=== PATIENT | male | born 1955 | race Hispanic/Latino ===

== ENCOUNTER 2017-08-13 11:24 | Inpatient (IN) | payer BC ==
--- NOTE | 2017-08-13 12:06 | C.PDOC ---
History Of Present Illness Patient MARIA ELENA after syncopal episode at home. Patient states he was going into another room when he felt light-headed and syncopized. heard a thud (was downstairs), came upstairs and saw patient on floor, awake but confused. Patient admits to syncope on Wednesday also, similar symptoms but did not seek medical attention. He denies chest pain, palpitations, SOB, abdominal pain,. He admits to feeling nauseous, generalized weakness, and had 1 episode of bilious vomiting en route to hospital. Patient denies visual changes, extremity weakness, sensory changes, facial droop, slurred speech. Time Seen by Provider: 08/13/17 11:44 Chief Complaint (Nursing): Syncope History Per: Patient, EMS, Family Onset/Duration Of Symptoms: Mins Current Symptoms Are (Timing): Better Activity At Onset Of Symptoms: Standing, Walking Associated Symptoms Preceding Syncopal Episode: Lightheadedness Past Medical History Reviewed: Historical Data, Nursing Documentation, Vital Signs Vital Signs: Last Vital Signs Temp 97.5 F L 08/15/17 07:20 Pulse 110 H 08/15/17 07:30 Resp 20 08/15/17 07:20 BP 150/70 08/15/17 09:08 Pulse Ox 95 08/15/17 07:20 - Medical History PMH: HTN Family History: States: No Known Family Hx - Social History Hx Alcohol Use: Yes Hx Substance Use: No - Immunization History Hx Tetanus Toxoid Vaccination: No Hx Influenza Vaccination: No Hx Pneumococcal Vaccination: No Review Of Systems Except As Marked, All Systems Reviewed And Found Negative. Constitutional: Negative for: Fever, Chills Cardiovascular: Positive for: Light Headedness. Negative for: Chest Pain, Palpitations Respiratory: Negative for: Shortness of Breath Gastrointestinal: Positive for: Nausea, Vomiting. Negative for: Abdominal Pain , Diarrhea Genitourinary: Negative for: Dysuria, Hematuria Neurological: Positive for: Dizziness, Other (syncope). Negative for: Weakness , Numbness, Confusion, Seizures, Altered Mental Status, Headache Physical Exam - Physical Exam Appears: Well, Non-toxic, No Acute Distress Skin: Normal Color, Warm, Dry Eye(s): bilateral: PERRL, EOMI, left: Other (left periorbital ecchymosis) Oral Mucosa: Moist Neck: Normal, Normal ROM, No Step Off Deformity, Supple Cardiovascular: Rhythm Regular Respiratory: Normal Breath Sounds, No Rales, No Rhonchi, No Wheezing Gastrointestinal/Abdominal: Normal Exam, Bowel Sounds, Soft, No Tenderness Neurological/Psych: Oriented x3, Normal Speech, Normal Cognition, Normal Cranial Nerves, No Cerebellar Signs, Normal Motor, Normal Sensation ED Course And Treatment - Laboratory Results Result Diagrams: 08/15/17 08:25 08/15/17 08:25 ECG: Interpreted By Me, Viewed By Me (NSR 96 bpm, left axis deviation, Q waves II, III, aVF, no acute ST/T wave changes ) ECG Interpretation: Abnormal O2 Sat by Pulse Oximetry: 97 (RA) Pulse Ox Interpretation: Normal - CT Scan/US CT HEAD Other Rad Studies (CT/US): Read By Radiologist, Radiology Report Reviewed CT/US Interpretation: Accession No. : [id number]. Patient Name / ID : FRANCISCA DIAMOND / [id number]. Exam Date : 08/13/2017 12:57:57 ( Approved ). Study Comment : Sex / Age : M / 62Y. Creator : Samira Arevalo. Dictator : Babita Alvarez MD. Shoe Cutter : Computer Hardware Designer : Babita Alvarez MD. Approver2 : Report Date : 08/13/2017 13:06:37. My Comment : . PROCEDURE: CT HEAD WITHOUT CONTRAST. HISTORY: Syncope. COMPARISON: None available. TECHNIQUE: Axial computed tomography images were obtained through the head/ brain without intravenous contrast. Radiation dose: Total exam DLP = 838.01 mGy-cm. This CT exam was performed using one or more of the following dose reduction techniques: Automated exposure control, adjustment of the mA and/or kV according to patient size, and/or use of iterative reconstruction technique. FINDINGS: HEMORRHAGE: No intracranial hemorrhage. BRAIN: There are mild chronic microangiopathic changes. There is no mass, mass effect or abnormal extra-axial fluid collection. There are coarse atherosclerotic calcifications in the cavernous carotid arteries. VENTRICLES: There is moderate age-related global parenchymal volume loss and proportionate enlargement of the ventricles and cortical sulci. CALVARIUM: There is no calvarial fracture. There is a small right posterior parietal scalp hematoma. PARANASAL SINUSES: Predominantly clear. MASTOID AIR CELLS: Predominantly clear. OTHER FINDINGS: None. IMPRESSION: No acute intracranial abnormality. Mild chronic microangiopathic changes and moderate age-related global parenchymal volume loss. CT ORBITS Other Rad Studies (CT/US): Read By Radiologist, Radiology Report Reviewed CT/US Interpretation: Accession No. : [id number]. Patient Name / ID : FRANCISCA DIAMOND / [id number]. Exam Date : 08/13/2017 13:00:34 ( Approved ). Study Comment : Sex / Age : M / 62Y. Creator : Samira Arevalo. Dictator : Babita Alvarez MD. Shoe Cutter : Computer Hardware Designer : Babita Alvarez MD. Approver2 : Report Date : 08/13/2017 13:06:43. My Comment : . PROCEDURE: CT ORBITS WITHOUT CONTRAST. HISTORY: Syncope, left orbital injury. COMPARISON: None available. TECHNIQUE: Axial CT images of the orbits were obtained. Coronal and sagittal reformats were generated. Radiation dose: Total exam DLP = 822.28 mGy-cm. This CT exam was performed using one or more of the following dose reduction techniques: Automated exposure control, adjustment of the mA and/or kV according to patient size, and/or use of iterative reconstruction technique. FINDINGS: RIGHT ORBIT: RIGHT BONY ORBIT: There is no acute orbital wall fracture. The lens is normally located. RIGHT INTRAORBITAL STRUCTURES: Globe: Normal. Extraocular muscles: Normal. Post septal space: Normal. Optic Nerve: Normal. Lacrimal Apparatus: Normal. RIGHT PRESEPTAL SOFT TISSUES: Normal. LEFT ORBIT: LEFT BONY ORBIT: There is no acute orbital wall fracture. The lens is normally located. LEFT INTRAORBITAL STRUCTURES: Globe: Normal. Extraocular muscles: Normal. Post septal space: Normal. Optic Nerve: Normal. . Lacrimal Apparatus: Normal. LEFT PRESEPTAL SOFT TISSUES: Normal. OTHER: There is an old fracture deformity in the left nasal bone. Open. IMPRESSION: No acute orbital fracture. No evidence of acute globe injury. Progress Note: Blood work, EKG, CXR, CT head ordered and reviewed. PO Kdur given for mild hypokalemia. - Physician Consult Information Physician Contacted: Jocy Fuller Outcome Of Conversation: Discussed patient with hospitalist, agrees with admission for syncope. Disposition - Disposition Disposition: HOSPITALIZED Disposition Time: 15:19 Condition: STABLE - Clinical Impression Clinical Impression: Closed head injury, Syncope Decision To Admit - Pt Status Changed To: Hospital Disposition Of: Inpatient - Admit Certification Admit to Inpatient:: After my assessment, the patient will require hospitalization for at least two midnights. This is because of the severity of symptoms shown, intensity of services needed, and/or the medical risk in this patient being treated as an outpatient. - InPatient: Physician Admission Certification: I certify that this patient requires 2 or more midnights of care for the following reason:: see notes - . Bed Request Type: Telemetry Admitting Physician: Jocy Fuller Patient Diagnosis: Syncope, Closed head injury
--- NOTE | 2017-08-13 12:37 | RAD ---
PROCEDURE: CHEST RADIOGRAPH, 1 VIEW HISTORY: SYNCOPE COMPARISON: 07/05/2014 FINDINGS: LUNGS: Clear. PLEURA: No pneumothorax or pleural fluid seen. CARDIOVASCULAR: Normal. OSSEOUS STRUCTURES: No significant abnormalities. VISUALIZED UPPER ABDOMEN: Normal. OTHER FINDINGS: None. IMPRESSION: No active disease.
[2017-08-13 12:44] LABS: BASO # 0.1 K/uL (0.0-0.2); BASO % 0.7 % (0.0-2.0); EOS % 0.1 % (0.0-4.0); HEMOGLOBIN 10.8 g/dL (12.0-18.0); LYMPH # 3.1 K/uL (1.0-4.3); LYMPH % 25.7 % (20.0-40.0); MEAN CELL VOLUME 103.2 fL (80.0-94.0); MEAN CORPUSCULAR HEMOGLOBIN 35.4 pg (27.0-31.0); MEAN CORPUSCULAR HGB CONC 34.3 g/dL (33.0-37.0); MEAN PLATELET VOLUME 10.2 fL (7.2-11.7); MONO # 0.8 K/uL (0.0-0.8); MONO % 6.3 % (0.0-10.0); NEUT # 8.2 K/uL (1.8-7.0); NEUT % 67.2 % (50.0-75.0); NRBC % 0.2 % (0.0-2.0); RBC 3.04 Mil/uL (4.40-5.90); RED CELL DISTRIBUTION WIDTH 16.7 % (11.5-14.5); WHITE BLOOD COUNT 12.2 K/uL (4.8-10.8)
[2017-08-13 12:46] LABS: INR 1.2; PROTHROMBIN TIME 14.1 SECONDS (9.7-12.2)
[2017-08-13 12:49] LABS: ALB/GLOB RATIO 0.8 (1.0-2.1); ALBUMIN 3.8 g/dL (3.5-5.0); ALT/SGPT 35 U/L (21-72); AST/SGOT 123 U/L (17-59); BLOOD UREA NITROGEN 12 mg/dL (9-20); CALCIUM 8.4 mg/dl (8.6-10.4); GFR AFRICAN-AMERICAN > 60; GFR NON-AFRICAN AMERICAN > 60
[2017-08-13 13:02] LABS: B-TYPE NATRIURETIC PEPTIDE 109 pg/mL (0-900); CK-MB 1.03 ng/mL (0.0-3.38)
--- NOTE | 2017-08-13 13:22 | CT ---
PROCEDURE: CT HEAD WITHOUT CONTRAST. HISTORY: Syncope COMPARISON: None available. TECHNIQUE: Axial computed tomography images were obtained through the head/brain without intravenous contrast. Radiation dose: Total exam DLP = 838.01 mGy-cm. This CT exam was performed using one or more of the following dose reduction techniques: Automated exposure control, adjustment of the mA and/or kV according to patient size, and/or use of iterative reconstruction technique. FINDINGS: HEMORRHAGE: No intracranial hemorrhage. BRAIN: There are mild chronic microangiopathic changes. There is no mass, mass effect or abnormal extra-axial fluid collection. There are coarse atherosclerotic calcifications in the cavernous carotid arteries. VENTRICLES: There is moderate age-related global parenchymal volume loss and proportionate enlargement of the ventricles and cortical sulci. CALVARIUM: There is no calvarial fracture. There is a small right posterior parietal scalp hematoma. PARANASAL SINUSES: Predominantly clear. MASTOID AIR CELLS: Predominantly clear. OTHER FINDINGS: None. IMPRESSION: No acute intracranial abnormality. Mild chronic microangiopathic changes and moderate age-related global parenchymal volume loss.
--- NOTE | 2017-08-13 13:30 | CT ---
PROCEDURE: CT ORBITS WITHOUT CONTRAST. HISTORY: Syncope, left orbital injury COMPARISON: None available. TECHNIQUE: Axial CT images of the orbits were obtained. Coronal and sagittal reformats were generated. Radiation dose: Total exam DLP = 822.28 mGy-cm. This CT exam was performed using one or more of the following dose reduction techniques: Automated exposure control, adjustment of the mA and/or kV according to patient size, and/or use of iterative reconstruction technique. FINDINGS: RIGHT ORBIT: RIGHT BONY ORBIT: There is no acute orbital wall fracture. The lens is normally located. RIGHT INTRAORBITAL STRUCTURES: Globe: Normal. Extraocular muscles: Normal. Post septal space: Normal. Optic Nerve: Normal. Lacrimal Apparatus: Normal. RIGHT PRESEPTAL SOFT TISSUES: Normal. LEFT ORBIT: LEFT BONY ORBIT: There is no acute orbital wall fracture. The lens is normally located. LEFT INTRAORBITAL STRUCTURES: Globe: Normal. Extraocular muscles: Normal. Post septal space: Normal Optic Nerve: Normal. . Lacrimal Apparatus: Normal. LEFT PRESEPTAL SOFT TISSUES: Normal. OTHER: There is an old fracture deformity in the left nasal bone. Open IMPRESSION: No acute orbital fracture. No evidence of acute globe injury.
[2017-08-13] MEDS ORDERED: Potassium Chloride 20 mEq ER Tab PO STA ×2 (14:22→23:31)
[2017-08-13] MEDS ORDERED: Potassium Chloride 20 mEq ER Tab PO ONE (14:34)
--- NOTE | 2017-08-13 15:28 | CP.PCM.HP ---
<Sven Eason - Last Filed: 08/13/17 18:54> History of Present Illness - History of Present Illness History of Present Illness: CC: Syncopal episodes; jaundice HPI: Patient is a 62 year old with PMHx of ETOH abuse, HTN (diagnosed three years ago ), gout, hepatitis C, and spinal stenosis, presenting after syncopal episodes in his home. Pt's at bedside helping with history. Patient admits walking to bathroom this AM, and the next thing he remembers "he was on the ground." heard pt fall and found him on the ground awake, eyes open, but non- responsive for 2-3 minutes. She denies seizure-like activity or confusion when pt came to. Patient denies prodrome of palpitations, chest pain but admits frequent lightheadedness that has worsened over the last week "that makes him feel unsteady on his feet." He denies vertigo or acute changes of vision. As per EMS, pt was A&Ox3 when they arrived on scene, with BG 180. Patient A&Ox3 on arrival, c/o nausea, vomiting. Pt reports vomiting total of 3 times today, the same bilious emesis 3 times. Pt reports falling "8-10 times" in the past week, with the most recent being 3 days ago, when he also hit his head. Pt did not seek treatment after prior falls. Patient admits drinking 1 pint of Vodka "not every day, but almost every day since correction in 2004." He denies history of tremors, hallucinations, extremity weakness, numbness/tingling in his extremities, or formication. Patient admits history of hepatitis C, acquired from eating "bad [place] of [place] food" ~ 25-30 years ago. He states that "3 weeks to one month ago" he noticed his urine became "darker than normal." states she first noticed the yellowing discoloration of patient's eyes/chest "today after the fall." Admits to EGD performed approximately in 2009 that showed "irritation of the stomach." Admits to recent anorexia due to "pain after eating." Patient denies abdominal pain, hematochezia, hematemesis, or episodes of vomiting prior to the fall. He further denies dysuria, hematuria, nocturia, or increased frequency. PMHx: HTN, EtOH abuse, Spinal stenosis, Gout, Hepatitis C PSHx: Umbilical hernia repair (2001) SHx: Tobacco - 1.5 ppd (cigarettes) x 30 yrs; 1 pint of VODKA nearly daily x 13 years; Marijuana (one to two blunts during the week); Retired [employer] Officer (2004) Fam Hx: Mother - DM Allergies: denies Present on Admission - Present on Admission Any Indicators Present on Admission: No Review of Systems - Constitutional Constitutional: Anorexia. absent: Chills, Fever, Weight Loss, Weakness - EENT Eyes: absent: Blurred Vision, Diplopia Ears: Dizziness. absent: Tinnitus Nose/Mouth/Throat: absent: Epistaxis, Nasal Congestion, Sore Throat - Cardiovascular Cardiovascular: Lightheadedness, Syncope. absent: Chest Pain, Dyspnea - Respiratory Respiratory: absent: Cough, Hemoptysis - Gastrointestinal Gastrointestinal: Nausea, Vomiting (3 episodes today, bilious). absent: Abdominal Pain, Dysphagia - Genitourinary Genitourinary: Other (urine darker in last month). absent: Difficulty Urinating , Dysuria, Hematuria, Pyuria, Nocturia, Urinary Incontinence, Urinary Hesitance - Musculoskeletal Musculoskeletal: Back Pain. absent: Numbness, Tingling - Integumentary Integumentary: Jaundice ( noticed today). absent: Acne, Dry Skin, Unusual Bruising - Neurological Neurological: absent: Confusion, Focal Weakness, Tingling, Weakness - Psychiatric Psychiatric: absent: Anxiety, Depression, Suicidal Ideation - Endocrine Endocrine: absent: Fatigue, Palpitations, Polyphagia, Polyuria Past Patient History - Past Social History Smoking Status: Former Smoker - CARDIAC Hx Hypertension: Yes - MUSCULOSKELETAL/RHEUMATOLOGICAL Hx Falls: Yes - PSYCHIATRIC Hx Substance Use: No - SURGICAL HISTORY Hx Herniorrhaphy: Yes - ANESTHESIA Hx Anesthesia: Yes Hx Anesthesia Reactions: No Meds Allergies/Adverse Reactions: Allergies Allergy/AdvReac Type Severity Reaction Status Date / Time No Known Allergies Allergy Unverified 08/13/17 11:47 Physical Exam - Constitutional Appears: Well, No Acute Distress - Head Exam Head Exam: absent: ATRAUMATIC, NORMAL INSPECTION Additional comments: Ecchymoses left orbital area; - Eye Exam Eye Exam: Periorbital tenderness, Scleral icterus Pupil Exam: PERRL (sluggish). absent: Unequal Additional comments: pupils sluggish to light - ENT Exam ENT Exam: Mucous Membranes Dry, Normal External Ear Exam. absent: Mucous Membranes Moist, Normal Exam Additional comments: jaundice under tongue - Neck Exam Additional comments: no jvd appreciated; no bruit auscultated - Respiratory Exam Respiratory Exam: Wheezes - Cardiovascular Exam Cardiovascular Exam: Tachycardia, +S1, +S2, +S4, Systolic Murmur (loud) - GI/Abdominal Exam GI & Abdominal Exam: Hernia (ulbilical hernia repair scar), Normal Bowel Sounds , Organomegaly (liver mildly enlarged), Soft. absent: Diminished Bowel Sounds, Guarding, Rebound, Rigid, Tenderness Additional comments: negative downing/rovsing - Extremities Exam Extremities exam: Positive for: normal inspection. Negative for: pedal edema Additional comments: tattoo on left forearm - Back Exam Back exam: absent: CVA tenderness (L), CVA tenderness (R) - Neurological Exam Neurological exam: Abnormal Gait (slow steps), Alert, CN II-XII Intact, Oriented x3 Additional comments: on finger to nose patient would overshoot target then correct "dysmetria" MS 5/5 globally in all extremities Romberg negative, no Pronator drift Admits light touch intact Proprioception, sharp/dull diminished in lower extremities Ataxic gait; prominent heel strike; wide base Results - Vital Signs Recent Vital Signs: Last Vital Signs Temp 97.7 F 08/13/17 11:49 Pulse 100 H 08/13/17 11:49 Resp 16 08/13/17 11:49 BP 173/80 H 08/13/17 11:49 Pulse Ox 97 08/13/17 15:06 - Labs Result Diagrams: 08/13/17 12:33 08/13/17 12:33 Labs: Laboratory Results - last 24 hr 08/13/17 08/13/17 08/13/17 12:33 12:33 12:33 WBC 12.2 H RBC 3.04 L Hgb 10.8 L D Hct 31.4 L MCV 103.2 H D MCH 35.4 H MCHC 34.3 RDW 16.7 H Plt Count 213 MPV 10.2 Neut % (Auto) 67.2 Lymph % (Auto) 25.7 Young % (Auto) 6.3 Eos % (Auto) 0.1 Baso % (Auto) 0.7 Neut # (Auto) 8.2 H Lymph # (Auto) 3.1 Young # (Auto) 0.8 Eos # (Auto) 0.0 Baso # (Auto) 0.1 PT 14.1 H INR 1.2 APTT 31 Sodium 132 Potassium 3.2 L Chloride 84 L Carbon Dioxide 25 Anion Gap 26 H BUN 12 Creatinine 0.7 L Est GFR ( Amer) > 60 Est GFR (Non-Af Amer) > 60 Random Glucose 171 H Calcium 8.4 L Total Bilirubin 8.6 H AST 123 H ALT 35 Alkaline Phosphatase 391 H Total Creatine Kinase 64 CK-MB (Mass) 1.03 Troponin I < 0.0120 NT-Pro-B Natriuret Pep 109 Total Protein 8.4 H Albumin 3.8 Globulin 4.6 H Albumin/Globulin Ratio 0.8 L Assessment & Plan - Assessment and Plan (Free Text) Plan: Syncope Admit to tele Head CT (08/13/2017): No acute intracranial abnormality. Mild chronic microangiopathic changes and moderate age-related global parenchymal volume loss. (see full report) Orbit CT (08/13/2017): No acute orbital fracture. No evidence of acute globe injury. EKG: Rate 96 bpm, NSR, Q waves in inferior leads, No ST/T wave changes Troponin negative x 1; f/u 2 additional BNP 109 CXR (08/13/17): NAD NS @ 100cc/hr Neuro Consult: Dr. Ball, help appreciated - f/u CTA head/neck - f/u EEG (will not be performed until 08/16/17) Cardio Consult: Dr. Washburn, help appreciated - Mycocardial perfusion stress f/u CTA Head/Neck, ECHO, Carotid US f/u RPR, B12, Folate, TSH, Vitamin D f/u UA, UDS Abnormal EKG - pathologic Q waves EKG shows ischemic changes in inferior leads - f/u additional EKGs/troponins Cardio Consult: Dr. Washburn, help appreciated - Mycocardial perfusion stress - monitor on telemetry Elevated Bilirubin Pt noticed darker urine 3 weeks ago, noticed scleral icterus day of admission T bili 8.6 f/u US abdomen GI consult: Dr. Zaragoza - f/u reccs Transaminitis AST/ALT 123/35, Alk phos 379 f/u US abdomen CAD HOLD ASA PO due to hematoma Macrocytic Anemia Pt with long history of alcohol abuse MCV: 103.2; Hgb: 10.8 f/u iron studies, folate, b/12 levels Hx of EtOH abuse EtOH: 12 on admission MV/Thiamine/Folic Acid PO daily f/u UDS Elevated BG B Accuchecks f/u A1C, lipid panel Electrolyte abnormality K 3.2, repleted Cl 84, pt on NS Mg 0.9, repleted f/u BMP, Mg level at 10pm 08/13/17 Leukocytosis WBC 12.2, pt afebrile Etiology: unclear Monitor Prophylaxis Protonix 40mg PO Daily HOLD lovenox 40mg SC due to hematome SCDs Sven Eason PGY-2 <Jocy Fuller V - Last Filed: 08/13/17 22:35> Results - Vital Signs Recent Vital Signs: Last Vital Signs Temp 97.8 F 08/13/17 16:30 Pulse 89 08/13/17 17:00 Resp 20 08/13/17 16:30 BP 158/89 H 08/13/17 16:30 Pulse Ox 95 08/13/17 16:30 - Labs Result Diagrams: 08/13/17 12:33 08/13/17 12:33 Labs: Laboratory Results - last 24 hr 08/13/17 08/13/17 08/13/17 12:33 12:33 12:33 WBC 12.2 H RBC 3.04 L Hgb 10.8 L D Hct 31.4 L MCV 103.2 H D MCH 35.4 H MCHC 34.3 RDW 16.7 H Plt Count 213 MPV 10.2 Neut % (Auto) 67.2 Lymph % (Auto) 25.7 Young % (Auto) 6.3 Eos % (Auto) 0.1 Baso % (Auto) 0.7 Neut # (Auto) 8.2 H Lymph # (Auto) 3.1 Young # (Auto) 0.8 Eos # (Auto) 0.0 Baso # (Auto) 0.1 PT 14.1 H INR 1.2 APTT 31 Sodium 132 Potassium 3.2 L Chloride 84 L Carbon Dioxide 25 Anion Gap 26 H BUN 12 Creatinine 0.7 L Est GFR ( Amer) > 60 Est GFR (Non-Af Amer) > 60 Random Glucose 171 H Hemoglobin A1c Calcium 8.4 L Magnesium 0.9 L* Iron TIBC % Saturation Total Bilirubin 8.6 H Direct Bilirubin AST 123 H ALT 35 Alkaline Phosphatase 391 H Total Creatine Kinase 64 CK-MB (Mass) 1.03 Troponin I < 0.0120 NT-Pro-B Natriuret Pep 109 Total Protein 8.4 H Albumin 3.8 Globulin 4.6 H Albumin/Globulin Ratio 0.8 L Urine Color Urine Clarity Urine pH Ur Specific Astor Urine Protein Urine Glucose (UA) Urine Ketones Urine Blood Urine Nitrate Urine Bilirubin Urine Urobilinogen Ur Leukocyte Esterase Urine WBC (Auto) Urine RBC (Auto) Ur Squamous Epith Cells Hyaline Casts Urine Opiates Screen Urine Methadone Screen Ur Barbiturates Screen Ur Phencyclidine Scrn Ur Amphetamines Screen U Benzodiazepines Scrn U Oth Cocaine Metabols Alcohol, Quantitative 12 H 08/13/17 08/13/17 08/13/17 18:49 18:49 18:49 WBC RBC Hgb Hct MCV MCH MCHC RDW Plt Count MPV Neut % (Auto) Lymph % (Auto) Young % (Auto) Eos % (Auto) Baso % (Auto) Neut # (Auto) Lymph # (Auto) Young # (Auto) Eos # (Auto) Baso # (Auto) PT INR APTT Sodium Potassium Chloride Carbon Dioxide Anion Gap BUN Creatinine Est GFR ( Amer) Est GFR (Non-Af Amer) Random Glucose Hemoglobin A1c 4.9 Calcium Magnesium Iron TIBC % Saturation Total Bilirubin Direct Bilirubin 6.7 H AST ALT Alkaline Phosphatase Total Creatine Kinase CK-MB (Mass) Troponin I < 0.0120 NT-Pro-B Natriuret Pep Total Protein Albumin Globulin Albumin/Globulin Ratio Urine Color Urine Clarity Urine pH Ur Specific Astor Urine Protein Urine Glucose (UA) Urine Ketones Urine Blood Urine Nitrate Urine Bilirubin Urine Urobilinogen Ur Leukocyte Esterase Urine WBC (Auto) Urine RBC (Auto) Ur Squamous Epith Cells Hyaline Casts Urine Opiates Screen Urine Methadone Screen Ur Barbiturates Screen Ur Phencyclidine Scrn Ur Amphetamines Screen U Benzodiazepines Scrn U Oth Cocaine Metabols Alcohol, Quantitative 08/13/17 08/13/17 08/13/17 18:49 21:30 21:30 WBC RBC Hgb Hct MCV MCH MCHC RDW Plt Count MPV Neut % (Auto) Lymph % (Auto) Young % (Auto) Eos % (Auto) Baso % (Auto) Neut # (Auto) Lymph # (Auto) Young # (Auto) Eos # (Auto) Baso # (Auto) PT INR APTT Sodium Potassium Chloride Carbon Dioxide Anion Gap BUN Creatinine Est GFR ( Amer) Est GFR (Non-Af Amer) Random Glucose Hemoglobin A1c Calcium Magnesium Iron 167 TIBC 220 L % Saturation 76 H Total Bilirubin Direct Bilirubin AST ALT Alkaline Phosphatase Total Creatine Kinase CK-MB (Mass) Troponin I NT-Pro-B Natriuret Pep Total Protein Albumin Globulin Albumin/Globulin Ratio Urine Color Yudelka Urine Clarity Hazy Urine pH 5.0 Ur Specific Astor 1.025 Urine Protein 1+ H Urine Glucose (UA) Normal Urine Ketones 1+ H Urine Blood Negative Urine Nitrate Negative Urine Bilirubin 2+ H Urine Urobilinogen 4.0 Ur Leukocyte Esterase Neg Urine WBC (Auto) 4 Urine RBC (Auto) 1 Ur Squamous Epith Cells < 1 Hyaline Casts 3-5 H Urine Opiates Screen Negative Urine Methadone Screen Negative Ur Barbiturates Screen Negative Ur Phencyclidine Scrn Negative Ur Amphetamines Screen Negative U Benzodiazepines Scrn Negative U Oth Cocaine Metabols Negative Alcohol, Quantitative Attending/Attestation - Attestation I have personally seen and examined this patient.: Yes I have fully participated in the care of the patient.: Yes I have reviewed all pertinent clinical information: Yes Notes (Text): Patient seen, examined and case discussed with day-time resident. Patient seen on 6 tower with history of Hepatitis (was treated), hypertension, etoh abuse, spinal stenosis, gout comes in following recurrent syncopal episodes this past week. Patient lives in 2 floor apartment, noting today, patient fell on the floor, heard the thud came to evaluate it, and he was difficult to get up. Per discussion with patient he reports he fell twice this week. With the resident, he has noted to fallen 8-10x this week. Patient has not gone to the hospitalization following these falls. Patient reports prior episodes this week, he has noted he has fallen while going up and downstairs. Patient reports he feels unsteady, but denies vertigo, denies dizziness, but reports he feels off. Per , she noted that appeared jaundice today and this was the first time she noticed the yellowing of patient's eyes. Patient reports he had not noticed his eyes changing color but reports urine had become dark that normal. Patient reports he drink 1/5 pint of vodka every day since he has retired in 2004. Patient had served in the [employer] in [place]. Patient reports he has endoscopy and colonoscopy at age 54 [address] Zaragoza (GI) cannot recall results. Patient denies black stools, denies BRBPR. Patient reports as of lately his stomach has been bothering him, and he is only able to tolerate liquids such as soup. He does not describe me dysphagia nor odonophagia Patient denies chest pain, denies palpitations, denies personal history of heart attack, nor family history of heart attack, was a former smoker, and has not seen moshgiach in the past. Patient has not seen his primary care doctor in two years. Resident and I have walked the patient around the hospital floor from his room to around the nursing station. There is no antalagic gait, no pronator drift, he is able to walk, but appears unsteady and needs to use props such as chair as we walk on the floor. He denies feeling lightheaded nor chest pain as we walk him. We have attempted to discuss code status with the patient with his present , he has not made definite decisions in regarding code status. We have encourage think about these items since they are difficult in nature to talk about. We did have strong discussion about the detention adverse effects of alcohol drinking, he reports he has never withdrawn from alcohol, including changes to the GI, aging, and cognitive function. We also have a strong discussion about smoking since he is also a smoker, which is aware of the risk including cancer. I have spoken with cardiology person investigator given concern for possible arrhythmia given patient has Q waves in Lead 3 and we do not have prior EKG to compare. He has recommended for echo and stress test. Assessment/Plan 1) Recurrent Syncope * Admit to telemetry * Etiologies to exclude: arrhythmia, ischemic heart disease, alcoholism, seizure , electrolyte imbalance * Cardiology (Dr. Washburn) person investigator-->help appreciated * Mycocardial perfusion stress * Echocardiogram * Neurology (Dr. Ball) person investigator--> help appreciated * - f/u CTA head/neck * f/u EEG (will not be performed until 08/16/17) * Head CT (08/13/2017): No acute intracranial abnormality. Mild chronic microangiopathic changes and moderate age-related global parenchymal volume loss. (see full report) * Orbit CT (08/13/2017): No acute orbital fracture. No evidence of acute globe injury. * Fall precautions * EKG: Rate 96 bpm, NSR, Q waves in inferior leads, No ST/T wave changes * Repeat EKG and ROMIs, Q6Hs * BNP 109 * CXR (08/13/17): No active disease * Urine drug screen: positive for cannabis * Elevated alcohol * TSH, Free T4 in AM 2) Abnormal EKG - pathologic Q waves * Cardiology Consult: Dr. Washburn, help appreciated * Mycocardial perfusion stress * monitor on telemetry * echocardiogram * EKG: Rate 96 bpm, NSR, Q waves in inferior leads, No ST/T wave changes * Repeat EKG and ROMIs, Q6Hs * BNP 109 * CXR (08/13/17): No active disease * Check a1c, lipid panel * Aspirin 81mg PO daily 3. Hyperbilirubinemia Transaminitis ETOH Abuse History of Hepatitis Jaundice * GI (Dr. Zaragoza) person investigator/patient's GI-->help appreciated * Pt noticed darker urine 3 weeks ago, noticed scleral icterus day of admission * Elevated total bilirubin 8.6 * f/u US abdomen * Check hepatitis panel, HIV * Elevated alcohol: 12 4. Macrocytic Anemia * Pt with long history of alcohol abuse and only able to tolerate liquids * MCV: 103.2; Hgb: 10.8 * f/u iron studies, folate, b12 levels, reticulocyte count, haptoglobin 5. Hx of EtOH abuse * EtOH: 12 on admission * MVi 1 tab PO daily * Thiamine 100mg PO daily * Folic Acid 1mg PO daily * Monitor on telemetry * Elevated alcohol on admission 6) Hyperglycemia * Accuchecks QAC and HS * f/u A1C, lipid panel 7) Electrolyte abnormality * K 3.2, repleted * Mg 0.9, repleted * f/u BMP, Mg level at 10pm 08/13/17 8) Leukocytosis * WBC 12.2, pt afebrile * Etiology likely reactive since s/p fall * Monitor * Order blood cultures X2, urine culture r/o infection * Chest xray: no acute disease 9) Hypertension * Norvasc 5mg PO daily * Enalapril 10mg PO daily * Aspirin 81mg PO daily 10) Tobacco cessation Alcohol Cessation * Strongly counselled at bedside on admission 11) Prophylaxis * Repeat CT head to monitor scalp hematoma prior to starting chemical anticoagulation to prevent expansion * Protonix 40mg IVP daily * Aspirin 81mg Po daily * Seizure precautions * Aspiration precautions * NS 100cc/hr to stop at midnight
[2017-08-13] MEDS: Magnesium Sulfate 1 gm in D5W 1 GM/100 ML BAG IVPB SCH ×3 (16:38→23:50)
--- NOTE | 2017-08-13 17:01 | CP.PCM.CON ---
History of Present Illness - History of Present Illness History of Present Illness: I was asked to see patient by Dr Fuller Patient is a 62 year old male with PMH HTn who presents with syncope. The patient noted 2 syncopal events this week, with his finding him on the floor. The patient was noted states for the last 2 months he has progressive dyspnea with walking a flight of stairs. Review of Systems - Constitutional Constitutional: absent: As Per HPI, Anorexia, Chills, Daytime Sleepiness, Excessive Sweating, Fatigue, Fever, Frequent Falls, Headache, Increased Appetite , Lethargy, Malaise, Night Sweats, Snoring, Sleep Apnea, Weight Gain, Weight Loss, Weakness, Other - EENT Eyes: absent: As Per HPI, Blind Spots, Blurred Vision, Change in Vision, Decreased Night Vision, Diplopia, Discharge, Dry Eye, Exophthalmos, Floaters, Irritation, Itchy Eyes, Loss of Peripheral Vision, Pain, Photophobia, Requires Corrective Lenses, Sees Flashes, Spots in Vision, Tunnel Vision, Other Visual Disturbances, Loss of Vision, Other Ears: absent: As Per HPI, Decreased Hearing, Ear Discharge, Ear Pain, Tinnitus, Abnormal Hearing, Disequilibrium, Dizziness, Other Nose/Mouth/Throat: absent: As Per HPI, Epistaxis, Nasal Congestion, Nasal Discharge, Nasal Obstruction, Nasal Trauma, Nose Pain, Post Nasal Drip, Sinus Pain, Sinus Pressure, Bleeding Gums, Change in Voice, Dental Pain, Dry Mouth, Dysphagia, Halitosis, Hoarsness, Lip Swelling, Mouth Lesions, Mouth Pain, Odynophagia, Sore Throat, Throat Swelling, Tongue Swelling, Facial Pain, Neck Pain, Neck Mass, Other - Cardiovascular Cardiovascular: Dyspnea on Exertion - Respiratory Respiratory: Dyspnea - Gastrointestinal Gastrointestinal: absent: As Per HPI, Abdominal Pain, Belching, Bloating, Change in Bowel Habits, Change in Stool Character, Coffee Ground Emesis, Constipation, Cramping, Diarrhea, Dyspepsia, Dysphagia, Early Satiety, Excessive Flatus, Fecal Incontinence, Heartburn, Hematemesis, Hematochezia, Loose Stools, Melena, Nausea, Odynophagia, Temesmus, Vomiting, Other - Genitourinary Genitourinary: absent: As Per HPI, Change in Urinary Stream, Difficulty Urinating, Dysuria, Flank Pain, Hematuria, Pyuria, Nocturia, Urinary Incontinence, Urinary Frequency, Urinary Hesitance, Urinary Urgency, Voiding Freq/Small Amts, Freq UTI, Hx Renal/Bladder Calculi, Hx /Renal Surgery, Bladder Distension, Other - Musculoskeletal Musculoskeletal: absent: As Per HPI, Abnormal Gait, Arthralgias, Atrophy, Back Pain, Deformity, Joint Swelling, Limited Range of Motion, Loss of Height, Muscle Cramps, Muscle Weakness, Myalgias, Neck Pain, Numbness, Radiating Pain into Limb, Stiffness, Tingling, Other - Integumentary Integumentary: absent: As Per HPI, Acne, Alopecia, Bleeding Lesions, Change in Hair, Change in Nails, Change in Pigmentation, Changing Lesions, Dry Skin, Erythema, Furuncle, Hirsutism, Lesions, New Lesions, Non-Healing Lesions, Photosensitivity, Pruritus, Rash, Skin Pain, Skin Ulcer, Sores, Striae, Swelling , Unusual Bruising, Wounds, Jaundice, Other - Neurological Neurological: Syncope - Psychiatric Psychiatric: absent: As Per HPI, Abnormal Sleep Pattern, Anhedonia, Anxiety, Auditory Hallucinations, Behavioral Changes, Change in Appetite, Change in Libido, Confusion, Depression, Difficulty Concentrating, Hallucinations, Homicidal Ideation, Hopelessness, Irritability, Memory Loss, Mood Swings, Panic Attacks, Paranoia, Suicidal Ideation, Visual Hallucinations, Tactile Hallucinations, Other - Endocrine Endocrine: absent: As Per HPI, Change in Body Appearance, Change in Libido, Cold Intolorance, Deepening of Voice, Excessive Sweating, Fatigue, Flushing, Heat Intolorance, Increase in Ring/Shoe/Hat Size, Palpitations, Polydipsia, Polyphagia, Polyuria, Other - Hematologic/Lymphatic Hematologic: absent: As Per HPI, Easy Bleeding, Easy Bruising, Lymphadenopathy, Other Past Patient History - Past Social History Smoking Status: Former Smoker - CARDIAC Hx Hypertension: Yes - MUSCULOSKELETAL/RHEUMATOLOGICAL Hx Falls: Yes - PSYCHIATRIC Hx Substance Use: No - SURGICAL HISTORY Hx Herniorrhaphy: Yes - ANESTHESIA Hx Anesthesia: Yes Hx Anesthesia Reactions: No Meds Allergies/Adverse Reactions: Allergies Allergy/AdvReac Type Severity Reaction Status Date / Time No Known Allergies Allergy Unverified 08/13/17 11:47 - Medications Medications: Current Medications Amlodipine Besylate (Norvasc) 5 mg PO Q24H [facility] Enalapril Maleate (Vasotec) 10 mg PO DAILY [facility] Magnesium Sulfate/Dextrose (Magnesium Sulfate 1 Gm/100 Ml D5w) 1 gm in 100 mls @ 100 mls/hr IVPB Q30M [facility] Stop: 08/13/17 17:29 Last Admin: 08/13/17 16:38 Dose: 100 mls/hr Physical Exam - Constitutional Appears: Non-toxic - Head Exam Head Exam: NORMAL INSPECTION - Eye Exam Eye Exam: Normal appearance - ENT Exam ENT Exam: Mucous Membranes Moist - Neck Exam Neck exam: Positive for: Normal Inspection - Respiratory Exam Respiratory Exam: NORMAL BREATHING PATTERN - Cardiovascular Exam Cardiovascular Exam: REGULAR RHYTHM - GI/Abdominal Exam GI & Abdominal Exam: Normal Bowel Sounds - Rectal Exam Rectal Exam: Deferred - Extremities Exam Extremities exam: Negative for: pedal edema - Back Exam Back exam: NORMAL INSPECTION - Neurological Exam Neurological exam: Alert, Oriented x3 - Psychiatric Exam Psychiatric exam: Normal Affect - Skin Skin Exam: Normal Color Results - Vital Signs Recent Vital Signs: Last Vital Signs Temp 98.3 F 08/13/17 15:27 Pulse 96 H 08/13/17 15:27 Resp 18 08/13/17 15:27 BP 151/75 H 08/13/17 15:27 Pulse Ox 97 08/13/17 15:27 - Labs Result Diagrams: 08/13/17 12:33 08/13/17 12:33 Labs: Laboratory Results - last 24 hr 08/13/17 08/13/17 08/13/17 12:33 12:33 12:33 WBC 12.2 H RBC 3.04 L Hgb 10.8 L D Hct 31.4 L MCV 103.2 H D MCH 35.4 H MCHC 34.3 RDW 16.7 H Plt Count 213 MPV 10.2 Neut % (Auto) 67.2 Lymph % (Auto) 25.7 [place] % (Auto) 6.3 Eos % (Auto) 0.1 Baso % (Auto) 0.7 Neut # (Auto) 8.2 H Lymph # (Auto) 3.1 [place] # (Auto) 0.8 Eos # (Auto) 0.0 Baso # (Auto) 0.1 PT 14.1 H INR 1.2 APTT 31 Sodium 132 Potassium 3.2 L Chloride 84 L Carbon Dioxide 25 Anion Gap 26 H BUN 12 Creatinine 0.7 L Est GFR ( Amer) > 60 Est GFR (Non-Af Amer) > 60 Random Glucose 171 H Calcium 8.4 L Magnesium 0.9 L* Total Bilirubin 8.6 H AST 123 H ALT 35 Alkaline Phosphatase 391 H Total Creatine Kinase 64 CK-MB (Mass) 1.03 Troponin I < 0.0120 NT-Pro-B Natriuret Pep 109 Total Protein 8.4 H Albumin 3.8 Globulin 4.6 H Albumin/Globulin Ratio 0.8 L Alcohol, Quantitative 12 H - EKG Data EKG Interpreted by: Myself EKG shows normal: Sinus rhythm - EKG Data EKG Specific Queries Q Waves: II, III, AVF Assessment & Plan (1) Syncope Assessment and Plan: may be cardiac in origin. recommend telemetry. Status: Acute (2) CAD (coronary artery disease) Assessment and Plan: ekg shows inferior MA. recommend echo, stress test. Status: Acute
[2017-08-13] MEDS ORDERED: Sodium Chloride 0.9% 1,000 ML IV SCH (17:15)
[2017-08-13] MEDS ORDERED: Aspirin 325 mg EC Tablets PO STA (17:20)
[2017-08-13 19:06] LABS: IRON 167 ug/dL (49-181)
[2017-08-13 19:15] LABS: % IRON SATURATION 76 (20-55); TOTAL IRON BINDING CAPACITY 220 ug/dL (250-450)
[2017-08-13] MEDS ORDERED: Iodixanol 320 MG/ML 100 ML BOTTLE IV ONE ×2 (19:15→20:38)
[2017-08-13 21:40] LABS: SQUAMOUS EPITHIAL < 1 /hpf (0-5); URINE BILIRUBIN 2+ (NEGATIVE); URINE BLOOD NEGATIVE (NEGATIVE); URINE CLARITY Hazy (Clear); URINE COLOR Amber (YELLOW); URINE GLUCOSE (UA) NORMAL (Normal); URINE LEUKOCYTE ESTERASE NEG Leu/uL (Negative); URINE PROTEIN 1+ mg/dL (NEGATIVE)
[2017-08-13 21:54] LABS: BARBITURATES, UR NEGATIVE (NEGATIVE); BENZODIAZEPINES, UR NEGATIVE (NEGATIVE); OPIATES, UR NEGATIVE (NEGATIVE); PHENCYCLIDINE, UR NEGATIVE (NEGATIVE)
[2017-08-13] MEDS: Multiple Vitamins Tab PO SCH (22:26)
[2017-08-13] MEDS ORDERED: Magnesium Sulfate 1 gm in D5W 1 GM/100 ML BAG IVPB SCH (22:30)
[2017-08-13 23:07] LABS: BLOOD UREA NITROGEN 11 mg/dL (9-20); CALCIUM 8.1 mg/dl (8.6-10.4); GFR AFRICAN-AMERICAN > 60; GFR NON-AFRICAN AMERICAN > 60
[2017-08-14] MEDS: Magnesium Sulfate 1 gm in D5W 1 GM/100 ML BAG IVPB SCH ×3 (00:28→09:15)
[2017-08-14 02:12] LABS: CK-MB 0.54 ng/mL (0.0-3.38)
--- NOTE | 2017-08-14 07:12 | CP.PCM.PN ---
Subjective - Date & Time of Evaluation Date of Evaluation: 08/14/17 Time of Evaluation: 07:00 - Subjective Subjective: chart labs reviewed. await echo. stress test wednesday Objective - Vital Signs/Intake and Output Vital Signs (last 24 hours): Temp Pulse Resp BP Pulse Ox 98 F 83 20 149/77 95 08/14/17 04:18 08/14/17 04:18 08/14/17 04:18 08/14/17 04:18 08/14/17 04:18 Intake and Output: 08/14/17 08/14/17 06:59 18:59 Intake Total 1140 Balance 1140 - Medications Medications: Current Medications Amlodipine Besylate (Norvasc) 5 mg PO Q24H [facility] Last Admin: 08/13/17 22:26 Dose: 5 mg Aspirin (Ecotrin) 81 mg PO DAILY [facility] Enalapril Maleate (Vasotec) 10 mg PO DAILY [facility] Enoxaparin Sodium (Lovenox) 40 mg SC DAILY [facility] Folic Acid (Folic Acid) 1 mg PO DAILY [facility] Multivitamins (Hexavitamin) 1 tab PO DAILY [facility] Last Admin: 08/13/17 22:26 Dose: 1 tab Pantoprazole Sodium (Protonix Inj) 40 mg IVP DAILY [facility] Thiamine HCl (Vitamin B1 Tab) 100 mg PO DAILY [facility] Last Admin: 08/13/17 22:25 Dose: 100 mg - Labs Labs: 08/13/17 12:33 08/13/17 22:50 PT 14.1 SECONDS (9.7-12.2) H 08/13/17 12:33 INR 1.2 08/13/17 12:33 APTT 31 SECONDS (21-34) 08/13/17 12:33 Assessment and Plan (1) Syncope Status: Acute (2) CAD (coronary artery disease) Status: Acute
[2017-08-14 07:45] LABS: BASO % 0.4 % (0.0-2.0); EOS % 0.5 % (0.0-4.0); HEMOGLOBIN 9.5 g/dL (12.0-18.0); LYMPH # 1.2 K/uL (1.0-4.3); LYMPH % 17.8 % (20.0-40.0); MEAN CORPUSCULAR HEMOGLOBIN 36.4 pg (27.0-31.0); MEAN PLATELET VOLUME 9.3 fL (7.2-11.7); MONO # 0.5 K/uL (0.0-0.8); MONO % 7.3 % (0.0-10.0); NEUT # 4.9 K/uL (1.8-7.0); NRBC % 0.1 % (0.0-2.0); RBC 2.6 Mil/uL (4.40-5.90); RED CELL DISTRIBUTION WIDTH 16.5 % (11.5-14.5); WHITE BLOOD COUNT 6.6 K/uL (4.8-10.8)
[2017-08-14 07:46] LABS: INR 1.2; PROTHROMBIN TIME 13.6 SECONDS (9.7-12.2)
--- NOTE | 2017-08-14 07:55 | CP.PCM.PN ---
<SereneNette - Last Filed: 08/14/17 12:10> Subjective - Date & Time of Evaluation Date of Evaluation: 08/14/17 Time of Evaluation: 12:07 - Subjective Subjective: Progress note Patient seen and examined at bedside. No acute events overnight. Patient states he is feeling okay. Patient denies headache, dizziness, shortness of breath, chest pain. It was discussed with and sister that patient has been more recluse lately and has been struggling with gait changes and multiple episodes of pre-syncope as well as syncopal episodes. and sister said that he does not want to harm himself but just doesn't want to talk to people that often anymore. They were explained that neurologist was on board and that we were doing multiple studies to follow up with CT head and carotid artery studies to test for stenosis. It was explained to patient the importance of alcohol cessation. Patient stated that he understood. Objective - Vital Signs/Intake and Output Vital Signs (last 24 hours): Temp Pulse Resp BP Pulse Ox 97.7 F 84 20 134/78 97 08/14/17 07:35 08/14/17 07:35 08/14/17 07:35 08/14/17 07:35 08/14/17 07:35 Intake and Output: 08/14/17 08/14/17 06:59 18:59 Intake Total 1140 Balance 1140 - Medications Medications: Current Medications Amlodipine Besylate (Norvasc) 5 mg PO Q24H [facility] Last Admin: 08/13/17 22:26 Dose: 5 mg Aspirin (Ecotrin) 81 mg PO DAILY [facility] Enalapril Maleate (Vasotec) 10 mg PO DAILY [facility] Enoxaparin Sodium (Lovenox) 40 mg SC DAILY [facility] Folic Acid (Folic Acid) 1 mg PO DAILY [facility] Multivitamins (Hexavitamin) 1 tab PO DAILY [facility] Last Admin: 08/13/17 22:26 Dose: 1 tab Pantoprazole Sodium (Protonix Inj) 40 mg IVP DAILY [facility] Thiamine HCl (Vitamin B1 Tab) 100 mg PO DAILY [facility] Last Admin: 08/13/17 22:25 Dose: 100 mg - Labs Labs: 08/13/17 12:33 08/13/17 22:50 PT 14.1 SECONDS (9.7-12.2) H 03/30/18 12:33 INR 1.2 08/13/17 12:33 APTT 31 SECONDS (21-34) 08/13/17 12:33 - Additional Findings Additional findings: - Constitutional Appears: Well, No Acute Distress - Head Exam Head Exam: absent: ATRAUMATIC, NORMAL INSPECTION Additional comments: Ecchymoses left orbital area; - Eye Exam Eye Exam: Periorbital tenderness, Scleral icterus Pupil Exam: PERRL (sluggish to light stimulation). absent: Unequal - ENT Exam ENT Exam: Mucous Membranes Dry, Normal External Ear Exam. absent: Mucous Membranes Moist, Normal Exam - Neck Exam Additional comments: no jvd; no bruit auscultated - Respiratory Exam Respiratory Exam: Wheezes - Cardiovascular Exam Cardiovascular Exam: Tachycardia, +S1, +S2, +S4, Systolic Murmur (loud) - GI/Abdominal Exam GI & Abdominal Exam: Hernia (ulbilical hernia repair scar), Normal Bowel Sounds , Organomegaly (liver mildly enlarged), Soft. absent: Diminished Bowel Sounds, Guarding, Rebound, Rigid, Tenderness Additional comments: negative downing's sign. rovsing's sign - Extremities Exam Extremities exam: Positive for: normal inspection. Negative for: pedal edema Additional comments: tattoo on left forearm - Back Exam Back exam: absent: CVA tenderness (L), CVA tenderness (R) - Neurological Exam Neurological exam: Alert, CN II-XII Intact, Oriented x3 Additional comments: finger to nose patient would overshoot target then correct "dysmetria" Proprioception, sharp/dull diminished in lower extremities Assessment and Plan - Assessment and Plan (Free Text) Assessment: Syncope Admit to tele Head CT (08/13/2017): No acute intracranial abnormality. Mild chronic microangiopathic changes and moderate age-related global parenchymal volume loss. (see full report) Orbit CT (08/13/2017): No acute orbital fracture. No evidence of acute globe injury. EKG: Rate 96 bpm, NSR, Q waves in inferior leads, No ST/T wave changes Troponin negative x 1; f/u 2 additional BNP 109 CXR (08/13/17): NAD NS @ 100cc/hr Neuro Consult: Dr. Ball - f/u CTA head/neck - EEG planned for 2 Cardio Consult: Dr. Washburn - Mycocardial perfusion stress planned for 4/2 f/u CTA Head/Neck f/u ECHO, Carotid US f/u repeat 08/14 CT Head f/u RPR, B12, Folate, TSH, Vitamin D f/u UA, UDS Abnormal EKG - pathologic Q waves EKG shows ischemic changes in inferior leads - f/u additional EKGs/troponins Cardio Consult: Dr. Washburn, help appreciated - Mycocardial perfusion stress - monitor on telemetry Free T4 1.91 TSH 3.51 f/u US abdomen GI consult: Dr. Zaragoza Elevated Bilirubin Pt noticed darker urine 3 weeks ago, noticed scleral icterus day of admission T bili 6.1, downtrending AST downtrending Transaminitis AST/ALT 123/35, Alk phos 379 f/u US abdomen CAD HOLD ASA PO due to hematoma hold lovenox due to hematoma Lipid panel, low HDL Macrocytic Anemia Pt with long history of alcohol abuse MCV: 103.2; Hgb: 10.8 f/u folate, b/12 levels TIBC 167 TIBC 220 % saturation 76 Ferritin 3360 Vit D 43.3 Folate 2.9 Hx of EtOH abuse EtOH: 12 on admission MV/Thiamine/Folic Acid PO daily f/u UDS Elevated BG B Accuchecks f/u A1C Electrolyte abnormality, repleted Will be getting cardiac stress test f/u BMP, Mg level at 10pm 08/13/17 Leukocytosis WBC 12.2, pt afebrile Etiology: unclear Monitor Prophylaxis Protonix 40mg PO Daily HOLD lovenox 40mg SC due to hematome SCDs <Jocy Fuller V - Last Filed: 08/14/17 13:43> Objective - Vital Signs/Intake and Output Vital Signs (last 24 hours): Temp Pulse Resp BP Pulse Ox 97.7 F 84 20 134/78 97 08/14/17 07:35 08/14/17 07:35 08/14/17 07:35 08/14/17 10:23 08/14/17 07:35 Intake and Output: 08/14/17 08/14/17 06:59 18:59 Intake Total 1140 Balance 1140 - Medications Medications: Current Medications Amlodipine Besylate (Norvasc) 5 mg PO Q24H [facility] Last Admin: 08/13/17 22:26 Dose: 5 mg Aspirin (Ecotrin) 81 mg PO DAILY [facility] Last Admin: 08/14/17 10:23 Dose: 81 mg Enalapril Maleate (Vasotec) 10 mg PO DAILY [facility] Last Admin: 08/14/17 10:23 Dose: 10 mg Enoxaparin Sodium (Lovenox) 40 mg SC DAILY [facility] Folic Acid (Folic Acid) 1 mg PO DAILY [facility] Multivitamins (Hexavitamin) 1 tab PO DAILY [facility] Last Admin: 08/14/17 10:23 Dose: 1 tab Pantoprazole Sodium (Protonix Inj) 40 mg IVP DAILY [facility] Last Admin: 08/14/17 10:24 Dose: 40 mg Thiamine HCl (Vitamin B1 Tab) 100 mg PO DAILY [facility] Last Admin: 08/14/17 10:23 Dose: 100 mg - Labs Labs: 08/14/17 07:22 08/14/17 07:22 PT 13.6 SECONDS (9.7-12.2) H 08/14/17 07:22 INR 1.2 08/14/17 07:22 APTT 31 SECONDS (21-34) 08/13/17 12:33 Attending/Attestation - Attestation I have personally seen and examined this patient.: Yes I have fully participated in the care of the patient.: Yes I have reviewed all pertinent clinical information, including history, physical exam and plan: Yes Notes (Text): patient seen, examined and case discussed with day-time resident. Discussed with patient and at bedside as permitted by patient. Updated assessment/plan below: Assessment/Plan 1) Recurrent Syncope * Admit to telemetry * Etiologies to exclude: arrhythmia, ischemic heart disease, alcoholism, seizure , electrolyte imbalance * Cardiology (Dr. Washburn) vehicle controls engineer-->help appreciated * Mycocardial perfusion stress for Wednesday. August 16 2017 * Echocardiogram-->pending read * Neurology (Dr. Ball) vehicle controls engineer--> help appreciated * CTA head/neck (08/14): significant calcified atherosclerotic plaque change in left cartoid bifurcation which appears to result in approximaltely 75% diameter stenosis. calcified atherosclerotic plaque also noted along the cavernous carotid segments extending superiorly into the supraclinoid segments with moderate stenosis. No evidence of occlusion of the cerebral vasculature. No evidence of large aneurysm nor vascula malformation * f/u EEG (will not be performed until 08/16/17) * f/u neurology * Head CT (08/13/2017): No acute intracranial abnormality. Mild chronic microangiopathic changes and moderate age-related global parenchymal volume loss. (see full report) * Head CT (08/14/2017): no change from prior * Orbit CT (08/13/2017): No acute orbital fracture. No evidence of acute globe injury. * Fall precautions * EKG: Rate 96 bpm, NSR, Q waves in inferior leads, No ST/T wave changes * Repeat EKG and ROMIs, Q6Hs * BNP 109 * CXR (08/13/17): No active disease * Urine drug screen: positive for cannabis * Elevated alcohol * TSH: 3.51, Free T4: 1.91 2) Abnormal EKG - pathologic Q waves * Cardiology Consult: Dr. Washburn, help appreciated * Mycocardial perfusion stress on Wednesday, August 16, 2017 * monitor on telemetry * echocardiogram pending read * EKG: Rate 96 bpm, NSR, Q waves in inferior leads, No ST/T wave changes * ARLETH X4: negatives * BNP 109 * CXR (08/13/17): No active disease * [id number]: 4.3 * Lipid panel: T, Cholestrol: 125, LDL 44, HDL: 21 * Aspirin 81mg PO daily 3. Hyperbilirubinemia Transaminitis ETOH Abuse History of Hepatitis Jaundice * GI (Dr. Zaragoza) vehicle controls engineer/patient's GI-->help appreciated * Pt noticed darker urine 3 weeks ago, noticed scleral icterus day of admission * Elevated total bilirubin 8.6 * f/u US abdomen: pending * Hepatitis: negative * HIV: negative * Elevated alcohol: 12 4. Macrocytic Anemia * Pt with long history of alcohol abuse and only able to tolerate liquids * MCV: 103.2; Hgb: 10.8 * Iron: 167, TIBC: 220, iron: 76 * folate: 2.9-->low * b12: 808 * reticulocyte count: 1.4 * Reticulocyte index: 0.58-->hypoproliferation of reticulocytes * haptoglobin: 102 5. Hx of EtOH abuse * EtOH: 12 on admission * MVi 1 tab PO daily * Thiamine 100mg PO daily * Folic Acid 1mg PO daily * Monitor on telemetry * Elevated alcohol on admission 6) Hyperglycemia * Accuchecks QAC and HS * A1C: 4.9 * Lipid panel: T, Cholestrol: 125, LDL 44, HDL: 21 7) Electrolyte abnormality * Monitor K+ and Mg2+ * replete if necessary 8) Leukocytosis-->resolved * WBC 12.2, pt afebrile * Etiology likely reactive since s/p fall * Monitor * Order blood cultures X2, urine culture r/o infection(08/13/17)-->pending * Chest xray: no acute disease 9) Hypertension * Norvasc 5mg PO daily * Enalapril 10mg PO daily * Aspirin 81mg PO daily 10) Tobacco cessation Alcohol Cessation * Strongly counselled at bedside on admission 11) Prophylaxis * Protonix 40mg IVP daily * Aspirin 81mg PO daily * Heparin 5000 units subq Q12H * Seizure precautions * Aspiration precautions * NS 100cc/hr to stop at midnight * PT/OT eval Disposition: f/u neurology in regards to CT head and neck findings, f/u cartoid duplex; awaiting official reads from echocardiogram; patient is scheduled for Myocardial perfusion stress test for August 16, 2017
[2017-08-14 07:57] LABS: MEAN CELL VOLUME 101.1 fL (80.0-94.0)
[2017-08-14 08:09] LABS: ALB/GLOB RATIO 0.8 (1.0-2.1); ALBUMIN 3.1 g/dL (3.5-5.0); ALT/SGPT 35 U/L (21-72); AST/SGOT 102 U/L (17-59); BLOOD UREA NITROGEN 9 mg/dL (9-20); GFR AFRICAN-AMERICAN > 60; GFR NON-AFRICAN AMERICAN > 60; HDL CHOLESTEROL 21 mg/dL (30-70)
[2017-08-14 08:13] LABS: LDL CHOLESTEROL 44 mg/dL (0-129)
[2017-08-14 08:19] LABS: CK-MB 0.61 ng/mL (0.0-3.38)
[2017-08-14 08:20] LABS: FREE T4 1.91 ng/dL (0.78-2.19)
[2017-08-14 08:30] LABS: HEPATITIS B SURFACE AG Negative (NEGATIVE)
[2017-08-14 08:36] LABS: HEPATITIS A IGM NEGATIVE (NEGATIVE); HEPATITIS B CORE AB NEGATIVE (NEGATIVE)
[2017-08-14 08:48] LABS: HEPATITIS C ANTIBODY NEGATIVE (NEGATIVE)
[2017-08-14 09:12] LABS: FOLATE 2.9 ng/mL
[2017-08-14] MEDS ORDERED: Enoxaparin 40 mg Syringe SC SCH (10:00)
--- NOTE | 2017-08-14 10:04 | CT ---
PROCEDURE: CT HEAD WITHOUT CONTRAST. HISTORY: Scalp hematoma COMPARISON: Comparison made with prior CT scan and CTA brain dated 08/13/2017 and 08/14/2017 TECHNIQUE: Axial computed tomography images were obtained through the head/brain without intravenous contrast. Radiation dose: Total exam DLP = 940.18 mGy-cm. This CT exam was performed using one or more of the following dose reduction techniques: Automated exposure control, adjustment of the mA and/or kV according to patient size, and/or use of iterative reconstruction technique. FINDINGS: HEMORRHAGE: No acute parenchymal, subarachnoid or extra-axial hemorrhage. Hemorrhage. BRAIN: Moderate diffuse/confluent chronic periventricular white matter ischemic changes again seen extending peripherally into the deep and subcortical white matter both cerebral hemispheres. Moderate volume loss. Mild vascular calcifications are also again noted. VENTRICLES: No obstructive hydrocephalus. CALVARIUM: There are no acute calvarial fractures. PARANASAL SINUSES: Unremarkable as visualized. No significant inflammatory changes. Old bilateral nasal bone fracture deformities are again noted. Localize rightward deviation of the nasal septum. MASTOID AIR CELLS: Unremarkable as visualized. No inflammatory changes. OTHER FINDINGS: Orbits and contents grossly unremarkable. IMPRESSION: No acute intracranial hemorrhage. Moderate chronic white matter ischemic changes. Moderate volume loss.
--- NOTE | 2017-08-14 10:19 | CP.PCM.CON ---
History of Present Illness - History of Present Illness History of Present Illness: CC: GI consult for Jaundice 62 year old man daily alcohol drinker, admitted for repeated falling episodes and syncope. Patient found to be jaundiced. He denies nausea, vomiting, abdominal pain, seizures, liver disease, GI bleeding. Patient takes Advil PM 3 tabs every day for insomnia and for pain relief. Patient has not seen Dr Vasquez in several years and has not been compliant with prescribed medications. History and exam performed with patient's present, with patient's agreement. Review of Systems - Constitutional Constitutional: As Per HPI - EENT Eyes: absent: Change in Vision - Cardiovascular Cardiovascular: absent: Chest Pain - Respiratory Respiratory: absent: Dyspnea - Gastrointestinal Gastrointestinal: absent: Abdominal Pain - Genitourinary Genitourinary: absent: Change in Urinary Stream - Musculoskeletal Musculoskeletal: absent: Back Pain - Neurological Neurological: Syncope Past Patient History - Past Medical History & Family History Past Medical History?: Yes - Past Social History Smoking Status: Former Smoker Alcohol: > 2 Drinks/Day - CARDIAC Hx Hypercholesterolemia: Yes Hx Hypertension: Yes - PULMONARY Hx Respiratory Disorders: No - NEUROLOGICAL Hx Neurological Disorder: No - HEENT Hx HEENT Problems: No - RENAL Hx Chronic Kidney Disease: No - ENDOCRINE/METABOLIC Hx Endocrine Disorders: No - HEMATOLOGICAL/ONCOLOGICAL Hx Blood Disorders: No - INTEGUMENTARY Hx Dermatological Problems: No - MUSCULOSKELETAL/RHEUMATOLOGICAL Hx Falls: Yes Hx Gout: Yes - GASTROINTESTINAL Hx Gastrointestinal Disorders: No - GENITOURINARY/GYNECOLOGICAL Hx Genitourinary Disorders: No - PSYCHIATRIC Hx Substance Use: No - SURGICAL HISTORY Hx Herniorrhaphy: Yes - ANESTHESIA Hx Anesthesia: Yes Hx Anesthesia Reactions: No Meds Allergies/Adverse Reactions: Allergies Allergy/AdvReac Type Severity Reaction Status Date / Time No Known Allergies Allergy Unverified 08/13/17 11:47 - Medications Medications: Current Medications Amlodipine Besylate (Norvasc) 5 mg PO Q24H [facility] Last Admin: 08/13/17 22:26 Dose: 5 mg Aspirin (Ecotrin) 81 mg PO DAILY [facility] Enalapril Maleate (Vasotec) 10 mg PO DAILY [facility] Enoxaparin Sodium (Lovenox) 40 mg SC DAILY [facility] Folic Acid (Folic Acid) 1 mg PO DAILY [facility] Potassium Chloride (Potassium Chloride 20 Meq/100 Ml) 20 meq in 100 mls @ 50 mls/hr IVPB ONCE ONE Stop: 08/14/17 10:21 Multivitamins (Hexavitamin) 1 tab PO DAILY [facility] Last Admin: 08/13/17 22:26 Dose: 1 tab Pantoprazole Sodium (Protonix Inj) 40 mg IVP DAILY [facility] Thiamine HCl (Vitamin B1 Tab) 100 mg PO DAILY [facility] Last Admin: 08/13/17 22:25 Dose: 100 mg Physical Exam - Constitutional Appears: No Acute Distress - Head Exam Additional comments: Periorbital ecchymoses, forehead ecchymoses - Eye Exam Eye Exam: Scleral icterus - ENT Exam ENT Exam: Mucous Membranes Moist - Neck Exam Neck exam: Negative for: Thyromegaly - Respiratory Exam Respiratory Exam: Clear to Auscultation Bilateral - Cardiovascular Exam Cardiovascular Exam: REGULAR RHYTHM - GI/Abdominal Exam GI & Abdominal Exam: Organomegaly (Liver edge palpable 5FB below RSCM), Soft. absent: Tenderness - Rectal Exam Rectal Exam: Deferred - Extremities Exam Extremities exam: Positive for: normal inspection - Back Exam Back exam: NORMAL INSPECTION - Neurological Exam Neurological exam: Alert, Oriented x3 - Psychiatric Exam Psychiatric exam: Normal Affect, Normal Mood - Skin Skin Exam: Warm Results - Vital Signs Recent Vital Signs: Last Vital Signs Temp 97.7 F 08/14/17 07:35 Pulse 84 08/14/17 07:35 Resp 20 08/14/17 07:35 BP 134/78 08/14/17 07:35 Pulse Ox 97 08/14/17 07:35 - Labs Result Diagrams: 08/14/17 07:22 08/14/17 07:22 Labs: Laboratory Results - last 24 hr 08/13/17 08/13/17 08/13/17 12:33 12:33 12:33 WBC 12.2 H RBC 3.04 L Hgb 10.8 L D Hct 31.4 L MCV 103.2 H D MCH 35.4 H MCHC 34.3 RDW 16.7 H Plt Count 213 MPV 10.2 Neut % (Auto) 67.2 Lymph % (Auto) 25.7 [place] % (Auto) 6.3 Eos % (Auto) 0.1 Baso % (Auto) 0.7 Neut # (Auto) 8.2 H Lymph # (Auto) 3.1 [place] # (Auto) 0.8 Eos # (Auto) 0.0 Baso # (Auto) 0.1 Retic Count Haptoglobin PT 14.1 H INR 1.2 APTT 31 Sodium 132 Potassium 3.2 L Chloride 84 L Carbon Dioxide 25 Anion Gap 26 H BUN 12 Creatinine 0.7 L Est GFR ( Amer) > 60 Est GFR (Non-Af Amer) > 60 Random Glucose 171 H Hemoglobin A1c Calcium 8.4 L Phosphorus Magnesium 0.9 L* Iron TIBC % Saturation Total Bilirubin 8.6 H Direct Bilirubin AST 123 H ALT 35 Alkaline Phosphatase 391 H Lactate Dehydrogenase Total Creatine Kinase 64 CK-MB (Mass) 1.03 Troponin I < 0.0120 NT-Pro-B Natriuret Pep 109 Total Protein 8.4 H Albumin 3.8 Globulin 4.6 H Albumin/Globulin Ratio 0.8 L Triglycerides Cholesterol LDL Cholesterol Direct HDL Cholesterol Vitamin B12 25-OH Vitamin D Total Folate Free T4 TSH 3rd Generation Urine Color Urine Clarity Urine pH Ur Specific [place] Urine Protein Urine Glucose (UA) Urine Ketones Urine Blood Urine Nitrate Urine Bilirubin Urine Urobilinogen Ur Leukocyte Esterase Urine WBC (Auto) Urine RBC (Auto) Ur Squamous Epith Cells Hyaline Casts Urine Opiates Screen Urine Methadone Screen Ur Barbiturates Screen Ur Phencyclidine Scrn Ur Amphetamines Screen U Benzodiazepines Scrn U Oth Cocaine Metabols U Cannabinoids Screen Alcohol, Quantitative 12 H Hepatitis A IgM Ab Hep Bs Antigen Hep Bs Antibody Hep B Core IgM Ab Hepatitis C Antibody HIV 1&2 Antibody Screen 08/13/17 08/13/17 08/13/17 18:49 18:49 18:49 WBC RBC Hgb Hct MCV MCH MCHC RDW Plt Count MPV Neut % (Auto) Lymph % (Auto) [place] % (Auto) Eos % (Auto) Baso % (Auto) Neut # (Auto) Lymph # (Auto) [place] # (Auto) Eos # (Auto) Baso # (Auto) Retic Count Haptoglobin PT INR APTT Sodium Potassium Chloride Carbon Dioxide Anion Gap BUN Creatinine Est GFR ( Amer) Est GFR (Non-Af Amer) Random Glucose Hemoglobin A1c 4.9 Calcium Phosphorus Magnesium Iron TIBC % Saturation Total Bilirubin Direct Bilirubin 6.7 H AST ALT Alkaline Phosphatase Lactate Dehydrogenase Total Creatine Kinase CK-MB (Mass) Troponin I < 0.0120 NT-Pro-B Natriuret Pep Total Protein Albumin Globulin Albumin/Globulin Ratio Triglycerides Cholesterol LDL Cholesterol Direct HDL Cholesterol Vitamin B12 25-OH Vitamin D Total Folate Free T4 TSH 3rd Generation Urine Color Urine Clarity Urine pH Ur Specific [place] Urine Protein Urine Glucose (UA) Urine Ketones Urine Blood Urine Nitrate Urine Bilirubin Urine Urobilinogen Ur Leukocyte Esterase Urine WBC (Auto) Urine RBC (Auto) Ur Squamous Epith Cells Hyaline Casts Urine Opiates Screen Urine Methadone Screen Ur Barbiturates Screen Ur Phencyclidine Scrn Ur Amphetamines Screen U Benzodiazepines Scrn U Oth Cocaine Metabols U Cannabinoids Screen Alcohol, Quantitative Hepatitis A IgM Ab Hep Bs Antigen Hep Bs Antibody Hep B Core IgM Ab Hepatitis C Antibody HIV 1&2 Antibody Screen 08/13/17 08/13/17 08/13/17 18:49 21:30 21:30 WBC RBC Hgb Hct MCV MCH MCHC RDW Plt Count MPV Neut % (Auto) Lymph % (Auto) [place] % (Auto) Eos % (Auto) Baso % (Auto) Neut # (Auto) Lymph # (Auto) [place] # (Auto) Eos # (Auto) Baso # (Auto) Retic Count Haptoglobin PT INR APTT Sodium Potassium Chloride Carbon Dioxide Anion Gap BUN Creatinine Est GFR ( Amer) Est GFR (Non-Af Amer) Random Glucose Hemoglobin A1c Calcium Phosphorus Magnesium Iron 167 TIBC 220 L % Saturation 76 H Total Bilirubin Direct Bilirubin AST ALT Alkaline Phosphatase Lactate Dehydrogenase Total Creatine Kinase CK-MB (Mass) Troponin I NT-Pro-B Natriuret Pep Total Protein Albumin Globulin Albumin/Globulin Ratio Triglycerides Cholesterol LDL Cholesterol Direct HDL Cholesterol Vitamin B12 25-OH Vitamin D Total Folate Free T4 TSH 3rd Generation Urine Color [place] Urine Clarity Hazy Urine pH 5.0 Ur Specific [place] 1.025 Urine Protein 1+ H Urine Glucose (UA) Normal Urine Ketones 1+ H Urine Blood Negative Urine Nitrate Negative Urine Bilirubin 2+ H Urine Urobilinogen 4.0 Ur Leukocyte Esterase Neg Urine WBC (Auto) 4 Urine RBC (Auto) 1 Ur Squamous Epith Cells < 1 Hyaline Casts 3-5 H Urine Opiates Screen Negative Urine Methadone Screen Negative Ur Barbiturates Screen Negative Ur Phencyclidine Scrn Negative Ur Amphetamines Screen Negative U Benzodiazepines Scrn Negative U Oth Cocaine Metabols Negative U Cannabinoids Screen Positive H Alcohol, Quantitative Hepatitis A IgM Ab Hep Bs Antigen Hep Bs Antibody Hep B Core IgM Ab Hepatitis C Antibody HIV 1&2 Antibody Screen 08/13/17 08/14/17 08/14/17 22:50 01:22 07:22 WBC 6.6 RBC 2.60 L Hgb 9.5 L Hct 26.3 L MCV 101.1 H D MCH 36.4 H MCHC 36.0 RDW 16.5 H Plt Count 162 MPV 9.3 Neut % (Auto) 74.0 Lymph % (Auto) 17.8 L [place] % (Auto) 7.3 Eos % (Auto) 0.5 Baso % (Auto) 0.4 Neut # (Auto) 4.9 Lymph # (Auto) 1.2 [place] # (Auto) 0.5 Eos # (Auto) 0.0 Baso # (Auto) 0.0 Retic Count 1.4 Haptoglobin PT INR APTT Sodium 131 L Potassium 3.5 L Chloride 86 L Carbon Dioxide 30 Anion Gap 20 BUN 11 Creatinine 0.6 L Est GFR ( Amer) > 60 Est GFR (Non-Af Amer) > 60 Random Glucose 138 H Hemoglobin A1c Calcium 8.1 L Phosphorus Magnesium 1.3 L Iron TIBC % Saturation Total Bilirubin Direct Bilirubin AST ALT Alkaline Phosphatase Lactate Dehydrogenase Total Creatine Kinase 59 CK-MB (Mass) 0.54 Troponin I < 0.0120 NT-Pro-B Natriuret Pep Total Protein Albumin Globulin Albumin/Globulin Ratio Triglycerides Cholesterol LDL Cholesterol Direct HDL Cholesterol Vitamin B12 25-OH Vitamin D Total Folate Free T4 TSH 3rd Generation Urine Color Urine Clarity Urine pH Ur Specific [place] Urine Protein Urine Glucose (UA) Urine Ketones Urine Blood Urine Nitrate Urine Bilirubin Urine Urobilinogen Ur Leukocyte Esterase Urine WBC (Auto) Urine RBC (Auto) Ur Squamous Epith Cells Hyaline Casts Urine Opiates Screen Urine Methadone Screen Ur Barbiturates Screen Ur Phencyclidine Scrn Ur Amphetamines Screen U Benzodiazepines Scrn U Oth Cocaine Metabols U Cannabinoids Screen Alcohol, Quantitative Hepatitis A IgM Ab Hep Bs Antigen Hep Bs Antibody Hep B Core IgM Ab Hepatitis C Antibody HIV 1&2 Antibody Screen 08/14/17 08/14/17 08/14/17 07:22 07:22 07:22 WBC RBC Hgb Hct MCV MCH MCHC RDW Plt Count MPV Neut % (Auto) Lymph % (Auto) [place] % (Auto) Eos % (Auto) Baso % (Auto) Neut # (Auto) Lymph # (Auto) [place] # (Auto) Eos # (Auto) Baso # (Auto) Retic Count Haptoglobin 102.9 PT INR APTT Sodium 132 Potassium 3.4 L Chloride 88 L Carbon Dioxide 29 Anion Gap 19 BUN 9 Creatinine 0.6 L Est GFR ( Amer) > 60 Est GFR (Non-Af Amer) > 60 Random Glucose 130 H Hemoglobin A1c Calcium 8.0 L Phosphorus 2.1 L Magnesium 1.6 Iron TIBC % Saturation 72 H Total Bilirubin 6.1 H Direct Bilirubin AST 102 H ALT 35 Alkaline Phosphatase 330 H Lactate Dehydrogenase 681 H Total Creatine Kinase 64 CK-MB (Mass) 0.61 Troponin I < 0.0120 NT-Pro-B Natriuret Pep Total Protein 7.2 Albumin 3.1 L Globulin 4.1 H Albumin/Globulin Ratio 0.8 L Triglycerides 142 Cholesterol 125 LDL Cholesterol Direct 44 HDL Cholesterol 21 L Vitamin B12 808 25-OH Vitamin D Total 43.3 Folate 2.9 Free T4 1.91 TSH 3rd Generation 3.51 Urine Color Urine Clarity Urine pH Ur Specific [place] Urine Protein Urine Glucose (UA) Urine Ketones Urine Blood Urine Nitrate Urine Bilirubin Urine Urobilinogen Ur Leukocyte Esterase Urine WBC (Auto) Urine RBC (Auto) Ur Squamous Epith Cells Hyaline Casts Urine Opiates Screen Urine Methadone Screen Ur Barbiturates Screen Ur Phencyclidine Scrn Ur Amphetamines Screen U Benzodiazepines Scrn U Oth Cocaine Metabols U Cannabinoids Screen Alcohol, Quantitative Hepatitis A IgM Ab Hep Bs Antigen Hep Bs Antibody Hep B Core IgM Ab Hepatitis C Antibody HIV 1&2 Antibody Screen 08/14/17 08/14/17 08/14/17 07:22 07:22 07:22 WBC RBC Hgb Hct MCV MCH MCHC RDW Plt Count MPV Neut % (Auto) Lymph % (Auto) [place] % (Auto) Eos % (Auto) Baso % (Auto) Neut # (Auto) Lymph # (Auto) [place] # (Auto) Eos # (Auto) Baso # (Auto) Retic Count Haptoglobin PT 13.6 H INR 1.2 APTT Sodium Potassium Chloride Carbon Dioxide Anion Gap BUN Creatinine Est GFR ( Amer) Est GFR (Non-Af Amer) Random Glucose Hemoglobin A1c Calcium Phosphorus Magnesium Iron TIBC % Saturation Total Bilirubin Direct Bilirubin AST ALT Alkaline Phosphatase Lactate Dehydrogenase Total Creatine Kinase CK-MB (Mass) Troponin I NT-Pro-B Natriuret Pep Total Protein Albumin Globulin Albumin/Globulin Ratio Triglycerides Cholesterol LDL Cholesterol Direct HDL Cholesterol Vitamin B12 25-OH Vitamin D Total Folate Free T4 TSH 3rd Generation Urine Color Urine Clarity Urine pH Ur Specific [place] Urine Protein Urine Glucose (UA) Urine Ketones Urine Blood Urine Nitrate Urine Bilirubin Urine Urobilinogen Ur Leukocyte Esterase Urine WBC (Auto) Urine RBC (Auto) Ur Squamous Epith Cells Hyaline Casts Urine Opiates Screen Urine Methadone Screen Ur Barbiturates Screen Ur Phencyclidine Scrn Ur Amphetamines Screen U Benzodiazepines Scrn U Oth Cocaine Metabols U Cannabinoids Screen Alcohol, Quantitative Hepatitis A IgM Ab Negative Hep Bs Antigen Negative Hep Bs Antibody Negative Hep B Core IgM Ab Negative Hepatitis C Antibody Negative HIV 1&2 Antibody Screen 08/14/17 07:22 WBC RBC Hgb Hct MCV MCH MCHC RDW Plt Count MPV Neut % (Auto) Lymph % (Auto) [place] % (Auto) Eos % (Auto) Baso % (Auto) Neut # (Auto) Lymph # (Auto) [place] # (Auto) Eos # (Auto) Baso # (Auto) Retic Count Haptoglobin PT INR APTT Sodium Potassium Chloride Carbon Dioxide Anion Gap BUN Creatinine Est GFR ( Amer) Est GFR (Non-Af Amer) Random Glucose Hemoglobin A1c Calcium Phosphorus Magnesium Iron TIBC % Saturation Total Bilirubin Direct Bilirubin AST ALT Alkaline Phosphatase Lactate Dehydrogenase Total Creatine Kinase CK-MB (Mass) Troponin I NT-Pro-B Natriuret Pep Total Protein Albumin Globulin Albumin/Globulin Ratio Triglycerides Cholesterol LDL Cholesterol Direct HDL Cholesterol Vitamin B12 25-OH Vitamin D Total Folate Free T4 TSH 3rd Generation Urine Color Urine Clarity Urine pH Ur Specific [place] Urine Protein Urine Glucose (UA) Urine Ketones Urine Blood Urine Nitrate Urine Bilirubin Urine Urobilinogen Ur Leukocyte Esterase Urine WBC (Auto) Urine RBC (Auto) Ur Squamous Epith Cells Hyaline Casts Urine Opiates Screen Urine Methadone Screen Ur Barbiturates Screen Ur Phencyclidine Scrn Ur Amphetamines Screen U Benzodiazepines Scrn U Oth Cocaine Metabols U Cannabinoids Screen Alcohol, Quantitative Hepatitis A IgM Ab Hep Bs Antigen Hep Bs Antibody Hep B Core IgM Ab Hepatitis C Antibody HIV 1&2 Antibody Screen Negative Assessment & Plan (1) Alcoholic hepatitis Assessment and Plan: Jaundice, hepatomegaly on exam Viral hepatitis profile normal. Rec: Alcoholic counselling. Supportive care. Prognosis of progressive liver disease if he continues to drink alcohol discussed with patient. Check abdominal sonogram Status: Acute (2) Syncope Assessment and Plan: managed by medical team and consultants. Will be getting cardiac stress test Status: Acute (3) Anemia due to folate deficiency Assessment and Plan: Folate deficient due to chronic alcoholism Folate replacement initiated Status: Acute
[2017-08-14] MEDS: Multiple Vitamins Tab PO SCH (10:23)
--- NOTE | 2017-08-14 10:58 | CT ---
PROCEDURE: CT Angiography of the neck and brain dated 07/17/2017 HISTORY: Syncope; evaluate for vertebrobasilar insufficiency COMPARISON: Comparison made with CT scan brain 08/13/2017 TECHNIQUE: Contiguous helical/transaxial images of the neck were obtained from the level of the skull-base to the superior mediastinum in the arteriographic phase of enhancement. Coronal and sagittal reformats or also generated. IV contrast dose: 100 cc Visipaque 320 Radiation Dose - DLP: mGy-cm This CT exam was performed using one or more of the following dose reduction techniques: Automated exposure control, adjustment of the mA and/or kV according to patient size, and/or use of iterative reconstruction technique. FINDINGS: The visualized portions of the aortic arch widely patent with minimal calcified atherosclerotic plaque changes. Additionally, there is mild atherosclerotic plaque seen along the origin of the left common carotid artery. There is fairly significant atherosclerotic plaque at the level of the left carotid bifurcation which results in fairly significant narrowing estimated approximately 75 %. Mild calcified plaque change right carotid bifurcation which does not appear to result in significant stenotic changes of the proximal internal carotid artery The distal internal carotid arteries including the petrous segments patent. Partially calcified atherosclerotic plaque on along both cavernous segments does result in moderate narrowing. There is some extension of atherosclerotic plaque into the supraclinoid segments as well. The visualized A1 and M1 segments are patent. The distal branches of the anterior middle cerebral arteries are symmetric in appearance. The mild asymmetry of the vertebral arteries left-sided which is larger and caliber/more dominant than the right. Basilar artery is patent. Both posterior cerebral arteries are also patent. The distal posterior cerebral arteries are less well seen though those portions that are visible appear symmetric as well. No evidence of large aneurysm nor vascular malformation. Multilevel mild multilevel degenerative spondylosis of the cervical spine Lung apices clear. IMPRESSION: Significant calcified atherosclerotic plaque change left carotid bifurcation which appears to result in approximately 75 % diameter stenosis. Carotid Doppler recommended for further evaluation. Calcified atherosclerotic plaque also noted along the cavernous carotid segments extending superiorly into the supraclinoid segments with moderate stenosis. No evidence of occlusion of the cerebral vasculature. No evidence of large aneurysm nor vascular malformation.
--- NOTE | 2017-08-14 15:07 | CP.PCM.CON ---
History of Present Illness - History of Present Illness History of Present Illness: Mr. Lee is a 62-year-old man with a past medical history of hypertension, alcoholism with jaudice and elevated total bilirubin, previous [place], who presented after multiple episodes of syncope associated with gait instability. CT of the head did not show any acute findings (hypodensity in bilateral cerebellum, chronic ischemic changes), but the CTA did show significant carotid artery stenosis on the left (about 75%) as well as intracranial atherosclerotic disease. However, the vertebrobasilar system was patent. When I saw the patient , he said he was feeling better today, but did complain of feeling unsteady when he walks. Review of Systems - Review of Systems All systems: reviewed and no additional remarkable complaints except Past Patient History - Past Medical History & Family History Past Medical History?: Yes - Past Social History Smoking Status: Former Smoker Alcohol: > 2 Drinks/Day - CARDIAC Hx Hypercholesterolemia: Yes Hx Hypertension: Yes - PULMONARY Hx Respiratory Disorders: No - NEUROLOGICAL Hx Neurological Disorder: No - HEENT Hx HEENT Problems: No - RENAL Hx Chronic Kidney Disease: No - ENDOCRINE/METABOLIC Hx Endocrine Disorders: No - HEMATOLOGICAL/ONCOLOGICAL Hx Blood Disorders: No - INTEGUMENTARY Hx Dermatological Problems: No - MUSCULOSKELETAL/RHEUMATOLOGICAL Hx Falls: Yes Hx Gout: Yes - GASTROINTESTINAL Hx Gastrointestinal Disorders: No - GENITOURINARY/GYNECOLOGICAL Hx Genitourinary Disorders: No - PSYCHIATRIC Hx Substance Use: No - SURGICAL HISTORY Hx Herniorrhaphy: Yes - ANESTHESIA Hx Anesthesia: Yes Hx Anesthesia Reactions: No Meds Allergies/Adverse Reactions: Allergies Allergy/AdvReac Type Severity Reaction Status Date / Time No Known Allergies Allergy Unverified 08/13/17 11:47 - Medications Medications: Current Medications Amlodipine Besylate (Norvasc) 5 mg PO Q24H [facility] Last Admin: 08/13/17 22:26 Dose: 5 mg Aspirin (Ecotrin) 81 mg PO DAILY [facility] Last Admin: 08/14/17 10:23 Dose: 81 mg Enalapril Maleate (Vasotec) 10 mg PO DAILY [facility] Last Admin: 08/14/17 10:23 Dose: 10 mg Folic Acid (Folic Acid) 1 mg PO DAILY [facility] Heparin Sodium (Porcine) (Heparin) 5,000 units SC Q12 [facility] Multivitamins (Hexavitamin) 1 tab PO DAILY [facility] Last Admin: 08/14/17 10:23 Dose: 1 tab Pantoprazole Sodium (Protonix Inj) 40 mg IVP DAILY [facility] Last Admin: 08/14/17 10:24 Dose: 40 mg Thiamine HCl (Vitamin B1 Tab) 100 mg PO DAILY [facility] Last Admin: 08/14/17 10:23 Dose: 100 mg Physical Exam - Constitutional Additional comments: Jaundiced - Head Exam Head Exam: ATRAUMATIC, NORMAL INSPECTION, NORMOCEPHALIC - Eye Exam Eye Exam: EOMI, PERRL, Scleral icterus - Neurological Exam Neurological exam: Abnormal Gait, Alert, CN II-XII Intact, Oriented x3, Reflexes Normal Additional comments: Strength is full and symmetrical throughout, but he is ataxic to FTN and HTS. Plantar responses are normal. Gait is wide based and ataxic. Results - Vital Signs Recent Vital Signs: Last Vital Signs Temp 97.7 F 08/14/17 07:35 Pulse 83 08/14/17 12:21 Resp 20 08/14/17 07:35 BP 134/78 08/14/17 10:23 Pulse Ox 97 08/14/17 07:35 - Labs Result Diagrams: 08/14/17 07:22 08/14/17 07:22 Labs: Laboratory Results - last 24 hr 08/13/17 08/13/17 08/13/17 12:33 18:49 18:49 WBC RBC Hgb Hct MCV MCH MCHC RDW Plt Count MPV Neut % (Auto) Lymph % (Auto) [place] % (Auto) Eos % (Auto) Baso % (Auto) Neut # (Auto) Lymph # (Auto) [place] # (Auto) Eos # (Auto) Baso # (Auto) Retic Count Haptoglobin PT INR Sodium 132 Potassium 3.2 L Chloride 84 L Carbon Dioxide 25 Anion Gap 26 H BUN 12 Creatinine 0.7 L Est GFR ( Amer) > 60 Est GFR (Non-Af Amer) > 60 Random Glucose 171 H Hemoglobin A1c 4.9 Calcium 8.4 L Phosphorus Magnesium 0.9 L* Iron TIBC % Saturation Ferritin Total Bilirubin 8.6 H Direct Bilirubin 6.7 H AST 123 H ALT 35 Alkaline Phosphatase 391 H Lactate Dehydrogenase Total Creatine Kinase 64 CK-MB (Mass) 1.03 Troponin I < 0.0120 NT-Pro-B Natriuret Pep 109 Total Protein 8.4 H Albumin 3.8 Globulin 4.6 H Albumin/Globulin Ratio 0.8 L Triglycerides Cholesterol LDL Cholesterol Direct HDL Cholesterol Vitamin B12 25-OH Vitamin D Total Folate Free T4 TSH 3rd Generation Urine Color Urine Clarity Urine pH Ur Specific [place] Urine Protein Urine Glucose (UA) Urine Ketones Urine Blood Urine Nitrate Urine Bilirubin Urine Urobilinogen Ur Leukocyte Esterase Urine WBC (Auto) Urine RBC (Auto) Ur Squamous Epith Cells Hyaline Casts Urine Opiates Screen Urine Methadone Screen Ur Barbiturates Screen Ur Phencyclidine Scrn Ur Amphetamines Screen U Benzodiazepines Scrn U Oth Cocaine Metabols U Cannabinoids Screen Alcohol, Quantitative 12 H Hepatitis A IgM Ab Hep Bs Antigen Hep Bs Antibody Hep B Core IgM Ab Hepatitis C Antibody HIV 1&2 Antibody Screen 08/13/17 08/13/17 08/13/17 18:49 18:49 21:30 WBC RBC Hgb Hct MCV MCH MCHC RDW Plt Count MPV Neut % (Auto) Lymph % (Auto) [place] % (Auto) Eos % (Auto) Baso % (Auto) Neut # (Auto) Lymph # (Auto) [place] # (Auto) Eos # (Auto) Baso # (Auto) Retic Count Haptoglobin PT INR Sodium Potassium Chloride Carbon Dioxide Anion Gap BUN Creatinine Est GFR ( Amer) Est GFR (Non-Af Amer) Random Glucose Hemoglobin A1c Calcium Phosphorus Magnesium Iron 167 TIBC 220 L % Saturation 76 H Ferritin Total Bilirubin Direct Bilirubin AST ALT Alkaline Phosphatase Lactate Dehydrogenase Total Creatine Kinase CK-MB (Mass) Troponin I < 0.0120 NT-Pro-B Natriuret Pep Total Protein Albumin Globulin Albumin/Globulin Ratio Triglycerides Cholesterol LDL Cholesterol Direct HDL Cholesterol Vitamin B12 25-OH Vitamin D Total Folate Free T4 TSH 3rd Generation Urine Color [place] Urine Clarity Hazy Urine pH 5.0 Ur Specific [place] 1.025 Urine Protein 1+ H Urine Glucose (UA) Normal Urine Ketones 1+ H Urine Blood Negative Urine Nitrate Negative Urine Bilirubin 2+ H Urine Urobilinogen 4.0 Ur Leukocyte Esterase Neg Urine WBC (Auto) 4 Urine RBC (Auto) 1 Ur Squamous Epith Cells < 1 Hyaline Casts 3-5 H Urine Opiates Screen Urine Methadone Screen Ur Barbiturates Screen Ur Phencyclidine Scrn Ur Amphetamines Screen U Benzodiazepines Scrn U Oth Cocaine Metabols U Cannabinoids Screen Alcohol, Quantitative Hepatitis A IgM Ab Hep Bs Antigen Hep Bs Antibody Hep B Core IgM Ab Hepatitis C Antibody HIV 1&2 Antibody Screen 0308/13/17 08/14/17 21:30 22:50 01:22 WBC RBC Hgb Hct MCV MCH MCHC RDW Plt Count MPV Neut % (Auto) Lymph % (Auto) [place] % (Auto) Eos % (Auto) Baso % (Auto) Neut # (Auto) Lymph # (Auto) [place] # (Auto) Eos # (Auto) Baso # (Auto) Retic Count Haptoglobin PT INR Sodium 131 L Potassium 3.5 L Chloride 86 L Carbon Dioxide 30 Anion Gap 20 BUN 11 Creatinine 0.6 L Est GFR ( Amer) > 60 Est GFR (Non-Af Amer) > 60 Random Glucose 138 H Hemoglobin A1c Calcium 8.1 L Phosphorus Magnesium 1.3 L Iron TIBC % Saturation Ferritin Total Bilirubin Direct Bilirubin AST ALT Alkaline Phosphatase Lactate Dehydrogenase Total Creatine Kinase 59 CK-MB (Mass) 0.54 Troponin I < 0.0120 NT-Pro-B Natriuret Pep Total Protein Albumin Globulin Albumin/Globulin Ratio Triglycerides Cholesterol LDL Cholesterol Direct HDL Cholesterol Vitamin B12 25-OH Vitamin D Total Folate Free T4 TSH 3rd Generation Urine Color Urine Clarity Urine pH Ur Specific [place] Urine Protein Urine Glucose (UA) Urine Ketones Urine Blood Urine Nitrate Urine Bilirubin Urine Urobilinogen Ur Leukocyte Esterase Urine WBC (Auto) Urine RBC (Auto) Ur Squamous Epith Cells Hyaline Casts Urine Opiates Screen Negative Urine Methadone Screen Negative Ur Barbiturates Screen Negative Ur Phencyclidine Scrn Negative Ur Amphetamines Screen Negative U Benzodiazepines Scrn Negative U Oth Cocaine Metabols Negative U Cannabinoids Screen Positive H Alcohol, Quantitative Hepatitis A IgM Ab Hep Bs Antigen Hep Bs Antibody Hep B Core IgM Ab Hepatitis C Antibody HIV 1&2 Antibody Screen 08/14/17 08/14/17 08/14/17 07:22 07:22 07:22 WBC 6.6 RBC 2.60 L Hgb 9.5 L Hct 26.3 L MCV 101.1 H D MCH 36.4 H MCHC 36.0 RDW 16.5 H Plt Count 162 MPV 9.3 Neut % (Auto) 74.0 Lymph % (Auto) 17.8 L [place] % (Auto) 7.3 Eos % (Auto) 0.5 Baso % (Auto) 0.4 Neut # (Auto) 4.9 Lymph # (Auto) 1.2 [place] # (Auto) 0.5 Eos # (Auto) 0.0 Baso # (Auto) 0.0 Retic Count 1.4 Haptoglobin PT INR Sodium 132 Potassium 3.4 L Chloride 88 L Carbon Dioxide 29 Anion Gap 19 BUN 9 Creatinine 0.6 L Est GFR ( Amer) > 60 Est GFR (Non-Af Amer) > 60 Random Glucose 130 H Hemoglobin A1c Calcium 8.0 L Phosphorus 2.1 L Magnesium 1.6 Iron TIBC % Saturation 72 H Ferritin 3360.0 Total Bilirubin 6.1 H Direct Bilirubin AST 102 H ALT 35 Alkaline Phosphatase 330 H Lactate Dehydrogenase 681 H Total Creatine Kinase 64 CK-MB (Mass) 0.61 Troponin I < 0.0120 NT-Pro-B Natriuret Pep Total Protein 7.2 Albumin 3.1 L Globulin 4.1 H Albumin/Globulin Ratio 0.8 L Triglycerides 142 Cholesterol 125 LDL Cholesterol Direct 44 HDL Cholesterol 21 L Vitamin B12 808 25-OH Vitamin D Total 43.3 Folate 2.9 Free T4 TSH 3rd Generation 3.51 Urine Color Urine Clarity Urine pH Ur Specific [place] Urine Protein Urine Glucose (UA) Urine Ketones Urine Blood Urine Nitrate Urine Bilirubin Urine Urobilinogen Ur Leukocyte Esterase Urine WBC (Auto) Urine RBC (Auto) Ur Squamous Epith Cells Hyaline Casts Urine Opiates Screen Urine Methadone Screen Ur Barbiturates Screen Ur Phencyclidine Scrn Ur Amphetamines Screen U Benzodiazepines Scrn U Oth Cocaine Metabols U Cannabinoids Screen Alcohol, Quantitative Hepatitis A IgM Ab Hep Bs Antigen Hep Bs Antibody Hep B Core IgM Ab Hepatitis C Antibody HIV 1&2 Antibody Screen 08/14/17 08/14/17 08/14/17 07:22 07:22 07:22 WBC RBC Hgb Hct MCV MCH MCHC RDW Plt Count MPV Neut % (Auto) Lymph % (Auto) [place] % (Auto) Eos % (Auto) Baso % (Auto) Neut # (Auto) Lymph # (Auto) [place] # (Auto) Eos # (Auto) Baso # (Auto) Retic Count Haptoglobin 102.9 PT INR Sodium Potassium Chloride Carbon Dioxide Anion Gap BUN Creatinine Est GFR ( Amer) Est GFR (Non-Af Amer) Random Glucose Hemoglobin A1c Calcium Phosphorus Magnesium Iron TIBC % Saturation Ferritin Total Bilirubin Direct Bilirubin AST ALT Alkaline Phosphatase Lactate Dehydrogenase Total Creatine Kinase CK-MB (Mass) Troponin I NT-Pro-B Natriuret Pep Total Protein Albumin Globulin Albumin/Globulin Ratio Triglycerides Cholesterol LDL Cholesterol Direct HDL Cholesterol Vitamin B12 25-OH Vitamin D Total Folate Free T4 1.91 TSH 3rd Generation Urine Color Urine Clarity Urine pH Ur Specific [place] Urine Protein Urine Glucose (UA) Urine Ketones Urine Blood Urine Nitrate Urine Bilirubin Urine Urobilinogen Ur Leukocyte Esterase Urine WBC (Auto) Urine RBC (Auto) Ur Squamous Epith Cells Hyaline Casts Urine Opiates Screen Urine Methadone Screen Ur Barbiturates Screen Ur Phencyclidine Scrn Ur Amphetamines Screen U Benzodiazepines Scrn U Oth Cocaine Metabols U Cannabinoids Screen Alcohol, Quantitative Hepatitis A IgM Ab Negative Hep Bs Antigen Negative Hep Bs Antibody Negative Hep B Core IgM Ab Negative Hepatitis C Antibody Negative HIV 1&2 Antibody Screen 08/14/17 08/14/17 07:22 07:22 WBC RBC Hgb Hct MCV MCH MCHC RDW Plt Count MPV Neut % (Auto) Lymph % (Auto) [place] % (Auto) Eos % (Auto) Baso % (Auto) Neut # (Auto) Lymph # (Auto) [place] # (Auto) Eos # (Auto) Baso # (Auto) Retic Count Haptoglobin PT 13.6 H INR 1.2 Sodium Potassium Chloride Carbon Dioxide Anion Gap BUN Creatinine Est GFR ( Amer) Est GFR (Non-Af Amer) Random Glucose Hemoglobin A1c Calcium Phosphorus Magnesium Iron TIBC % Saturation Ferritin Total Bilirubin Direct Bilirubin AST ALT Alkaline Phosphatase Lactate Dehydrogenase Total Creatine Kinase CK-MB (Mass) Troponin I NT-Pro-B Natriuret Pep Total Protein Albumin Globulin Albumin/Globulin Ratio Triglycerides Cholesterol LDL Cholesterol Direct HDL Cholesterol Vitamin B12 25-OH Vitamin D Total Folate Free T4 TSH 3rd Generation Urine Color Urine Clarity Urine pH Ur Specific [place] Urine Protein Urine Glucose (UA) Urine Ketones Urine Blood Urine Nitrate Urine Bilirubin Urine Urobilinogen Ur Leukocyte Esterase Urine WBC (Auto) Urine RBC (Auto) Ur Squamous Epith Cells Hyaline Casts Urine Opiates Screen Urine Methadone Screen Ur Barbiturates Screen Ur Phencyclidine Scrn Ur Amphetamines Screen U Benzodiazepines Scrn U Oth Cocaine Metabols U Cannabinoids Screen Alcohol, Quantitative Hepatitis A IgM Ab Hep Bs Antigen Hep Bs Antibody Hep B Core IgM Ab Hepatitis C Antibody HIV 1&2 Antibody Screen Negative Assessment & Plan (1) Syncope Assessment and Plan: This is most likely neurocardiogenic and multifactorial due to autonomic nervous system toxicity due to chronic alcohol use, metabolic derangements due to hepatic disease, cardiac disease and carotid and intracranial stenosis. I recommend starting the patient on aspirin 81 mg daily, prolonged cardiac monitoring with loop device, and follow up with outpatient diagnostic cerebral angiogram (consult Dr. Daniel Murguia). Continue fluids with NS at 100 mL/hr. [place] on alcohol cessation. Thank you for this consultation. Status: Acute Priority: High
--- NOTE | 2017-08-14 16:04 | US ---
HISTORY: Elevated LFTs and bilirubin. COMPARISON: No prior study available for comparison. The the the TECHNIQUE: Sonographic evaluation of the abdomen. FINDINGS: LIVER: Liver is enlarged measuring nearly 23 cm in CC dimension. Liver exhibits increased smooth contour and increased echotexture suggesting fatty infiltration however other infiltrative hepatocellular disease process not excluded. . Note made of what appears represent some fatty sparing right lobe of the liver No obvious hepatic mass or collection seen on images presented. Ductal intrahepatic biliary ductal dilatation. GALLBLADDER: Intraluminal gallbladder sludge. No definitive echogenic shadowing calculi identified. No evidence of pericholecystic fluid collections or sonographic Joaquin sign. COMMON BILE DUCT: Measures 5.8 mm. No stones. No dilatation. PANCREAS: Pancreas is not visualized due to body habitus and bowel gas RIGHT KIDNEY: Right kidney measures approximately 9.7 x 5.1 x 5.2cm. Normal echogenicity. No calculus, mass, or hydronephrosis. LEFT KIDNEY: Left kidney measures approximate 11.8 x 6.7 x 5.3cm. Normal echogenicity. No calculus, mass, or hydronephrosis. SPLEEN: Spleen appears mildly enlarged measuring over 13 cm in greatest dimension. AORTA: Poorly visualized IVC: Poorly visualized OTHER FINDINGS: None. IMPRESSION: Mild hepatosplenomegaly with prominent common bile duct. Intraluminal gallbladder sludge however no stones are identified. The liver exhibits increased echotexture consistent with fatty infiltration however other infiltrative hepatocellular disease process not excluded. Clinical correlation recommended.
--- NOTE | 2017-08-15 08:03 | CP.PCM.PN ---
<Nette Cast - Last Filed: 08/15/17 09:27> Subjective - Date & Time of Evaluation Date of Evaluation: 08/15/17 Time of Evaluation: 09:23 - Subjective Subjective: Progress Note Patient seen and examined at bedside. Patient did not sleep well overnight. Patient states his says he's having difficulty walking but he finds it hard to walk because he has glasses. Patient denies feeling depressed and states that he doesn't feel like going out to see friends and does not feel the need to have many hobbies outside. Patient states he goes outside to get the newspaper and spends time at the pub to meet his friends at the pub but doesn't make/meet friends outside of the pub. Patient states he goes home afterwards and stays home for the rest of the day. He states his relationship with his has gotten better after he retired because he has spend more time with her. Per yesterday, patient stays in his den upstairs and doesn't really interact with people other than to go downstairs for food or bathroom. Patient denies headache, fever, chills, nausea, vomiting, tremors, diarrhea, abdominal pain. Objective - Vital Signs/Intake and Output Vital Signs (last 24 hours): Temp Pulse Resp BP Pulse Ox 98.0 F 110 H 20 137/74 97 08/14/17 23:40 08/15/17 07:30 08/14/17 23:40 08/14/17 23:40 08/14/17 23:40 - Medications Medications: Current Medications Amlodipine Besylate (Norvasc) 5 mg PO Q24H [facility] Last Admin: 08/14/17 18:04 Dose: 5 mg Aspirin (Ecotrin) 81 mg PO DAILY [facility] Last Admin: 08/14/17 10:23 Dose: 81 mg Enalapril Maleate (Vasotec) 10 mg PO DAILY [facility] Last Admin: 08/14/17 10:23 Dose: 10 mg Folic Acid (Folic Acid) 1 mg PO DAILY [facility] Last Admin: 08/14/17 18:04 Dose: 1 mg Heparin Sodium (Porcine) (Heparin) 5,000 units SC Q12 [facility] Last Admin: 08/14/17 21:11 Dose: 5,000 units Multivitamins (Hexavitamin) 1 tab PO DAILY [facility] Last Admin: 08/14/17 10:23 Dose: 1 tab Pantoprazole Sodium (Protonix Inj) 40 mg IVP DAILY [facility] Last Admin: 08/14/17 10:24 Dose: 40 mg Thiamine HCl (Vitamin B1 Tab) 100 mg PO DAILY [facility] Last Admin: 08/14/17 10:23 Dose: 100 mg - Labs Labs: 08/14/17 07:22 08/14/17 07:22 PT 13.6 SECONDS (9.7-12.2) H 08/14/17 07:22 INR 1.2 08/14/17 07:22 APTT 31 SECONDS (21-34) 08/13/17 12:33 - Additional Findings Additional findings: - Constitutional Appears: Well, No Acute Distress - Head Exam Head Exam: absent: ATRAUMATIC, NORMAL INSPECTION Additional comments: Ecchymoses left orbital area; - Eye Exam Eye Exam: Periorbital tenderness, Scleral icterus Pupil Exam: PERRL (sluggish to light stimulation). absent: Unequal - ENT Exam ENT Exam: Mucous Membranes Dry, Normal External Ear Exam. absent: Mucous Membranes Moist, Normal Exam - Neck Exam Additional comments: no jvd; no bruit auscultated - Respiratory Exam Respiratory Exam: Wheezes - Cardiovascular Exam Cardiovascular Exam: Tachycardia, +S1, +S2, +S4, Systolic Murmur (loud) - GI/Abdominal Exam GI & Abdominal Exam: Hernia (umbilical hernia repair scar), Normal Bowel Sounds , Organomegaly (liver mildly enlarged), Soft. absent: Diminished Bowel Sounds, Guarding, Rebound, Rigid, Tenderness Additional comments: negative downing's sign. rovsing's sign - Extremities Exam Extremities exam: Positive for: normal inspection. Negative for: pedal edema Additional comments: tattoo on left forearm - Back Exam Back exam: absent: CVA tenderness (L), CVA tenderness (R) - Neurological Exam Neurological exam: Alert, CN II-XII Intact, Oriented x3 Assessment and Plan - Assessment and Plan (Free Text) Assessment: Recurrent Syncope Admit to tele Head CT (08/13/2017): No acute intracranial abnormality. Mild chronic microangiopathic changes and moderate age-related global parenchymal volume loss. (see full report) Orbit CT (08/13/2017): No acute orbital fracture. No evidence of acute globe injury. EKG: Rate 96 bpm, NSR, Q waves in inferior leads, No ST/T wave changes Troponin negative x 1; f/u 2 additional BNP 109 CXR (08/13/17): NAD Neuro Consult: Dr. Ball 08/13 CTA Head/Neck: Left Carotid bifurcation 75% stenosis, patent vertebrobrasilar system - EEG planned for 08/[address] Ball: CT of the head did not show any acute findings (hypodensity in bilateral cerebellum, chronic ischemic changes), but the CTA showed significant carotid artery stenosis on the left (about 75%) as well as intracranial atherosclerotic disease. However, the vertebrobasilar system was patent. 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 Neuro Recommendations: aspirin 81 mg daily, prolonged cardiac monitoring with loop device, and follow up with outpatient diagnostic cerebral angiogram ( consult Dr. Daniel Murguia). Continue fluids with NS at 100 mL/hr. Cardio Consult: Dr. Washburn - Mycocardial perfusion stress planned for 08/16 f/u ECHO, Carotid US 08/13 CT head: age-related global parenchymal volume lose, mild chronic microangiopathic changes. no acute intracranial abnormality 08/14 CT Head: no changes from prior CT head UA: bilirubin, ketones, protein, hyaline casts, no leukocyte esterase, no nitrates RPR nonreactive Hepatitis panel Negative Hep C antibody negative HIV negative UDS: positive for cannibis Patient had elevated blood alcohol level on admission Free T4 1.91 TSH 3.51 Abnormal EKG - pathologic Q waves EKG shows ischemic changes in inferior leads - f/u additional EKGs/troponins Cardio Consult: Dr. Washburn: - Mycocardial perfusion stress, - monitor on telemetry Elevated Bilirubin and LFTs Pt noticed darker urine 3 weeks ago, noticed scleral icterus day of admission T Bili downtrending AST downtrending GI consult: Dr. Zaragoza CAD ASA 81mg PO QD Macrocytic Anemia Pt with long history of alcohol abuse TIBC 167 TIBC 220 % saturation 76 Ferritin 3360 Vit D 43.3 Folate 2.9 Vit B12 808 reticulocyte count 1.4, index 0.58 (hypoproliferation of reticulocytes) haptoglobin 102 Hx of EtOH abuse EtOH: 12 on admission MV/Thiamine/Folic Acid PO daily monitor on Telemetry hyperglycemia on admission B Accuchecks Hgb A1C 4.3 Electrolyte abnormality, repleted Will be getting cardiac stress test Tobacco cessation and alcohol cessation Leukocytosis Patient afebrile Etiology: unclear Monitor Prophylaxis Protonix 40mg PO Daily ASA 81 mg PO QD Heparin 5000 u Sc Q12H HOLD lovenox 40mg SC due to hematome SCDs Seizure precautions Aspiration precautions PT/O eval and treat <Jocy Fuller V - Last Filed: 08/15/17 11:04> Objective - Vital Signs/Intake and Output Vital Signs (last 24 hours): Temp Pulse Resp BP Pulse Ox 97.5 F L 110 H 20 150/70 95 08/15/17 07:20 08/15/17 07:30 08/15/17 07:20 08/15/17 09:08 08/15/17 07:20 - Medications Medications: Current Medications Amlodipine Besylate (Norvasc) 5 mg PO Q24H [facility] Last Admin: 08/14/17 18:04 Dose: 5 mg Aspirin (Ecotrin) 81 mg PO DAILY [facility] Last Admin: 08/15/17 09:08 Dose: 81 mg Enalapril Maleate (Vasotec) 10 mg PO DAILY [facility] Last Admin: 08/15/17 09:08 Dose: 10 mg Folic Acid (Folic Acid) 1 mg PO DAILY [facility] Last Admin: 08/15/17 09:08 Dose: 1 mg Heparin Sodium (Porcine) (Heparin) 5,000 units SC Q12 [facility] Last Admin: 08/15/17 09:07 Dose: 5,000 units Magnesium Sulfate/Dextrose (Magnesium Sulfate 1 Gm/100 Ml D5w) 1 gm in 100 mls @ 300 mls/hr IVPB Q30M [facility] Stop: 08/15/17 11:34 Multivitamins (Hexavitamin) 1 tab PO DAILY [facility] Last Admin: 08/15/17 09:08 Dose: 1 tab Pantoprazole Sodium (Protonix Inj) 40 mg IVP DAILY [facility] Last Admin: 08/15/17 09:07 Dose: 40 mg Potassium Phos/Sodium Phos (Neutra-Phos) 1 pkt PO AC [facility] Stop: 08/16/17 11:31 Thiamine HCl (Vitamin B1 Tab) 100 mg PO DAILY [facility] Last Admin: 08/15/17 09:08 Dose: 100 mg - Labs Labs: 08/15/17 08:25 08/15/17 08:25 PT 13.6 SECONDS (9.7-12.2) H 08/14/17 07:22 INR 1.2 08/14/17 07:22 APTT 31 SECONDS (21-34) 08/13/17 12:33 Attending/Attestation - Attestation I have personally seen and examined this patient.: Yes I have fully participated in the care of the patient.: Yes I have reviewed all pertinent clinical information, including history, physical exam and plan: Yes Notes (Text): Patient seen, examined and case discussed with day-time resident. Patient seen at bedside. Patient reports he has not slept three days. Patient is tolerating liquid diet. Patient is pending myocardial stress test in AM on 08/16/17. Patient is pending neurointerventional assessment for cartoid stenosis. Discussed abdominal US results with the patient and at bedside. Ordered for pastoral care referral. Assessment/Plan 1) Recurrent Syncope * Admit to telemetry * Etiologies to exclude: arrhythmia, ischemic heart disease, alcoholism, seizure , electrolyte imbalance * Cardiology (Dr. Washburn) [facility]-->help appreciated * Mycocardial perfusion stress for Wednesday. August 16 2017 * Echocardiogram-->pending read * Neurology (Dr. Ball) [facility]--> help appreciated * CTA head/neck (08/14): significant calcified atherosclerotic plaque change in left cartoid bifurcation which appears to result in approximaltely 75% diameter stenosis. calcified atherosclerotic plaque also noted along the cavernous carotid segments extending superiorly into the supraclinoid segments with moderate stenosis. No evidence of occlusion of the cerebral vasculature. No evidence of large aneurysm nor vascular malformation * f/u EEG (will not be performed until 08/16/17) * f/u neurology * Head CT (08/13/2017): No acute intracranial abnormality. Mild chronic microangiopathic changes and moderate age-related global parenchymal volume loss. (see full report) * Head CT (08/14/2017): no change from prior * Orbit CT (08/13/2017): No acute orbital fracture. No evidence of acute globe injury. * Fall precautions * EKG: Rate 96 bpm, NSR, Q waves in inferior leads, No ST/T wave changes * Repeat EKG and ROMIs, Q6Hs * BNP 109 * CXR (08/13/17): No active disease * Urine drug screen: positive for cannabis * Elevated alcohol * TSH: 3.51, Free T4: 1.91 2) Abnormal EKG - pathologic Q waves * Cardiology Consult: Dr. Washburn, help appreciated * Mycocardial perfusion stress on Wednesday, August 16, 2017 * monitor on telemetry * echocardiogram pending read * EKG: Rate 96 bpm, NSR, Q waves in inferior leads, No ST/T wave changes * ARLETH X4: negatives * BNP 109 * CXR (08/13/17): No active disease * [id number]: 4.3 * Lipid panel: T, Cholestrol: 125, LDL 44, HDL: 21 * Aspirin 81mg PO daily 3. Hyperbilirubinemia Transaminitis ETOH Abuse History of Hepatitis Jaundice * GI (Dr. Zaragoza) [facility]/patient's GI-->help appreciated * Pt noticed darker urine 3 weeks ago, noticed scleral icterus day of admission * Elevated total bilirubin 8.6 * Abdominal US (08/14/17): mildhepatosplenomegaly with prominent common bile duct. Intraluminal gallbladder sludge however no stones are identified. Liver increased echotexture consistent with fatty infiltration however infiltrative hepatocellular disease process not excluded. * Hepatitis: negative * HIV: negative * Elevated alcohol: 12 4. Macrocytic Anemia * Pt with long history of alcohol abuse and only able to tolerate liquids * MCV: 103.2; Hgb: 10.8 * Iron: 167, TIBC: 220, iron: 76 * folate: 2.9-->low * b12: 808 * reticulocyte count: 1.4 * Reticulocyte index: 0.58-->hypoproliferation of reticulocytes * haptoglobin: 102 5. Hx of EtOH abuse * EtOH: 12 on admission * MVi 1 tab PO daily * Thiamine 100mg PO daily * Folic Acid 1mg PO daily * Monitor on telemetry * Elevated alcohol on admission 6) Hyperglycemia * Accuchecks QAC and HS * A1C: 4.9 * Lipid panel: T, Cholestrol: 125, LDL 44, HDL: 21 7) Electrolyte abnormality * Monitor K+ and Mg2+ * replete if necessary 8) Leukocytosis-->resolved * WBC 12.2, pt afebrile * Etiology likely reactive since s/p fall * Monitor * Blood culture: no negative for 24 hours X2 * Chest xray: no acute disease 9) Hypertension * Norvasc 5mg PO daily * Enalapril 10mg PO daily * Aspirin 81mg PO daily 10) Tobacco cessation Alcohol Cessation * Strongly counselled at bedside on admission 11) Prophylaxis * Protonix 40mg IVP daily * Aspirin 81mg PO daily * Heparin 5000 units subq Q12H * Seizure precautions * Aspiration precautions * PT/OT eval * NPO after midnight * Pastoral care Disposition: f/u neurology in regards to CT head and neck findings, f/u cartoid duplex; awaiting official reads from echocardiogram; patient is scheduled for Myocardial perfusion stress test for August 16, 2017
--- NOTE | 2017-08-15 08:13 | CP.PCM.PN ---
Subjective - Date & Time of Evaluation Date of Evaluation: 08/15/17 Time of Evaluation: 08:11 - Subjective Subjective: Mr. Lee was seen and examined at the bedside. He is alert, oriented. He denies any headache, dizziness, lightheadedness, blurred vision, or diplopia. HE further states of feeling almost back to his baseline. He is able to follow commands. He has the superficial skin abrasion in his left upper forehead and a fading ecchymosis in his left upper lid. According to the patient, he is going for a cardiac stress test in am. There was no untoward events overnight. Objective - Vital Signs/Intake and Output Vital Signs (last 24 hours): Temp Pulse Resp BP Pulse Ox 98.0 F 110 H 20 137/74 97 08/14/17 23:40 08/15/17 07:30 08/14/17 23:40 08/14/17 23:40 08/14/17 23:40 - Medications Medications: Current Medications Amlodipine Besylate (Norvasc) 5 mg PO Q24H [facility] Last Admin: 08/14/17 18:04 Dose: 5 mg Aspirin (Ecotrin) 81 mg PO DAILY [facility] Last Admin: 08/14/17 10:23 Dose: 81 mg Enalapril Maleate (Vasotec) 10 mg PO DAILY [facility] Last Admin: 08/14/17 10:23 Dose: 10 mg Folic Acid (Folic Acid) 1 mg PO DAILY [facility] Last Admin: 08/14/17 18:04 Dose: 1 mg Heparin Sodium (Porcine) (Heparin) 5,000 units SC Q12 [facility] Last Admin: 08/14/17 21:11 Dose: 5,000 units Multivitamins (Hexavitamin) 1 tab PO DAILY [facility] Last Admin: 08/14/17 10:23 Dose: 1 tab Pantoprazole Sodium (Protonix Inj) 40 mg IVP DAILY [facility] Last Admin: 08/14/17 10:24 Dose: 40 mg Thiamine HCl (Vitamin B1 Tab) 100 mg PO DAILY [facility] Last Admin: 08/14/17 10:23 Dose: 100 mg - Labs Labs: 08/14/17 07:22 08/14/17 07:22 PT 13.6 SECONDS (9.7-12.2) H 08/14/17 07:22 INR 1.2 08/14/17 07:22 APTT 31 SECONDS (21-34) 08/13/17 12:33 - Constitutional Appears: No Acute Distress - Head Exam Head Exam: NORMAL INSPECTION - Neurological Exam Neurological Exam: Alert, Awake, Oriented x3 Neuro motor strength exam: Left Upper Extremity: 5, Right Upper Extremity: 5, Left Lower Extremity: 5, Right Lower Extremity: 5 Additional comments: He is alert, oriented, follows commands. Sensation is intact. Assessment and Plan (1) Syncope Assessment & Plan: Case discussed with Dr. Ball, continue all current medical, physical, and occupational therapies. Recommend to treat any underlying metabolic derangement. Recommend outpatient diagnostic cerebral angiogram (consult Dr. Daniel Murguia). Status: Acute
[2017-08-15 08:31] LABS: BASO # 0.1 K/uL (0.0-0.2); BASO % 0.5 % (0.0-2.0); EOS # 0.1 K/uL (0.0-0.7); EOS % 0.7 % (0.0-4.0); HEMOGLOBIN 10.3 g/dL (12.0-18.0); LYMPH # 3.2 K/uL (1.0-4.3); LYMPH % 29.6 % (20.0-40.0); MEAN CORPUSCULAR HEMOGLOBIN 35.6 pg (27.0-31.0); MEAN CORPUSCULAR HGB CONC 34.5 g/dL (33.0-37.0); MEAN PLATELET VOLUME 9.7 fL (7.2-11.7); MONO # 0.8 K/uL (0.0-0.8); MONO % 7.3 % (0.0-10.0); NEUT # 6.7 K/uL (1.8-7.0); NEUT % 61.9 % (50.0-75.0); NRBC % 0.1 % (0.0-2.0); RBC 2.89 Mil/uL (4.40-5.90); RED CELL DISTRIBUTION WIDTH 17.1 % (11.5-14.5); WHITE BLOOD COUNT 10.9 K/uL (4.8-10.8)
[2017-08-15 08:54] LABS: ALB/GLOB RATIO 0.8 (1.0-2.1); ALBUMIN 3.7 g/dL (3.5-5.0); ALT/SGPT 32 U/L (21-72); AST/SGOT 107 U/L (17-59); BLOOD UREA NITROGEN 10 mg/dL (9-20); CALCIUM 8.7 mg/dl (8.6-10.4); GFR AFRICAN-AMERICAN > 60; GFR NON-AFRICAN AMERICAN > 60
[2017-08-15] MEDS: Multiple Vitamins Tab PO SCH (09:08)
[2017-08-15] MEDS ORDERED: Potassium Chloride 20 mEq ER Tab PO SCH (10:00)
[2017-08-15] MEDS: Magnesium Sulfate 1 gm in D5W 1 GM/100 ML BAG IVPB SCH ×2 (11:00→13:19)
[2017-08-15] MEDS ORDERED: Potassium & Sodium Phosphate PO SCH (11:30)
[2017-08-15] MEDS ORDERED: Magnesium Sulfate 1 gm in D5W 1 GM/100 ML BAG IVPB SCH (13:00)
--- NOTE | 2017-08-15 13:02 | CARD ---
APPROVED REPORT EXAM: Two-dimensional and M-mode echocardiogram with Doppler and color Doppler. Other Information Quality : GoodRhythm : INDICATION Cardiac Disease: CAD Syncope 2D DIMENSIONS IVSd1.2 (0.7-1.1cm)Aortic Root (2D)3.3 (2.0-3.7cm) LVDd3.7 (3.9-5.9cm)PWd1.2 (0.7-1.1cm) LVDs2.8 (2.5-4.0cm)FS (%) 24.7 % LVEF (%)49.7 (>50%) Mitral Valve MV E Ovrrhysj77.0cm/sMV A Aeleisgm44.5cm/sE/A ratio0.9 TDI E/Lateral E'0.0E/Medial E'0.0 Tricuspid Valve TR Peak [id number]/sTR Peak Gr.[id number] LEFT VENTRICLE The left ventricle is normal size. There is normal left ventricular wall thickness. The left ventricular function is normal. The left ventricular ejection fraction is within the normal range. No regional wall motion abnormalities noted. The left ventricular diastolic function is normal. No left ventricle thrombus noted on this study. There is no ventricular septal defect visualized. There is no left ventricular aneurysm. There is no mass noted in the left ventricle. RIGHT VENTRICLE The right ventricle is normal size. There is normal right ventricular wall thickness. The right ventricular systolic function is normal. ATRIA The left atrium size is normal. The right atrium size is normal. The interatrial septum is intact with no evidence for an atrial septal defect. AORTIC VALVE The aortic valve is normal in structure and function. No aortic regurgitation is present. There is no aortic valvular stenosis. There is no aortic valvular vegetation. MITRAL VALVE The mitral valve is normal in structure and function. There is no evidence of mitral valve prolapse. There is no mitral valve stenosis. There is no mitral valve regurgitation noted. TRICUSPID VALVE The tricuspid valve is normal in structure and function. There is mild tricuspid regurgitation. Right ventricular systolic pressure is estimated at 40-50 mmHg. There is no tricuspid valve prolapse or vegetation. There is no tricuspid valve stenosis. PULMONIC VALVE The pulmonary valve is normal in structure and function. There is no pulmonic valvular regurgitation. There is no pulmonic valvular stenosis. GREAT VESSELS The aortic root is normal in size. The ascending aorta is normal in size. The pulmonary artery is normal. The IVC is normal in size and collapses >50% with inspiration. PERICARDIAL EFFUSION The pericardium appears normal. There is no pleural effusion. <Conclusion> The left ventricular function is normal. The left ventricular ejection fraction is within the normal range. No regional wall motion abnormalities noted. There is mild tricuspid regurgitation. Right ventricular systolic pressure is estimated at 40-50 mmHg.
[2017-08-15] MEDS: Potassium & Sodium Phosphate PO SCH ×2 (13:19→17:40)
[2017-08-16 07:06] LABS: BASO # 0.1 K/uL (0.0-0.2); BASO % 1.1 % (0.0-2.0); EOS # 0.1 K/uL (0.0-0.7); EOS % 0.8 % (0.0-4.0); HEMOGLOBIN 10.6 g/dL (12.0-18.0); LYMPH # 2.9 K/uL (1.0-4.3); LYMPH % 28.8 % (20.0-40.0); MEAN CELL VOLUME 101.9 fL (80.0-94.0); MEAN CORPUSCULAR HEMOGLOBIN 35.5 pg (27.0-31.0); MEAN CORPUSCULAR HGB CONC 34.8 g/dL (33.0-37.0); MEAN PLATELET VOLUME 9.2 fL (7.2-11.7); MONO # 0.9 K/uL (0.0-0.8); MONO % 8.4 % (0.0-10.0); NEUT # 6.2 K/uL (1.8-7.0); NEUT % 60.9 % (50.0-75.0); NRBC % 0.2 % (0.0-2.0); RBC 2.99 Mil/uL (4.40-5.90); RED CELL DISTRIBUTION WIDTH 17.4 % (11.5-14.5); WHITE BLOOD COUNT 10.1 K/uL (4.8-10.8)
--- NOTE | 2017-08-16 07:18 | CP.PCM.PN ---
Subjective - Date & Time of Evaluation Date of Evaluation: 08/16/17 Time of Evaluation: :18 - Subjective Subjective: Mr. Lee was seen and examined at the bedside. He is alert, oriented. He denies any headache, dizziness, lightheadedness, blurred vision, or diplopia. HE further states of feeling almost back to his baseline. He is able to follow commands. He has the superficial skin abrasion in his left upper forehead and a fading ecchymosis in his left upper lid. According to the patient, he is going for a cardiac stress test today. There was no untoward events overnight. Objective - Vital Signs/Intake and Output Vital Signs (last 24 hours): Temp Pulse Resp BP Pulse Ox 98.2 F 80 20 146/76 93 L 08/15/17 23:45 08/15/17 23:45 08/15/17 23:45 08/15/17 23:45 08/15/17 23:45 - Medications Medications: Current Medications Amlodipine Besylate (Norvasc) 5 mg PO Q24H [facility] Last Admin: 08/15/17 17:40 Dose: 5 mg Aspirin (Ecotrin) 81 mg PO DAILY [facility] Last Admin: 08/15/17 09:08 Dose: 81 mg Enalapril Maleate (Vasotec) 10 mg PO DAILY [facility] Last Admin: 08/15/17 09:08 Dose: 10 mg Folic Acid (Folic Acid) 1 mg PO DAILY [facility] Last Admin: 08/15/17 09:08 Dose: 1 mg Heparin Sodium (Porcine) (Heparin) 5,000 units SC Q12 [facility] Last Admin: 08/15/17 21:17 Dose: 5,000 units Multivitamins (Hexavitamin) 1 tab PO DAILY [facility] Last Admin: 08/15/17 09:08 Dose: 1 tab Pantoprazole Sodium (Protonix Inj) 40 mg IVP DAILY [facility] Last Admin: 08/15/17 09:07 Dose: 40 mg Potassium Phos/Sodium Phos (Neutra-Phos) 1 pkt PO AC [facility] Stop: 08/16/17 11:31 Last Admin: 08/15/17 17:40 Dose: 1 pkt Thiamine HCl (Vitamin B1 Tab) 100 mg PO DAILY [facility] Last Admin: 08/15/17 09:08 Dose: 100 mg - Labs Labs: 08/15/17 08:25 08/15/17 08:25 PT 13.6 SECONDS (9.7-12.2) H 08/14/17 07:22 INR 1.2 08/14/17 07:22 APTT 31 SECONDS (21-34) 08/13/17 12:33 - Constitutional Appears: No Acute Distress - Head Exam Head Exam: NORMAL INSPECTION - Neurological Exam Neurological Exam: Alert, Awake, Oriented x3 Neuro motor strength exam: Left Upper Extremity: 5, Right Upper Extremity: 5, Left Lower Extremity: 5, Right Lower Extremity: 5 Additional comments: Neurological unchanged from previous examination. Assessment and Plan (1) Syncope Assessment & Plan: Case discussed with Dr. Ball, continue all current medical, physical, and occupational therapies. Recommend to treat any underlying metabolic derangement. Recommend outpatient diagnostic cerebral angiogram for the left ICA (consult Dr. Daniel Murguia) and prolonged cardiac monitoring with loop device with Dr. Bustamante. Status: Acute
[2017-08-16] MEDS: Potassium & Sodium Phosphate PO SCH ×2 (07:39→11:49)
[2017-08-16 07:50] LABS: ALB/GLOB RATIO 0.8 (1.0-2.1); ALBUMIN 3.6 g/dL (3.5-5.0); ALT/SGPT 26 U/L (21-72); AST/SGOT 101 U/L (17-59); BLOOD UREA NITROGEN 9 mg/dL (9-20); GFR AFRICAN-AMERICAN > 60; GFR NON-AFRICAN AMERICAN > 60
--- NOTE | 2017-08-16 08:50 | CP.PCM.PN ---
Subjective - Date & Time of Evaluation Date of Evaluation: 08/16/17 Time of Evaluation: 08:45 - Subjective Subjective: nuclear stress test performed. await images. Objective - Vital Signs/Intake and Output Vital Signs (last 24 hours): Temp Pulse Resp BP Pulse Ox 98.0 F 101 H 18 109/67 97 08/16/17 07:35 08/16/17 07:35 08/16/17 07:35 08/16/17 07:35 08/16/17 07:35 - Medications Medications: Current Medications Amlodipine Besylate (Norvasc) 5 mg PO Q24H [facility] Last Admin: 08/15/17 17:40 Dose: 5 mg Aspirin (Ecotrin) 81 mg PO DAILY [facility] Last Admin: 08/15/17 09:08 Dose: 81 mg Enalapril Maleate (Vasotec) 10 mg PO DAILY [facility] Last Admin: 08/15/17 09:08 Dose: 10 mg Folic Acid (Folic Acid) 1 mg PO DAILY [facility] Last Admin: 08/15/17 09:08 Dose: 1 mg Heparin Sodium (Porcine) (Heparin) 5,000 units SC Q12 [facility] Last Admin: 08/15/17 21:17 Dose: 5,000 units Multivitamins (Hexavitamin) 1 tab PO DAILY [facility] Last Admin: 08/15/17 09:08 Dose: 1 tab Pantoprazole Sodium (Protonix Inj) 40 mg IVP DAILY [facility] Last Admin: 08/15/17 09:07 Dose: 40 mg Potassium Phos/Sodium Phos (Neutra-Phos) 1 pkt PO AC [facility] Stop: 08/16/17 11:31 Last Admin: 08/16/17 07:39 Dose: Not Given Thiamine HCl (Vitamin B1 Tab) 100 mg PO DAILY [facility] Last Admin: 08/15/17 09:08 Dose: 100 mg - Labs Labs: 08/16/17 06:54 08/16/17 06:54 PT 13.6 SECONDS (9.7-12.2) H 08/14/17 07:22 INR 1.2 08/14/17 07:22 APTT 31 SECONDS (21-34) 08/13/17 12:33 Assessment and Plan (1) Syncope Status: Acute (2) CAD (coronary artery disease) Status: Acute
[2017-08-16] MEDS: Multiple Vitamins Tab PO SCH (09:40)
[2017-08-16] MEDS ORDERED: Magnesium Sulfate 1 gm in D5W 1 GM/100 ML BAG IVPB SCH (11:00)
--- NOTE | 2017-08-16 13:20 | CP.PCM.PN ---
Subjective - Date & Time of Evaluation Date of Evaluation: 08/16/17 Time of Evaluation: 13:18 - Subjective Subjective: CC: jaundice Stronger Undergoing cardiac workup for syncope Denies dyspnea, abdominal pain Objective - Vital Signs/Intake and Output Vital Signs (last 24 hours): Temp Pulse Resp BP Pulse Ox 98.0 F 101 H 18 109/67 97 08/16/17 07:35 08/16/17 07:35 08/16/17 07:35 08/16/17 07:35 08/16/17 07:35 - Medications Medications: Current Medications Amlodipine Besylate (Norvasc) 5 mg PO Q24H [facility] Last Admin: 08/15/17 17:40 Dose: 5 mg Aspirin (Ecotrin) 81 mg PO DAILY [facility] Last Admin: 08/16/17 09:39 Dose: Not Given Enalapril Maleate (Vasotec) 10 mg PO DAILY [facility] Last Admin: 08/16/17 09:40 Dose: Not Given Folic Acid (Folic Acid) 1 mg PO DAILY [facility] Last Admin: 08/16/17 09:39 Dose: Not Given Heparin Sodium (Porcine) (Heparin) 5,000 units SC Q12 [facility] Last Admin: 08/15/17 21:17 Dose: 5,000 units Ceftriaxone Sodium 1 gm/ (Sodium Chloride) 100 mls @ 100 mls/hr IVPB Q24H [facility] PRN Reason: Protocol Magnesium Sulfate/Dextrose (Magnesium Sulfate 1 Gm/100 Ml D5w) 1 gm in 100 mls @ 200 mls/hr IVPB ONCE ONE Stop: 08/16/17 15:29 Magnesium Sulfate/Dextrose (Magnesium Sulfate 1 Gm/100 Ml D5w) 1 gm in 100 mls @ 200 mls/hr IVPB ONCE ONE Stop: 08/16/17 15:59 Multivitamins (Hexavitamin) 1 tab PO DAILY [facility] Last Admin: 08/16/17 09:40 Dose: Not Given Pantoprazole Sodium (Protonix Inj) 40 mg IVP DAILY [facility] Last Admin: 08/16/17 09:40 Dose: Not Given Saccharomyces Boulardii (Florastor) 250 mg PO BID [facility] Thiamine HCl (Vitamin B1 Tab) 100 mg PO DAILY [facility] Last Admin: 08/16/17 09:40 Dose: Not Given - Labs Labs: 08/16/17 06:54 08/16/17 06:54 PT 13.6 SECONDS (9.7-12.2) H 08/14/17 07:22 INR 1.2 08/14/17 07:22 APTT 31 SECONDS (21-34) 08/13/17 12:33 - Constitutional Appears: No Acute Distress - Eye Exam Eye Exam: Scleral icterus - ENT Exam ENT Exam: Normal Exam - Neck Exam Neck Exam: Normal Inspection - Respiratory Exam Respiratory Exam: NORMAL BREATHING PATTERN - Cardiovascular Exam Cardiovascular Exam: REGULAR RHYTHM - GI/Abdominal Exam GI & Abdominal Exam: Soft. absent: Tenderness, Mass, Organomegaly - Extremities Exam Extremities Exam: Normal Inspection. absent: Pedal Edema Assessment and Plan (1) Alcoholic hepatitis Assessment & Plan: Clinically improving Needs alcohol abuse counselling Psych eval done no further GI eval planned Status: Acute (2) Syncope Assessment & Plan: workup in progress Status: Acute (3) Anemia due to folate deficiency Assessment & Plan: Folate replacement in progress Status: Acute
--- NOTE | 2017-08-16 13:59 | VASCLAB ---
PROCEDURE: HISTORY: Syncope COMPARISON: None available. TECHNIQUE: Grayscale and duplex Doppler evaluation of the cervical carotid and vertebral arteries were performed. The common carotid, carotid bifurcations and cervical Internal Carotid Artery (ICA) and proximal External Carotid Artery (ECA) were evaluated. The vertebral arteries were evaluated for gross patency and flow direction. Report prepared by Garry Chen, BS, RVT FINDINGS: RIGHT CAROTID ARTERIES: 1. Common Carotid Artery: No significant focal plaque formation of the right common carotid artery. Maximum Peak Systolic velocity: 52 cm/sec: End-diastolic velocity 17 cm/sec. 2. Carotid Bifurcation: plaque formation. Maximum Peak Systolic velocity: 52 cm/sec: End-diastolic velocity 17 cm/sec. 3. Internal Carotid Artery: Minimal plaque formation of the right proximal ICA which does not result in hemodynamically significant stenosis. Plaque description: Calcific 3.1. Proximal Segment: Peak systolic velocity 45 cm/sec: End-diastolic velocity 13 cm/sec - % stenosis 0-15% 3.2. Middle Segment: Peak systolic velocity 65 cm/sec: End-diastolic velocity 18 cm/sec - % stenosis 0-15% 3.3. Distal Segment: Peak systolic velocity 85 cm/sec: End-diastolic velocity 26 cm/sec - % stenosis 0-15% 4. External Carotid Artery: No significant focal plaque formation. Peak systolic velocity 140 cm/sec 5. ICA/CCA Ratio: 1.6 LEFT CAROTID ARTERIES: 1. Common Carotid Artery: No significant focal plaque formation of the left common carotid artery. Maximum Peak Systolic velocity: 72 cm/sec: End-diastolic velocity 13 cm/sec. 2. Carotid Bifurcation: plaque formation. Maximum Peak Systolic velocity: 83 cm/sec: End-diastolic velocity 18 cm/sec. 3. Internal Carotid Artery: Minimal plaque formation of the left proximal ICA which does not result in hemodynamically significant stenosis. Plaque description: Heterogeneous 3.1. Proximal Segment: Peak systolic velocity 61 cm/sec: End-diastolic velocity 17 cm/sec - % stenosis 0-15% 3.2. Middle Segment: Peak systolic velocity 62 cm/sec: End-diastolic velocity 21 cm/sec - % stenosis 0-15% 3.3. Distal Segment: Peak systolic velocity 80 cm/sec: End-diastolic velocity 18 cm/sec - % stenosis 0-15% 4. External Carotid Artery: No significant focal plaque formation. Peak systolic velocity 149 cm/sec 5. ICA/CCA Ratio: 1.2 VERTEBRAL ARTERIES: 1. Right Vertebral Artery: The right vertebral artery flow direction is antegrade. 2. Left Vertebral Artery: The left vertebral artery flow direction is antegrade. OTHER FINDINGS: 1. Right Brachial Blood pressure: 130 mmHg. 2. Left Brachial Blood pressure: 124 mmHg. IMPRESSION: RIGHT: Duplex scan does not suggest hemodynamically significant stenosis of the right extracranial carotid arteries. LEFT: Duplex scan does not suggest hemodynamically significant stenosis of the left extracranial carotid arteries.
[2017-08-16] MEDS ORDERED: Magnesium Sulfate 1 gm in D5W 1 GM/100 ML BAG IVPB ONE ×2 (15:00→15:30)
--- NOTE | 2017-08-16 17:09 | CP.PCM.PN ---
Subjective - Date & Time of Evaluation Date of Evaluation: 08/16/17 Time of Evaluation: 11:15 - Subjective Subjective: PGY1 Medicine Note for Dr. Eb Hayes Patient seen and examined at bedside this morning. No acute events over night. Patient had stress test this morning. He does not want to be in the hospital any longer and would like to go home as soon as possible. He states he feels normal. He is requesting a regular diet as he was NPO this morning for the stress test. Denies fevers, chills, nausea, vomiting, diarrhea, constipation, chest pain, shortness of breath, abdominal pain, lightheadedness, dizziness or headache. Objective - Vital Signs/Intake and Output Vital Signs (last 24 hours): Temp Pulse Resp BP Pulse Ox 98.0 F 101 H 18 109/67 97 08/16/17 07:35 08/16/17 07:35 08/16/17 07:35 08/16/17 07:35 08/16/17 07:35 - Medications Medications: Current Medications Amlodipine Besylate (Norvasc) 5 mg PO Q24H [facility] Last Admin: 08/15/17 17:40 Dose: 5 mg Aspirin (Ecotrin) 81 mg PO DAILY [facility] Last Admin: 08/16/17 09:39 Dose: Not Given Enalapril Maleate (Vasotec) 10 mg PO DAILY [facility] Last Admin: 08/16/17 09:40 Dose: Not Given Escitalopram Oxalate (Lexapro) 5 mg PO DAILY [facility] Folic Acid (Folic Acid) 1 mg PO DAILY [facility] Last Admin: 08/16/17 09:39 Dose: Not Given Heparin Sodium (Porcine) (Heparin) 5,000 units SC Q12 [facility] Last Admin: 08/15/17 21:17 Dose: 5,000 units Ceftriaxone Sodium 1 gm/ (Sodium Chloride) 100 mls @ 100 mls/hr IVPB Q24H [facility] PRN Reason: Protocol Last Admin: 08/16/17 13:36 Dose: 100 mls/hr Multivitamins (Hexavitamin) 1 tab PO DAILY [facility] Last Admin: 08/16/17 09:40 Dose: Not Given Pantoprazole Sodium (Protonix Inj) 40 mg IVP DAILY [facility] Last Admin: 08/16/17 09:40 Dose: Not Given Saccharomyces Boulardii (Florastor) 250 mg PO BID [facility] Thiamine HCl (Vitamin B1 Tab) 100 mg PO DAILY [facility] Last Admin: 08/16/17 09:40 Dose: Not Given - Labs Labs: 08/16/17 06:54 08/16/17 06:54 PT 13.6 SECONDS (9.7-12.2) H 08/14/17 07:22 INR 1.2 08/14/17 07:22 APTT 31 SECONDS (21-34) 08/13/17 12:33 - Constitutional Appears: Non-toxic, No Acute Distress - Head Exam Head Exam: NORMOCEPHALIC. absent: ATRAUMATIC (multiple areas of abrasions on forehead - patient states they are from various falls.) - Eye Exam Eye Exam: EOMI, Scleral icterus Pupil Exam: PERRL - ENT Exam ENT Exam: Mucous Membranes Moist - Neck Exam Additional comments: no bruits b/l - Respiratory Exam Respiratory Exam: Clear to Ausculation Bilateral, NORMAL BREATHING PATTERN. absent: Accessory Muscle Use, Rales, Rhonchi, Wheezes, Respiratory Distress - Cardiovascular Exam Cardiovascular Exam: REGULAR RHYTHM, +S1, +S2, +S4 - GI/Abdominal Exam GI & Abdominal Exam: Soft, Normal Bowel Sounds. absent: Distended, Firm, Guarding, Rigid, Tenderness Additional comments: increased abdominal girth - Extremities Exam Extremities Exam: absent: Calf Tenderness, Pedal Edema - Neurological Exam Neurological Exam: Alert, Awake, Oriented x3 - Psychiatric Exam Psychiatric exam: Normal Affect, Normal Mood - Skin Skin Exam: Dry, Warm Assessment and Plan - Assessment and Plan (Free Text) Plan: Recurrent Syncope * Admit to telemetry * Etiologies to exclude: arrhythmia, ischemic heart disease, alcoholism, seizure , electrolyte imbalance * Cardiology (Dr. Washburn) seconds inspector-->help appreciated * Mycocardial perfusion stress for Wednesday. August 16 2017 * Echocardiogram--> EF ~50%, mild tricuspid regurg. * Neurology (Dr. Ball) seconds inspector--> help appreciated * CTA head/neck (08/14): significant calcified atherosclerotic plaque change in left cartoid bifurcation which appears to result in approximaltely 75% diameter stenosis. calcified atherosclerotic plaque also noted along the cavernous carotid segments extending superiorly into the supraclinoid segments with moderate stenosis. No evidence of occlusion of the cerebral vasculature. No evidence of large aneurysm nor vascular malformation * f/u EEG (will not be performed until 08/16/17) * f/u neurology * Head CT (08/13/2017): No acute intracranial abnormality. Mild chronic microangiopathic changes and moderate age-related global parenchymal volume loss. (see full report) * Head CT (08/14/2017): no change from prior * Orbit CT (08/13/2017): No acute orbital fracture. No evidence of acute globe injury. * Fall precautions * EKG: Rate 96 bpm, NSR, Q waves in inferior leads, No ST/T wave changes * Repeat EKG and ROMIs, Q6Hs * BNP 109 * CXR (08/13/17): No active disease * Urine drug screen: positive for cannabis * Elevated alcohol * TSH: 3.51, Free T4: 1.91 Neuro Recs: - Outpatient diagnostic cerebral angiogram for the left ICA (consult Dr. Daniel Murguia). - Prolonged cardiac monitoring with loop device with Dr. Bustamante. Abnormal EKG - pathologic Q waves * Cardiology Consult: Dr. Washburn, help appreciated * Mycocardial perfusion stress - awaiting official results * monitor on telemetry * echocardiogram--> EF ~50%, mild tricuspid regurg. * EKG: Rate 96 bpm, NSR, Q waves in inferior leads, No ST/T wave changes * ARLETH X4: negatives * BNP 109 * CXR (08/13/17): No active disease * [id number]: 4.3 * Lipid panel: T, Cholestrol: 125, LDL 44, HDL: 21 * Aspirin 81mg PO daily UTI * Urine Culture - Gram positive cocci - f/u sensitivities * Started Rocephin 1gm IVPB q24h (Started on 08/16, Last dose on 08/25) Hyperbilirubinemia/Transaminitis/ETOH Abuse/History of Hepatitis/Jaundice * GI (Dr. Zaragoza) seconds inspector/patient's GI-->help appreciated * Pt noticed darker urine 3 weeks ago, noticed scleral icterus day of admission * Elevated total bilirubin 8.6 * Abdominal US (08/14/17): mildhepatosplenomegaly with prominent common bile duct. Intraluminal gallbladder sludge however no stones are identified. Liver increased echotexture consistent with fatty infiltration however infiltrative hepatocellular disease process not excluded. * Hepatitis: negative * HIV: negative * Elevated alcohol: 12 Macrocytic Anemia * Pt with long history of alcohol abuse * MCV: 101.9; Hgb: 10.6 * Iron: 167, TIBC: 220, iron: 76 * folate: 2.9-->low * b12: 808 * reticulocyte count: 1.4 * Reticulocyte index: 0.58-->hypoproliferation of reticulocytes * haptoglobin: 102 Hx of EtOH abuse * EtOH: 12 on admission * Multivitamin 1 tab PO daily * Thiamine 100mg PO daily * Folic Acid 1mg PO daily * Monitor on telemetry Hyperglycemia * Accuchecks QAC and HS * A1C: 4.9 * Lipid panel: T, Cholestrol: 125, LDL 44, HDL: 21 Electrolyte abnormality * Monitor K+ and Mg2+ * Mg2+ repleted with 2gm IVPB Leukocytosis-->resolved * WBC 10.1, pt afebrile * Etiology likely reactive since s/p fall * Monitor * Blood culture: no negative for 48 hours X2 * Chest xray: no acute disease Hypertension * Norvasc 5mg PO daily * Enalapril 10mg PO daily * Aspirin 81mg PO daily Tobacco cessation Alcohol Cessation * Strongly counselled at bedside on admission Prophylaxis * Protonix 40mg IVP daily * Aspirin 81mg PO daily * Heparin 5000 units subq Q12H * Seizure precautions * Aspiration precautions * PT/OT eval * NPO after midnight * Pastoral care DISPO: Upon discharge, patient will need outpatient diagnostic cerebral angiogram for the left ICA (consult Dr. Daniel Murguia), prolonged cardiac monitoring with loop device with Dr. Bustamante and colonoscopy. Will plan to discharge pending results of cardiac stress test. Case discussed with Dr. Eb Whelan Dianelys PGY1
[2017-08-16] MEDS: Saccharomyces Boulardi 250 mg Cap PO SCH (17:48)
--- NOTE | 2017-08-16 17:54 | CP.PCM.PN ---
Subjective - Date & Time of Evaluation Date of Evaluation: 08/16/17 Time of Evaluation: 17:50 - Subjective Subjective: stress test performed. no evidence of myocardial ischemia. Normal left ventricular function Objective - Vital Signs/Intake and Output Vital Signs (last 24 hours): Temp Pulse Resp BP Pulse Ox 98.0 F 101 H 18 109/67 97 08/16/17 07:35 08/16/17 07:35 08/16/17 07:35 08/16/17 07:35 08/16/17 07:35 - Medications Medications: Current Medications Amlodipine Besylate (Norvasc) 5 mg PO Q24H [facility] Last Admin: 08/16/17 17:48 Dose: 5 mg Aspirin (Ecotrin) 81 mg PO DAILY [facility] Last Admin: 08/16/17 09:39 Dose: Not Given Enalapril Maleate (Vasotec) 10 mg PO DAILY [facility] Last Admin: 08/16/17 09:40 Dose: Not Given Escitalopram Oxalate (Lexapro) 5 mg PO DAILY [facility] Folic Acid (Folic Acid) 1 mg PO DAILY [facility] Last Admin: 08/16/17 09:39 Dose: Not Given Heparin Sodium (Porcine) (Heparin) 5,000 units SC Q12 [facility] Last Admin: 08/15/17 21:17 Dose: 5,000 units Ceftriaxone Sodium 1 gm/ (Sodium Chloride) 100 mls @ 100 mls/hr IVPB Q24H [facility] PRN Reason: Protocol Last Admin: 08/16/17 13:36 Dose: 100 mls/hr Multivitamins (Hexavitamin) 1 tab PO DAILY [facility] Last Admin: 08/16/17 09:40 Dose: Not Given Pantoprazole Sodium (Protonix Inj) 40 mg IVP DAILY [facility] Last Admin: 08/16/17 09:40 Dose: Not Given Saccharomyces Boulardii (Florastor) 250 mg PO BID [facility] Last Admin: 08/16/17 17:48 Dose: 250 mg Thiamine HCl (Vitamin B1 Tab) 100 mg PO DAILY [facility] Last Admin: 08/16/17 09:40 Dose: Not Given - Labs Labs: 08/16/17 06:54 08/16/17 06:54 PT 13.6 SECONDS (9.7-12.2) H 08/14/17 07:22 INR 1.2 08/14/17 07:22 APTT 31 SECONDS (21-34) 08/13/17 12:33 Assessment and Plan (1) Syncope Status: Acute (2) CAD (coronary artery disease) Status: Acute
[2017-08-16 19:01] VITALS: RESP 20
--- NOTE | 2017-08-16 21:15 | CARD ---
APPROVED REPORT EKG Measurement Heart [id number] <Conclusion> Normal sinus rhythm Normal ECG
--- NOTE | 2017-08-16 21:16 | CARD ---
APPROVED REPORT EKG Measurement Heart [id number] <Conclusion> Normal sinus rhythm Possible Left atrial enlargement Low voltage QRS Borderline ECG
--- NOTE | 2017-08-16 23:34 | PCM.PSYCH ---
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 He is here alcohol-related syncope. is worried that he had increased his drinking "a lot." However, he claims he still drinks 1 pint a day and that he should be OK if he can only decrease "a little." Risks discussed No seizures (yet known) or DTs. Drinnking for decades but no previous tx history No drugs but MJ at times. Quit smoking cig, 5 years ago He also has some anxiety and depressive sxs but not suicidal - confirmed by No confusion or psychosis/esthela Past psych hx: Denied Medical; Obese, HTN Family psych hx: "They all drink" Current Medications: Active Medications Generic Name Dose Route Start Last Admin Trade Name Farooq PRN Reason Stop Dose Admin Amlodipine Besylate 5 mg 08/13/17 18:00 08/16/17 17:48 Norvasc PO 5 mg Q24H [facility] Administration Aspirin 81 mg 08/14/17 10:00 08/16/17 09:39 Ecotrin PO Not Given DAILY [facility] Enalapril Maleate 10 mg 08/14/17 10:00 08/16/17 09:40 Vasotec PO Not Given DAILY [facility] Escitalopram Oxalate 5 mg 08/17/17 10:00 Lexapro PO DAILY [facility] Folic Acid 1 mg 08/14/17 18:10 08/16/17 09:39 Folic Acid PO Not Given DAILY [facility] Heparin Sodium (Porcine) 5,000 units 08/14/17 22:00 08/15/17 21:17 Heparin SC 5,000 units Q12 [facility] Administration Ceftriaxone Sodium 1 gm/ 100 mls @ 100 mls/hr 08/16/17 14:00 08/16/17 13:36 Sodium Chloride IVPB 100 mls/hr Q24H [facility] Administration Protocol Multivitamins 1 tab 08/13/17 18:15 08/16/17 09:40 Hexavitamin PO Not Given DAILY [facility] Pantoprazole Sodium 40 mg 08/14/17 10:00 04/02/18 09:40 Protonix Inj IVP Not Given DAILY [facility] Saccharomyces Boulardii 250 mg 08/16/17 18:00 08/16/17 17:48 Florastor PO 250 mg BID [facility] Administration Thiamine HCl 100 mg 08/13/17 18:15 08/16/17 09:40 Vitamin B1 Tab PO Not Given DAILY [facility] Past Psychiatric History - Past Psychiatric History Previous Treatment History: None Pertinent Medical Hx (Current Medical&Sleep Prob, Allergies): Allergies Allergy/AdvReac Type Severity Reaction Status Date / Time No Known Allergies Allergy Unverified 08/13/17 11:47 Amlodipine Besylate/Benazepril [Lotrel 5-20 mg Capsule] 1 cap PO DAILY 08/13/17 Review of Systems - Neurological Neurological: UNREMARKABLE - Psychiatric Psychiatric: Abnormal Sleep Pattern, Anxiety, Depression, Difficulty Concentrating. absent: Homicidal Ideation, Suicidal Ideation Mental Status Examination - Personal Presentation Personal Presentation: Looks stated age - Affect Affect: Constricted - Motor Activity Motor Activity: Calm - Reliability in Providing Information Reliability in Providing Information: Fair - Speech Speech: Organized - Mood Mood: Depressed, Anxious - Formal Thought Process Formal Thought Process: No Impairment - Cognitive Functions Orientation: Person, Place, Situation, Time Sensorium: Alert Attention/Concentration: Attentive Estimate of Intelligence: Average Judgement: Intact, as evidence by: Insight regarding need for hospitalization Memory: Recent intact, as evidence by: Ability to recall events of the day, Remote intact, as evidenced by: Abilit to recall sig. life events - Risk Risk: Withdrawal, Diminished functioning - Strength & Assets Inventory Strength & Assets Inventory: Cooperative DSM 5 DX - DSM 5 DSM 5 Diagnosis: Alcohol use d/o -severe Depressive d/o - unspecified - Recommended/Plan of Treatment Treatment Recommendations and Plan of Treatment: Continue current medications Follow after care plan as discussed: consider AA at the very least [place] used for detox/rehab Return to ER or call 911 if suicidal, homicidal or symptoms relapse. Stay away from stress, alcohol and drugs. See primary doctor regularly Lexapro for depressive sxs Support and psychoed 33 min
[2017-08-17] MEDS ORDERED: DiphenhydrAMINE 50 mg/ml Inj IVP STA (00:08)
[2017-08-17 01:06] VITALS: O2SAT 97
[2017-08-17 06:53] LABS: BASO % 0.5 % (0.0-2.0); EOS # 0.1 K/uL (0.0-0.7); HEMOGLOBIN 9.4 g/dL (12.0-18.0); LYMPH % 25.1 % (20.0-40.0); MEAN CELL VOLUME 102.4 fL (80.0-94.0); MEAN CORPUSCULAR HEMOGLOBIN 35.7 pg (27.0-31.0); MEAN CORPUSCULAR HGB CONC 34.9 g/dL (33.0-37.0); MEAN PLATELET VOLUME 8.8 fL (7.2-11.7); MONO # 0.9 K/uL (0.0-0.8); MONO % 11.6 % (0.0-10.0); NEUT % 61.8 % (50.0-75.0); NRBC % 0.1 % (0.0-2.0); RBC 2.64 Mil/uL (4.40-5.90); RED CELL DISTRIBUTION WIDTH 17.9 % (11.5-14.5); WHITE BLOOD COUNT 8.1 K/uL (4.8-10.8)
[2017-08-17 07:52] LABS: ALB/GLOB RATIO 0.8 (1.0-2.1); ALT/SGPT 25 U/L (21-72); AST/SGOT 85 U/L (17-59); BLOOD UREA NITROGEN 11 mg/dL (9-20); CALCIUM 8.5 mg/dl (8.6-10.4); GFR AFRICAN-AMERICAN > 60; GFR NON-AFRICAN AMERICAN > 60
[2017-08-17 08:00] VITALS: TEMP 97.7
[2017-08-17] MEDS: Multiple Vitamins Tab PO SCH (09:12)
[2017-08-17] MEDS: Saccharomyces Boulardi 250 mg Cap PO SCH (09:12)
[2017-08-17 09:22] VITALS: BP 130/69
--- NOTE | 2017-08-17 10:10 | CP.PCM.PN ---
Subjective - Date & Time of Evaluation Date of Evaluation: 08/17/17 Time of Evaluation: 10:07 - Subjective Subjective: COVERING DR GTZ No new c/o Cardiac w/u in progress Objective - Vital Signs/Intake and Output Vital Signs (last 24 hours): Temp Pulse Resp BP Pulse Ox 97.7 F 96 H 20 130/69 97 08/17/17 07:55 08/17/17 07:55 08/17/17 07:55 08/17/17 09:14 08/17/17 07:55 Intake and Output: 08/17/17 08/17/17 06:59 18:59 Intake Total 520 Balance 520 - Medications Medications: Current Medications Amlodipine Besylate (Norvasc) 5 mg PO Q24H [facility] Last Admin: 08/16/17 17:48 Dose: 5 mg Aspirin (Ecotrin) 81 mg PO DAILY [facility] Last Admin: 08/17/17 09:13 Dose: 81 mg Enalapril Maleate (Vasotec) 10 mg PO DAILY [facility] Last Admin: 08/17/17 09:14 Dose: 10 mg Escitalopram Oxalate (Lexapro) 5 mg PO DAILY [facility] Last Admin: 08/17/17 09:12 Dose: 5 mg Folic Acid (Folic Acid) 1 mg PO DAILY [facility] Last Admin: 08/17/17 09:13 Dose: 1 mg Heparin Sodium (Porcine) (Heparin) 5,000 units SC Q12 [facility] Last Admin: 08/17/17 09:13 Dose: 5,000 units Ceftriaxone Sodium 1 gm/ (Sodium Chloride) 100 mls @ 100 mls/hr IVPB Q24H [facility] PRN Reason: Protocol Last Admin: 08/16/17 13:36 Dose: 100 mls/hr Magnesium Sulfate/Dextrose (Magnesium Sulfate 1 Gm/100 Ml D5w) 1 gm in 100 mls @ 100 mls/hr IVPB Q1H [facility] Stop: 08/17/17 11:59 Multivitamins (Hexavitamin) 1 tab PO DAILY [facility] Last Admin: 08/17/17 09:12 Dose: 1 tab Pantoprazole Sodium (Protonix Inj) 40 mg IVP DAILY [facility] Last Admin: 08/17/17 09:14 Dose: 40 mg Saccharomyces Boulardii (Florastor) 250 mg PO BID [facility] Last Admin: 08/17/17 09:12 Dose: 250 mg Thiamine HCl (Vitamin B1 Tab) 100 mg PO DAILY [facility] Last Admin: 08/17/17 09:13 Dose: 100 mg - Labs Labs: 08/17/17 06:48 08/17/17 06:48 PT 13.6 SECONDS (9.7-12.2) H 08/14/17 07:22 INR 1.2 08/14/17 07:22 APTT 31 SECONDS (21-34) 08/13/17 12:33 - Constitutional Appears: No Acute Distress - Head Exam Head Exam: ATRAUMATIC, NORMOCEPHALIC - Respiratory Exam Respiratory Exam: NORMAL BREATHING PATTERN - Cardiovascular Exam Cardiovascular Exam: REGULAR RHYTHM - GI/Abdominal Exam GI & Abdominal Exam: Soft, Normal Bowel Sounds. absent: Tenderness - Extremities Exam Extremities Exam: Normal Inspection Assessment and Plan (1) Alcoholic hepatitis Assessment & Plan: Monitor LFTs Counseling for long and short term mortality and morbidity to abstain from alcohol. Consider Etoh rehab?? Status: Acute (2) Anemia due to folate deficiency Status: Acute (3) Syncope Assessment & Plan: work up in progress Status: Acute (4) Abnormal transaminases Assessment & Plan: improving. Due to alcoholic hepatitis and continued alcohol abuse. Status: Acute
[2017-08-17] MEDS: Magnesium Sulfate 1 gm in D5W 1 GM/100 ML BAG IVPB SCH ×2 (10:15→10:40)
--- NOTE | 2017-08-17 11:40 | CP.PCM.DIS ---
<Tip Ivory - Last Filed: 08/17/17 15:16> Provider - Provider Date of Admission: 08/13/17 15:19 Attending physician: Denis Hayes MD Consults: Neuro - [facility] Cardio - [facility] GI - [place] Psychiatry - [place] [facility] - [place] Time Spent in preparation of Discharge (in minutes): 60 Hospital Course - Lab Results Lab Results: Micro Results 08/13/17 22:55 Blood-Venous Blood Culture - Preliminary NO GROWTH AFTER 3 DAYS 08/13/17 22:30 Blood-Venous Blood Culture - Preliminary NO GROWTH AFTER 3 DAYS 08/14/17 01:46 Urine,Clean Catch Urine Culture - Final Gram Positive Cocci Most Recent Lab Values WBC 8.1 K/uL (4.8-10.8) 08/17/17 06:48 RBC 2.64 Mil/uL (4.40-5.90) L 08/17/17 06:48 Hgb 9.4 g/dL (12.0-18.0) L 08/17/17 06:48 Hct 27.1 % (35.0-51.0) L 08/17/17 06:48 MCV 102.4 fL (80.0-94.0) H 08/17/17 06:48 MCH 35.7 pg (27.0-31.0) H 08/17/17 06:48 MCHC 34.9 g/dL (33.0-37.0) 08/17/17 06:48 RDW 17.9 % (11.5-14.5) H 08/17/17 06:48 Plt Count 180 K/uL (130-400) 08/17/17 06:48 MPV 8.8 fL (7.2-11.7) 08/17/17 06:48 Neut % (Auto) 61.8 % (50.0-75.0) 08/17/17 06:48 Lymph % (Auto) 25.1 % (20.0-40.0) 08/17/17 06:48 Lassen % (Auto) 11.6 % (0.0-10.0) H 08/17/17 06:48 Eos % (Auto) 1.0 % (0.0-4.0) 08/17/17 06:48 Baso % (Auto) 0.5 % (0.0-2.0) 08/17/17 06:48 Neut # (Auto) 5.0 K/uL (1.8-7.0) 08/17/17 06:48 Lymph # (Auto) 2.0 K/uL (1.0-4.3) 08/17/17 06:48 Lassen # (Auto) 0.9 K/uL (0.0-0.8) H 08/17/17 06:48 Eos # (Auto) 0.1 K/uL (0.0-0.7) 08/17/17 06:48 Baso # (Auto) 0.0 K/uL (0.0-0.2) 08/17/17 06:48 Retic Count 1.4 % (0.5-1.5) 08/14/17 07:22 Haptoglobin 102.9 mg/dL (30.0-200.0) 08/14/17 07:22 PT 13.6 SECONDS (9.7-12.2) H 08/14/17 07:22 INR 1.2 08/14/17 07:22 APTT 31 SECONDS (21-34) 08/13/17 12:33 Sodium 133 mmol/L (132-148) 08/17/17 06:48 Potassium 3.6 mmol/L (3.6-5.2) 08/17/17 06:48 Chloride 92 mmol/L (98-107) L 08/17/17 06:48 Carbon Dioxide 30 mmol/L (22-30) 08/17/17 06:48 Anion Gap 15 (10-20) 08/17/17 06:48 BUN 11 mg/dL (9-20) 08/17/17 06:48 Creatinine 0.7 mg/dL (0.8-1.5) L 08/17/17 06:48 Est GFR ( Amer) > 60 08/17/17 06:48 Est GFR (Non-Af Amer) > 60 08/17/17 06:48 POC Glucose (mg/dL) 116 mg/dL (65-110) H 08/15/17 06:10 Random Glucose 99 mg/dL (75-110) 08/17/17 06:48 Hemoglobin A1c 4.9 % (4.2-6.5) 08/13/17 18:49 Calcium 8.5 mg/dl (8.6-10.4) L 08/17/17 06:48 Phosphorus 3.5 mg/dL (2.5-4.5) 08/17/17 06:48 Magnesium 1.3 mg/dL (1.6-2.3) L 08/17/17 06:48 Iron 167 ug/dL (49-181) 08/13/17 18:49 TIBC 220 ug/dL (250-450) L 08/13/17 18:49 % Saturation 72 (20-55) H 08/14/17 07:22 Ferritin 3360.0 ng/mL 08/14/17 07:22 Total Bilirubin 3.6 mg/dL (0.2-1.3) H 08/17/17 06:48 Direct Bilirubin 6.7 mg/dL (0.0-0.4) H 08/13/17 18:49 AST 85 U/L (17-59) H 08/17/17 06:48 ALT 25 U/L (21-72) 08/17/17 06:48 Alkaline Phosphatase 301 U/L (38-126) H 08/17/17 06:48 Lactate Dehydrogenase 681 U/L (313-618) H 08/14/17 07:22 Total Creatine Kinase 64 U/L (55-170) 08/14/17 07:22 CK-MB (Mass) 0.61 ng/mL (0.0-3.38) 08/14/17 07:22 Troponin I < 0.0120 ng/mL (0.00-0.120) 08/14/17 07:22 NT-Pro-B Natriuret Pep 109 pg/mL (0-900) 08/13/17 12:33 Total Protein 7.0 g/dL (6.3-8.3) 08/17/17 06:48 Albumin 3.0 g/dL (3.5-5.0) L 08/17/17 06:48 Globulin 3.9 gm/dL (2.2-3.9) 08/17/17 06:48 Albumin/Globulin Ratio 0.8 (1.0-2.1) L 08/17/17 06:48 Triglycerides 142 mg/dL (0-149) 08/14/17 07:22 Cholesterol 125 mg/dL (0-199) 08/14/17 07:22 LDL Cholesterol Direct 44 mg/dL (0-129) 08/14/17 07:22 HDL Cholesterol 21 mg/dL (30-70) L 08/14/17 07:22 Vitamin B12 808 pg/mL (239-931) 08/14/17 07:22 25-OH Vitamin D Total 43.3 NG/ML (30.0-100.0) 08/14/17 07:22 Folate 2.9 ng/mL 08/14/17 07:22 Free T4 1.91 ng/dL (0.78-2.19) 08/14/17 07:22 TSH 3rd Generation 3.51 mIU/L (0.46-4.68) 08/14/17 07:22 Urine Color Yudelka (YELLOW) 08/13/17 21:30 Urine Clarity Hazy (Clear) 08/13/17 21:30 Urine pH 5.0 (5.0-8.0) 08/13/17 21:30 Ur Specific Grafton 1.025 (1.003-1.030) 08/13/17 21:30 Urine Protein 1+ mg/dL (NEGATIVE) H 08/13/17 21:30 Urine Glucose (UA) Normal mg/dL (Normal) 08/13/17 21:30 Urine Ketones 1+ mg/dL (NEGATIVE) H 08/13/17 21:30 Urine Blood Negative (NEGATIVE) 08/13/17 21:30 Urine Nitrate Negative (NEGATIVE) 08/13/17 21:30 Urine Bilirubin 2+ (NEGATIVE) H 08/13/17 21:30 Urine Urobilinogen 4.0 mg/dL (0.2-1.0) 08/13/17 21:30 Ur Leukocyte Esterase Neg Lillian/uL (Negative) 08/13/17 21:30 Urine WBC (Auto) 4 /hpf (0-5) 08/13/17 21:30 Urine RBC (Auto) 1 /hpf (0-3) 08/13/17 21:30 Ur Squamous Epith Cells < 1 /hpf (0-5) 08/13/17 21:30 Hyaline Casts 3-5 /lpf (0-2) H 08/13/17 21:30 Urine Opiates Screen Negative (NEGATIVE) 08/13/17 21:30 Urine Methadone Screen Negative (NEGATIVE) 08/13/17 21:30 Ur Barbiturates Screen Negative (NEGATIVE) 08/13/17 21:30 Ur Phencyclidine Scrn Negative (NEGATIVE) 08/13/17 21:30 Ur Amphetamines Screen Negative (NEGATIVE) 08/13/17 21:30 U Benzodiazepines Scrn Negative (NEGATIVE) 08/13/17 21:30 U Oth Cocaine Metabols Negative (NEGATIVE) 08/13/17 21:30 U Cannabinoids Screen Positive (NEGATIVE) H 08/13/17 21:30 Alcohol, Quantitative 12 mg/dl (0-10) H 08/13/17 12:33 RPR Nonreactive (NONREACTIVE) 08/14/17 07:22 Hepatitis A IgM Ab Negative (NEGATIVE) 08/14/17 07:22 Hep Bs Antigen Negative (NEGATIVE) 08/14/17 07:22 Hep Bs Antibody Negative (NEGATIVE) 08/14/17 07:22 Hep B Core IgM Ab Negative (NEGATIVE) 08/14/17 07:22 Hepatitis C Antibody Negative (NEGATIVE) 08/14/17 07:22 HIV 1&2 Antibody Screen Negative (NEGATIVE) 08/14/17 07:22 - Hospital Course Hospital Course: As per admission documentation Patient is a 62 year old with PMHx of ETOH abuse, HTN (diagnosed three years ago ), gout, hepatitis C, and spinal stenosis, presenting after syncopal episodes in his home. Pt's at bedside helping with history. Patient admits walking to bathroom this AM, and the next thing he remembers "he was on the ground." heard pt fall and found him on the ground awake, eyes open, but non- responsive for 2-3 minutes. She denies seizure-like activity or confusion when pt came to. Patient denies prodrome of palpitations, chest pain but admits frequent lightheadedness that has worsened over the last week "that makes him feel unsteady on his feet." He denies vertigo or acute changes of vision. As per EMS, pt was A&Ox3 when they arrived on scene, with BG 180. Patient A&Ox3 on arrival, c/o nausea, vomiting. Pt reports vomiting total of 3 times today, the same bilious emesis 3 times. Pt reports falling "8-10 times" in the past week, with the most recent being 3 days ago, when he also hit his head. Pt did not seek treatment after prior falls. Patient admits drinking 1 pint of Vodka "not every day, but almost every day since fci in 2004." He denies history of tremors, hallucinations, extremity weakness, numbness/tingling in his extremities, or formication. Hospital Course Patient was admitted to telemetry on 08/13/17 for syncope. Neuro consulted, Dr. Ball, for recurrent syncopal episodes. Cardio consulted, Dr. Washburn, for syncope and q waves in inferior leads. GI consulted, Dr. Zaragoza, for elevated t bili and etoh abuse. Psychiatry consulted, Dr. Bruner, for hx of alcohol abuse and depression. Radiology consulted, Dr. Murguia, for need of Cerebral Angiogram. Head: Head CT (08/13/2017): No acute intracranial abnormality. Mild chronic microangiopathic changes and moderate age-related global parenchymal volume loss. (see full report) Orbit CT (08/13/2017): No acute orbital fracture. No evidence of acute globe injury. CTA head/neck (08/14): significant calcified atherosclerotic plaque change in left cartoid bifurcation which appears to result in approximaltely 75% diameter stenosis. calcified atherosclerotic plaque also noted along the cavernous carotid segments extending superiorly into the supraclinoid segments with moderate stenosis. No evidence of occlusion of the cerebral vasculature. No evidence of large aneurysm nor vascular malformation Heart: EKG: Rate 96 bpm, NSR, Q waves in inferior leads, No ST/T wave changes Trops negative x3 Echocardiogram--> EF ~50%, mild tricuspid regurg. Mycocardial perfusion stress (08/16): no ischemic changes Liver: Abdominal US (08/14/17): mildhepatosplenomegaly with prominent common bile duct. Intraluminal gallbladder sludge however no stones are identified. Liver increased echotexture consistent with fatty infiltration however infiltrative hepatocellular disease process not excluded. * Hepatitis panel: negative * HIV: negative Urine Culture 08/14 - Gram positive cocci - patient started on rocephin on 08/16. patient reported improved of pain with urination and was discharged on macrobid for 5 more days. Psych: Patient was found to be depressed and has increased his drinking since his mother in January 2017. He was started on Lexapro 5mg PO daily. Patient does not want to stop drinking alcohol. He was open to possibly going to A.A. meetings after hearing that all of his problems are most likely secondary to his alcohol consumption. He is planning on going with his sister. Patient was found to have a macrocytic anemia on admisison. This is believed to be secondary to his long standing history of alcohol abuse. * MCV: 101.9; Hgb: 10.6 * Iron: 167, TIBC: 220, iron: 76 * folate: 2.9-->low * b12: 808 * reticulocyte count: 1.4 * Reticulocyte index: 0.58-->hypoproliferation of reticulocytes * haptoglobin: 102 Patient was stable throughout his hospital stay. It was determined that his elevated transaminases and t. bili were secondary to his alcohol abuse. No further GI was warranted. He was cleared for discharged home by Neurology and Cardiology with the following specific instructions. These instructions were told him by both Dr. Ivory and Dr. Eb Hayes individually. Both time's the patient' s was present in the room. They stated that they understood and he will follow up with the [facility] in the [facility]. Discharge Instructions Patient is to be discharged home per Dr. Denis Hayes. Patient it to follow up with his primary care physician within one week of being discharged. If he he does not have a primary care physician, he can follow up with the [facility] located in the [facility]. The phone number is [phone], please call to schedule an appointment. 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 He is to follow up with Dr. Daniel Murguia for outpatient diagnostic cerebral angiogram of the left ICA. Patient is to follow up with Dr. Rosio Bustamante (Cardiology) to have a prolonged cardiac monitoring device placed known as a loop recorder. Once patient has followed up with Dr. Murguia and Dr. Bustamante, patient is to follow up with Dr. Roe Ball (Neurology) for further evaluation of recurrent syncopal episodes. Patient is to follow up with Dr. Almita Washburn (Cardiology) within two weeks of being discharged for continued management and evaluation of recurrent syncopal episodes. It was stressed to the patient that he needs to discontinue drinking alcohol. Continuing to drink alcohol will only make these symptoms worse. He is not only doing damage to his brain but he was also found to have elevated liver enzymes, indicating damage to his liver. This are local Alcoholic Anonymous support groups located in near by [place], [place] [phone] and [place], [place] [phone]. Please call for more support in helping to quit drinking alcohol. Patient was instructed to STOP taking home medication of Amlodipine-Benazepril. Patient is to discontinue taking his home medications and start the following regiment: (Carotid Stenosis) Clopidogrel (Plavix) 75 mg PO once daily - disp #30 tabs (Carotid Stenosis) Aspirin 81 mg PO once daily - disp #30 tabs (High Blood Pressure) Amlodipine (Norvasc) 5 mg PO once daily - disp #30 tabs (High Blood Pressure) Enalapril Maleate (Vasotec) 10 mg PO once daily - disp # 30 tabs (Depression) Escitalopram (Lexapro) 5 mg PO once daily - disp #30 tabs (Alcohol Abuse) Folic Acid 1 mg PO once daily - disp #30 tabs (Alcohol Abuse) Multivitamin 1 tab PO once daily - disp #30 tabs (Alcohol Abuse) Thiamine (Vitamin B1 tab) 100 mg PO once daily - disp #30 tabs (Urinary Tract Infection) Nitrofurantoin Macrocrystals (Macrobid) 100 mg PO BID - disp #10 caps - take for 5 days. (Prophylactic Care)Saccharomyces Boulardi (Florastor) 250 mg PO BID - disp #70 caps - wait 30 minutes or more after taking antibiotic to take this medication. continue to take for 30 days after finishing antibiotic. It was stress to the patient the importance of close and consistent follow up, along with life style changes to improve these symptoms. Patient states he understands. If patient begins to experience any new or worsening symptoms, please go to the nearest emergency department. This is a brief summary of the patient's hospital course. For full detail, please see EMR. Discharge Exam - Head Exam Head Exam: ATRAUMATIC, NORMOCEPHALIC - Eye Exam Eye Exam: EOMI, Normal appearance, Scleral icterus Pupil Exam: NORMAL ACCOMODATION - ENT Exam ENT Exam: Mucous Membranes Moist - Neck Exam Additional comments: no bruits b/l - Respiratory Exam Respiratory Exam: Clear to PA & Lateral, NORMAL BREATHING PATTERN, UNREMARKABLE. absent: Accessory Muscle Use, Rales, Rhonchi, Wheezes, Respiratory Distress, Stridor - Cardiovascular Exam Cardiovascular Exam: REGULAR RHYTHM, +S1, +S2. absent: JVD - GI/Abdominal Exam GI & Abdominal Exam: Distended, Normal Bowel Sounds, Soft. absent: Firm, Guarding, Hernia, Rebound, Rigid, Tenderness - Extremities Exam Extremities exam: normal capillary refill, normal inspection, pedal pulses present - Neurological Exam Neurological exam: Alert, CN II-XII Intact, Normal Gait, Oriented x3 - Psychiatric Exam Psychiatric exam: Normal Affect, Normal Mood - Skin Skin Exam: Dry, Warm Discharge Plan - Discharge Medications Prescriptions: amLODIPine [Norvasc] 5 mg PO Q24H #30 tab Aspirin [Ecotrin] 81 mg PO DAILY #30 tabec Clopidogrel [Plavix] 75 mg PO DAILY #30 tab Enalapril Maleate [Vasotec] 10 mg PO DAILY #30 tab Escitalopram [Lexapro] 5 mg PO DAILY #30 tab Folic Acid 1 mg PO DAILY #30 tab Multivitamins [Hexavitamin] 1 tab PO DAILY #30 tab Nitrofurantoin Macrocrystals [Macrobid] 100 mg PO BID #10 cap Saccharomyces Boulardi [Florastor] 250 mg PO BID #78 cap Thiamine [Vitamin B1 Tab] 100 mg PO DAILY #30 tab - Follow Up Plan Condition: STABLE Disposition: HOME/ ROUTINE Instructions: Alcohol Use - When Is Drinking a Problem?, Heart Healthy Diet, High Blood Pressure (DC), Urinary Tract Infection, Adult (DC), Probiotics, Syncope (Fainting) (DC), Coronary Heart Disease (DC), Alcohol Abuse and Alcoholism (DC), Amlodipine, Aspirin, Clopidogrel, Enalapril, Escitalopram, Nitrofurantoin, Thiamine, Normocytic Normochromic Anemia (DC) Additional Instructions: Patient is to be discharged home per Dr. Denis Hayes. Patient it to follow up with his primary care physician within one week of being discharged. If he he does not have a primary care physician, he can follow up with the [facility] located in the [facility]. The phone number is [phone], please call to schedule an appointment. 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 He is to follow up with Dr. Daniel Murguia for outpatient diagnostic cerebral angiogram of the left ICA. Patient is to follow up with Dr. Rosio Bustamante (Cardiology) to have a prolonged cardiac monitoring device placed known as a loop recorder. Once patient has followed up with Dr. Murguia and Dr. Bustamante, patient is to follow up with Dr. Roe Ball (Neurology) for further evaluation of recurrent syncopal episodes. Patient is to follow up with Dr. Almita Washburn (Cardiology) within two weeks of being discharged for continued management and evaluation of recurrent syncopal episodes. It was stressed to the patient that he needs to discontinue drinking alcohol. Continuing to drink alcohol will only make these symptoms worse. He is not only doing damage to his brain but he was also found to have elevated liver enzymes, indicating damage to his liver. This are local Alcoholic Anonymous support groups located in [facility] by [place], [place] [phone] and [place], [place] [phone]. Please call for more support in helping to quit drinking alcohol. Patient was instructed to STOP taking home medication of Amlodipine-Benazepril. Patient is to discontinue taking his home medications and start the following regiment: (Carotid Stenosis) Clopidogrel (Plavix) 75 mg PO once daily - disp #30 tabs (Carotid Stenosis) Aspirin 81 mg PO once daily - disp #30 tabs (High Blood Pressure) Amlodipine (Norvasc) 5 mg PO once daily - disp #30 tabs (High Blood Pressure) Enalapril Maleate (Vasotec) 10 mg PO once daily - disp # 30 tabs (Depression) Escitalopram (Lexapro) 5 mg PO once daily - disp #30 tabs (Alcohol Abuse) Folic Acid 1 mg PO once daily - disp #30 tabs (Alcohol Abuse) Multivitamin 1 tab PO once daily - disp #30 tabs (Alcohol Abuse) Thiamine (Vitamin B1 tab) 100 mg PO once daily - disp #30 tabs (Urinary Tract Infection) Nitrofurantoin Macrocrystals (Macrobid) 100 mg PO BID - disp #10 caps - take for 5 days. (Prophylactic Care)Saccharomyces Boulardi (Florastor) 250 mg PO BID - disp #70 caps - wait 30 minutes or more after taking antibiotic to take this medication. continue to take for 30 days after finishing antibiotic. It was stress to the patient the importance of close and consistent follow up, along with life style changes to improve these symptoms. Patient states he understands. If patient begins to experience any new or worsening symptoms, please go to the nearest emergency department. Referrals: [facility] [Outside] Elfego Murguia MD [Staff Provider] - Rosio Bustamante MD [Staff Provider] - Roe Ball MD [Staff Provider] - Almita Washburn MD [Staff Provider] - <Denis Hayes - Last Filed: 08/17/17 19:48> Provider - Provider Date of Admission: 08/13/17 15:19 Attending physician: Denis Hayes MD Hospital Course - Lab Results Lab Results: Micro Results 08/13/17 22:55 Blood-Venous Blood Culture - Preliminary NO GROWTH AFTER 3 DAYS 08/13/17 22:30 Blood-Venous Blood Culture - Preliminary NO GROWTH AFTER 3 DAYS 08/14/17 01:46 Urine,Clean Catch Urine Culture - Final Gram Positive Cocci Most Recent Lab Values WBC 8.1 K/uL (4.8-10.8) 08/17/17 06:48 RBC 2.64 Mil/uL (4.40-5.90) L 08/17/17 06:48 Hgb 9.4 g/dL (12.0-18.0) L 08/17/17 06:48 Hct 27.1 % (35.0-51.0) L 08/17/17 06:48 MCV 102.4 fL (80.0-94.0) H 08/17/17 06:48 MCH 35.7 pg (27.0-31.0) H 08/17/17 06:48 MCHC 34.9 g/dL (33.0-37.0) 08/17/17 06:48 RDW 17.9 % (11.5-14.5) H 08/17/17 06:48 Plt Count 180 K/uL (130-400) 08/17/17 06:48 MPV 8.8 fL (7.2-11.7) 08/17/17 06:48 Neut % (Auto) 61.8 % (50.0-75.0) 08/17/17 06:48 Lymph % (Auto) 25.1 % (20.0-40.0) 08/17/17 06:48 Lassen % (Auto) 11.6 % (0.0-10.0) H 08/17/17 06:48 Eos % (Auto) 1.0 % (0.0-4.0) 08/17/17 06:48 Baso % (Auto) 0.5 % (0.0-2.0) 08/17/17 06:48 Neut # (Auto) 5.0 K/uL (1.8-7.0) 08/17/17 06:48 Lymph # (Auto) 2.0 K/uL (1.0-4.3) 08/17/17 06:48 Lassen # (Auto) 0.9 K/uL (0.0-0.8) H 08/17/17 06:48 Eos # (Auto) 0.1 K/uL (0.0-0.7) 08/17/17 06:48 Baso # (Auto) 0.0 K/uL (0.0-0.2) 08/17/17 06:48 Retic Count 1.4 % (0.5-1.5) 08/14/17 07:22 Haptoglobin 102.9 mg/dL (30.0-200.0) 08/14/17 07:22 PT 13.6 SECONDS (9.7-12.2) H 08/14/17 07:22 INR 1.2 08/14/17 07:22 APTT 31 SECONDS (21-34) 08/13/17 12:33 Sodium 133 mmol/L (132-148) 08/17/17 06:48 Potassium 3.6 mmol/L (3.6-5.2) 08/17/17 06:48 Chloride 92 mmol/L (98-107) L 08/17/17 06:48 Carbon Dioxide 30 mmol/L (22-30) 08/17/17 06:48 Anion Gap 15 (10-20) 08/17/17 06:48 BUN 11 mg/dL (9-20) 08/17/17 06:48 Creatinine 0.7 mg/dL (0.8-1.5) L 08/17/17 06:48 Est GFR ( Amer) > 60 08/17/17 06:48 Est GFR (Non-Af Amer) > 60 08/17/17 06:48 POC Glucose (mg/dL) 116 mg/dL (65-110) H 08/15/17 06:10 Random Glucose 99 mg/dL (75-110) 08/17/17 06:48 Hemoglobin A1c 4.9 % (4.2-6.5) 08/13/17 18:49 Calcium 8.5 mg/dl (8.6-10.4) L 08/17/17 06:48 Phosphorus 3.5 mg/dL (2.5-4.5) 08/17/17 06:48 Magnesium 1.3 mg/dL (1.6-2.3) L 08/17/17 06:48 Iron 167 ug/dL (49-181) 08/13/17 18:49 TIBC 220 ug/dL (250-450) L 08/13/17 18:49 % Saturation 72 (20-55) H 08/14/17 07:22 Ferritin 3360.0 ng/mL 08/14/17 07:22 Total Bilirubin 3.6 mg/dL (0.2-1.3) H 08/17/17 06:48 Direct Bilirubin 6.7 mg/dL (0.0-0.4) H 08/13/17 18:49 AST 85 U/L (17-59) H 08/17/17 06:48 ALT 25 U/L (21-72) 08/17/17 06:48 Alkaline Phosphatase 301 U/L (38-126) H 08/17/17 06:48 Lactate Dehydrogenase 681 U/L (313-618) H 08/14/17 07:22 Total Creatine Kinase 64 U/L (55-170) 08/14/17 07:22 CK-MB (Mass) 0.61 ng/mL (0.0-3.38) 08/14/17 07:22 Troponin I < 0.0120 ng/mL (0.00-0.120) 08/14/17 07:22 NT-Pro-B Natriuret Pep 109 pg/mL (0-900) 08/13/17 12:33 Total Protein 7.0 g/dL (6.3-8.3) 08/17/17 06:48 Albumin 3.0 g/dL (3.5-5.0) L 08/17/17 06:48 Globulin 3.9 gm/dL (2.2-3.9) 08/17/17 06:48 Albumin/Globulin Ratio 0.8 (1.0-2.1) L 08/17/17 06:48 Triglycerides 142 mg/dL (0-149) 08/14/17 07:22 Cholesterol 125 mg/dL (0-199) 08/14/17 07:22 LDL Cholesterol Direct 44 mg/dL (0-129) 08/14/17 07:22 HDL Cholesterol 21 mg/dL (30-70) L 08/14/17 07:22 Vitamin B12 808 pg/mL (239-931) 08/14/17 07:22 25-OH Vitamin D Total 43.3 NG/ML (30.0-100.0) 08/14/17 07:22 Folate 2.9 ng/mL 08/14/17 07:22 Free T4 1.91 ng/dL (0.78-2.19) 08/14/17 07:22 TSH 3rd Generation 3.51 mIU/L (0.46-4.68) 08/14/17 07:22 Urine Color Yudelka (YELLOW) 08/13/17 21:30 Urine Clarity Hazy (Clear) 08/13/17 21:30 Urine pH 5.0 (5.0-8.0) 08/13/17 21:30 Ur Specific Grafton 1.025 (1.003-1.030) 08/13/17 21:30 Urine Protein 1+ mg/dL (NEGATIVE) H 08/13/17 21:30 Urine Glucose (UA) Normal mg/dL (Normal) 08/13/17 21:30 Urine Ketones 1+ mg/dL (NEGATIVE) H 08/13/17 21:30 Urine Blood Negative (NEGATIVE) 08/13/17 21:30 Urine Nitrate Negative (NEGATIVE) 08/13/17 21:30 Urine Bilirubin 2+ (NEGATIVE) H 08/13/17 21:30 Urine Urobilinogen 4.0 mg/dL (0.2-1.0) 08/13/17 21:30 Ur Leukocyte Esterase Neg Lillian/uL (Negative) 08/13/17 21:30 Urine WBC (Auto) 4 /hpf (0-5) 08/13/17 21:30 Urine RBC (Auto) 1 /hpf (0-3) 08/13/17 21:30 Ur Squamous Epith Cells < 1 /hpf (0-5) 08/13/17 21:30 Hyaline Casts 3-5 /lpf (0-2) H 08/13/17 21:30 Urine Opiates Screen Negative (NEGATIVE) 08/13/17 21:30 Urine Methadone Screen Negative (NEGATIVE) 08/13/17 21:30 Ur Barbiturates Screen Negative (NEGATIVE) 08/13/17 21:30 Ur Phencyclidine Scrn Negative (NEGATIVE) 08/13/17 21:30 Ur Amphetamines Screen Negative (NEGATIVE) 08/13/17 21:30 U Benzodiazepines Scrn Negative (NEGATIVE) 08/13/17 21:30 U Oth Cocaine Metabols Negative (NEGATIVE) 08/13/17 21:30 U Cannabinoids Screen Positive (NEGATIVE) H 08/13/17 21:30 Alcohol, Quantitative 12 mg/dl (0-10) H 08/13/17 12:33 RPR Nonreactive (NONREACTIVE) 08/14/17 07:22 Hepatitis A IgM Ab Negative (NEGATIVE) 08/14/17 07:22 Hep Bs Antigen Negative (NEGATIVE) 08/14/17 07:22 Hep Bs Antibody Negative (NEGATIVE) 08/14/17 07:22 Hep B Core IgM Ab Negative (NEGATIVE) 08/14/17 07:22 Hepatitis C Antibody Negative (NEGATIVE) 08/14/17 07:22 HIV 1&2 Antibody Screen Negative (NEGATIVE) 08/14/17 07:22 Attending/Attestation - Attestation I have personally seen and examined this patient.: Yes I have fully participated in the care of the patient.: Yes I have reviewed all pertinent clinical information, including history, physical exam and plan: Yes Notes (Text): 08/17/17 19:47 Patient was seen and examined shortly after the resident. Exam, assessment and plan, discharge instructions were gone over with the resident and the patient and his . Extensive conversation with the patient and the about the dangers of continuing to drink alcohol. Stressed going to AA meetings. Denis Hayes D.O.
[2017-08-17 13:13] VITALS: PULSE 78
--- NOTE | 2017-08-18 19:00 | EEG ---
DATE: Technical Information: Electrodes were placed according to the 10-20 International electrode system by computed tomography technologist. Total of 23 electrodes (21 EEG and 2 EKG) were placed. EEG activity was digitally recorded referentially to P1/P2 or A1/A2 electrodes. Continuous monitoring with EEG was performed using digital analysis for spike detection. The ZMP spike and seizure detection algorithms were used for digital EEG analysis throughout the monitoring period to screen the EEG in real-time and oneyda the data file with pointers to electrographic seizures and interictal discharges. EEG was screened for electrographic seizures and interictal discharges by a technologist. Physician, epileptologist reviewed detections as well as extensive random samples and whole EEG study in detail. Digital EEG Analysis: Was carried out including FFT (Fast Fourier Transform), R2D2 (Rhythmicity Run Detection and Display), Relative Asymmetry Spectrogram, and voltage plot by the [employer] Software. The qualitative EEG analysis and the voltage plot mapping were used for detection of foci of paroxysmal and abnormal electrical cortical activity. General Description: Background Rhythm: There is a well-formed, 8-10 Hz posterior dominant rhythm that is reactive, symmetric, and attenuates with eye opening. There was a normal amount of frontal beta noted bilaterally. There is no sleep recorded. Activation Procedures: Photic stimulation: There is no driving noted. Hyperventilation: There is slowing noted that is self-remitted. Abnormal Activity: There are no focal epileptiform discharges noted. No clinical or subclinical seizures noted. Impression: This is a normal awake and drowsy EEG. Clinical correlation is required. Laurel John MD
== END 2017-08-17 13:15 | disposition home or self-care (01) | DRG 434 ==
LOC: C.ER 11:24 → C.9E 15:19 → C.6T 15:42
PROVIDERS: ADMIT Family Medicine; ATTEND Family Medicine
DX: K70.10 Alcoholic hepatitis without ascites (principal); F10.20 Alcohol dependence, uncomplicated; D53.9 Nutritional anemia, unspecified; E53.8 Deficiency of other specified B group vitamins; E78.00 Pure hypercholesterolemia, unspecified; F32.9 Major depressive disorder, single episode, unspecified; F41.9 Anxiety disorder, unspecified; I10 Essential (primary) hypertension; I25.10 Atherosclerotic heart disease of native coronary artery without angina pectoris; I67.2 Cerebral atherosclerosis; I65.22 Occlusion and stenosis of left carotid artery; R82.71 Bacteriuria; B96.89 Other specified bacterial agents as the cause of diseases classified elsewhere; I25.2 Old myocardial infarction; R29.6 Repeated falls; S00.03XA Contusion of scalp, initial encounter; Y90.0 Blood alcohol level of less than 20 mg/100 ml; Z79.82 Long term (current) use of aspirin; Z83.3 Family history of diabetes mellitus; Z87.891 Personal history of nicotine dependence; Z91.19 Patient's noncompliance with other medical treatment and regimen; Z91.81 History of falling

== ENCOUNTER 2017-08-19 20:08 | Inpatient (IN) | payer BC ==
--- NOTE | 2017-08-19 20:23 | C.PDOC ---
History Of Present Illness Patient presents to the ER after having another syncopal episode while walking room to room when noticed him collapse with a few seconds worth of LOC [facility] ; denies any seizure like activity. Patient was recently admitted recently for similar complaints and had a fairly extensive work up. Patient does not remember the event, denies chest pain, palpitations, SOB, or drinking since last week. Time Seen by Provider: 08/19/17 20:22 History Per: Patient, Family History/Exam Limitations: no limitations Onset/Duration Of Symptoms: Hrs Current Symptoms Are (Timing): Still Present Severity: Mild Pain Scale Rating Of: 4 Reports Recently: Hospitalized Recent travel outside of the [place]: No Past Medical History Reviewed: Historical Data, Nursing Documentation, Vital Signs Vital Signs: Last Vital Signs Temp 98 F 08/19/17 20:26 Pulse 85 08/19/17 20:26 Resp 20 08/19/17 20:26 BP 112/72 08/19/17 20:26 Pulse Ox 97 08/19/17 22:16 - Medical History PMH: HTN, Hypercholesterolemia Family History: States: No Known Family Hx - Social History Hx Alcohol Use: Yes Hx Substance Use: No - Immunization History Hx Tetanus Toxoid Vaccination: No Hx Influenza Vaccination: No Hx Pneumococcal Vaccination: No Review Of Systems Constitutional: Negative for: Fever, Chills Eyes: Negative for: Vision Change Cardiovascular: Negative for: Chest Pain, Palpitations Respiratory: Negative for: Shortness of Breath Gastrointestinal: Negative for: Nausea, Vomiting Genitourinary: Negative for: Dysuria Musculoskeletal: Negative for: Back Pain Skin: Negative for: Rash Neurological: Positive for: Other (Syncope). Negative for: Seizures Psych: Negative for: Anxiety Physical Exam - Physical Exam Appears: Non-toxic Skin: Warm, Dry Head: Normacephalic, Abrasion (Old to left forehead) Eye(s): bilateral: Scleral Icterus (Slightly) Oral Mucosa: Moist Neck: Trachea Midline, Supple Chest: Symmetrical, No Tenderness Cardiovascular: Rhythm Regular Respiratory: No Rales, No Rhonchi, No Wheezing Gastrointestinal/Abdominal: Soft, No Tenderness Back: No CVA Tenderness Extremity: Normal ROM Extremity: Bilateral: Atraumatic Pulses: Left Dorsalis Pedis: Normal, Right Dorsalis Pedis: Normal Neurological/Psych: Oriented x3, Normal Speech Gait: Unsteady ED Course And Treatment - Laboratory Results Result Diagrams: 08/19/17 20:42 08/19/17 20:42 ECG: Interpreted By Me, Viewed By Me ECG Rhythm: Sinus Rhythm (70), Nonspecific Changes O2 Sat by Pulse Oximetry: 97 Pulse Ox Interpretation: Normal Progress Note: CT head, CXR, EKG, blood work, and urinalysis ordered. IV fluids administered. Disposition Discussed With Dr.: Sanford Holman Comment: accepted the pt on his service and took over the care at 10:53 PM Doctor Will See Patient In The: ED Counseled Patient/Family Regarding: Studies Performed, Diagnosis - Disposition Disposition: HOSPITALIZED Disposition Time: 20:23 Condition: FAIR - POA Present On Arrival: Falls Or Trauma - Clinical Impression Clinical Impression: Syncope - Scribe Statement The provider has reviewed the documentation as recorded by the Scribe Garry Oden All medical record entries made by the Scribe were at my direction and personally dictated by me. I have reviewed the chart and agree that the record accurately reflects my personal performance of the history, physical exam, medical decision making, and the department course for this patient. I have also personally directed, reviewed, and agree with the discharge instructions and disposition. Decision To Admit - Pt Status Changed To: Hospital Disposition Of: Observation - . Bed Request Type: Telemetry Admitting Physician: Sanford Holman Patient Diagnosis: Syncope
[2017-08-19 20:31] VITALS: RESP 20
[2017-08-19 20:51] LABS: BASO # 0.2 K/uL (0.0-0.2); BASO % 1.6 % (0.0-2.0); EOS % 0.4 % (0.0-4.0); HEMOGLOBIN 10.3 g/dL (12.0-18.0); LYMPH # 2.3 K/uL (1.0-4.3); LYMPH % 20.5 % (20.0-40.0); MEAN CELL VOLUME 102.4 fL (80.0-94.0); MEAN CORPUSCULAR HGB CONC 34.1 g/dL (33.0-37.0); MEAN PLATELET VOLUME 9.3 fL (7.2-11.7); MONO # 1.1 K/uL (0.0-0.8); MONO % 9.8 % (0.0-10.0); NEUT # 7.5 K/uL (1.8-7.0); NEUT % 67.7 % (50.0-75.0); RBC 2.95 Mil/uL (4.40-5.90); RED CELL DISTRIBUTION WIDTH 17.3 % (11.5-14.5); WHITE BLOOD COUNT 11.1 K/uL (4.8-10.8)
[2017-08-19 21:01] LABS: INR 1.3; PROTHROMBIN TIME 14.1 SECONDS (9.7-12.2)
[2017-08-19] MEDS: Sodium Chloride 0.9% 1,000 ML IV SCH (21:05)
[2017-08-19 21:09] LABS: ALB/GLOB RATIO 0.8 (1.0-2.1); ALBUMIN 3.6 g/dL (3.5-5.0); ALT/SGPT 38 U/L (21-72); AST/SGOT 98 U/L (17-59); BLOOD UREA NITROGEN 18 mg/dL (9-20); CALCIUM 8.9 mg/dl (8.6-10.4); GFR AFRICAN-AMERICAN > 60; GFR NON-AFRICAN AMERICAN > 60; LIPASE 502 U/L (23-300)
--- NOTE | 2017-08-19 21:59 | CT ---
EXAM: CT Head Without Intravenous Contrast EXAM DATE/TIME: Exam ordered 08/19/2017 8:33 PM CLINICAL HISTORY: 62 years old, male; Injury or trauma; Fall; Initial encounter; Abrasion; Forehead; Additional info: R/O bleed TECHNIQUE: Axial computed tomography images of the head/brain without intravenous contrast. All CT scans at this facility use one or more dose reduction techniques, viz.: automated exposure control; ma/kV adjustment per patient size (including targeted exams where dose is matched to indication; i.e. head); or iterative reconstruction technique. Coronal and sagittal reformatted images were created and reviewed. COMPARISON: CT - HEAD W/O CONTRAST 2017-08-14 09:29 FINDINGS: Brain: There is moderate generalized cortical atrophy. Low density is seen in the periventricular white matter extending into the barcenas radiata and the centrum semiovale bilaterally. No hemorrhage. Ventricles: Unremarkable. No ventriculomegaly. Bones/joints: Unremarkable. No acute fracture. Soft tissues: Unremarkable Sinuses: Unremarkable as visualized. No acute sinusitis. Mastoid air cells: Unremarkable as visualized. No mastoid effusion. IMPRESSION: 1. No acute findings. 2. Chronic microvascular ischemic change in the deep white matter. 3. Moderate generalized cortical atrophy.
--- NOTE | 2017-08-19 23:35 | CP.PCM.HP ---
<Jennifer Pate - Last Filed: 08/20/17 01:06> History of Present Illness - History of Present Illness History of Present Illness: CC: "syncope" HPI: 62 year old male with past medical history of HTN, EtOH abuse, spinal stenosis and gout presents to the ER for syncope. Patient states after being discharged on Wednesday for similar symptoms he has had a few syncopal episodes. Today he has had 3 episodes where he just all of a sudden collapses. He denies feeling lightheaded, dizzy, or changes of vision. He states these events happen randomly and are not triggered by a specific event. He states he is usually passed out for a few minutes. Patient states his last drink was last Wednesday08/13/17. Patient denies chest pain, palpitations, shortness of breath, nausea, vomiting, diarrhea or constipation. PMD: denies Past Medical History: HTN, EtOH abuse, spinal stenosis and gout (once per year) Past Surgical History: umbilical hernia repair (2001) Family History: mom - diabetes Medications: Allergies: NKDA Social History: Lives with ; quit smoking 8 years ago; used to smoke about 1.5 ppd (cigarettes) x 30 yrs; 1 pint of VODKA nearly daily x 13 years (last drink was last Wednesday08/13/17); Marijuana (one to two blunts during the week); Retired [employer] (2004) Present on Admission - Present on Admission Any Indicators Present on Admission: No Review of Systems - Constitutional Constitutional: absent: Chills, Fever - EENT Eyes: absent: Blurred Vision, Change in Vision - Cardiovascular Cardiovascular: Syncope. absent: Chest Pain, Dyspnea, Leg Edema, Palpitations, Pedal Edema - Respiratory Respiratory: absent: Dyspnea - Gastrointestinal Gastrointestinal: absent: Constipation, Diarrhea, Nausea, Vomiting - Musculoskeletal Musculoskeletal: absent: Numbness, Tingling - Neurological Neurological: Syncope. absent: Dizziness, Headaches, Vertigo, Weakness Past Patient History - Past Medical History & Family History Past Medical History?: Yes - Past Social History Smoking Status: Former Smoker - CARDIAC Hx Hypercholesterolemia: Yes Hx Hypertension: Yes - PULMONARY Hx Respiratory Disorders: No - NEUROLOGICAL Hx Neurological Disorder: No - HEENT Hx HEENT Problems: No - RENAL Hx Chronic Kidney Disease: No - ENDOCRINE/METABOLIC Hx Endocrine Disorders: No - HEMATOLOGICAL/ONCOLOGICAL Hx Blood Disorders: No - INTEGUMENTARY Hx Dermatological Problems: No - MUSCULOSKELETAL/RHEUMATOLOGICAL Hx Falls: Yes Hx Gout: Yes - GASTROINTESTINAL Hx Gastrointestinal Disorders: No - GENITOURINARY/GYNECOLOGICAL Hx Genitourinary Disorders: No - PSYCHIATRIC Hx Substance Use: No - SURGICAL HISTORY Hx Herniorrhaphy: Yes - ANESTHESIA Hx Anesthesia: Yes Hx Anesthesia Reactions: No Meds Allergies/Adverse Reactions: Allergies Allergy/AdvReac Type Severity Reaction Status Date / Time No Known Allergies Allergy Unverified 08/13/17 11:47 Physical Exam - Constitutional Appears: Non-toxic, No Acute Distress - Head Exam Head Exam: ATRAUMATIC, NORMAL INSPECTION - Eye Exam Eye Exam: EOMI, PERRL, Scleral icterus Pupil Exam: NORMAL ACCOMODATION - ENT Exam ENT Exam: Mucous Membranes Moist - Respiratory Exam Respiratory Exam: Clear to Auscultation Bilateral, NORMAL BREATHING PATTERN - Cardiovascular Exam Cardiovascular Exam: REGULAR RHYTHM, RRR, +S1, +S2 Additional comments: gynecomastia - GI/Abdominal Exam GI & Abdominal Exam: Normal Bowel Sounds, Soft. absent: Tenderness - Extremities Exam Extremities exam: Positive for: normal inspection. Negative for: pedal edema, tenderness - Neurological Exam Neurological exam: Alert, CN II-XII Intact, Oriented x3 - Expanded Neurological Exam Expanded Patient oriented to: person, place, time Cerebellar Function: Finger to Nose: Normal, Heel to Miller: Normal Sensory exam: Lower Extremity Light Touch: Normal, Upper Extremity Light Touch: Normal Neuro motor strength exam: Left Upper Extremity: 5, Right Upper Extremity: 5, Left Lower Extremity: 5, Right Lower Extremity: 5 Coma Scale Eye Opening: SPONTANEOUS Coma Scale Motor Response: OBEYS COMMANDS - Psychiatric Exam Psychiatric exam: Normal Affect, Normal Mood - Skin Skin Exam: Dry, Normal Color Additional comments: spider angiomas; jaundice Results - Vital Signs Recent Vital Signs: Last Vital Signs Temp 98 F 08/19/17 20:26 Pulse 85 08/19/17 20:26 Resp 20 08/19/17 20:26 BP 112/72 08/19/17 20:26 Pulse Ox 97 08/19/17 22:54 - Labs Result Diagrams: 08/19/17 20:42 08/19/17 20:42 Labs: Laboratory Results - last 24 hr 08/19/17 08/19/17 08/19/17 20:42 20:42 20:42 WBC 11.1 H RBC 2.95 L Hgb 10.3 L Hct 30.2 L MCV 102.4 H MCH 35.0 H MCHC 34.1 RDW 17.3 H Plt Count 291 D MPV 9.3 Neut % (Auto) 67.7 Lymph % (Auto) 20.5 [place] % (Auto) 9.8 Eos % (Auto) 0.4 Baso % (Auto) 1.6 Neut # (Auto) 7.5 H Lymph # (Auto) 2.3 [place] # (Auto) 1.1 H Eos # (Auto) 0.0 Baso # (Auto) 0.2 PT 14.1 H INR 1.3 APTT 33 Sodium 132 Potassium 4.1 Chloride 92 L Carbon Dioxide 25 Anion Gap 19 BUN 18 Creatinine 0.9 Est GFR ( Amer) > 60 Est GFR (Non-Af Amer) > 60 Random Glucose 133 H Calcium 8.9 Magnesium 1.1 L Total Bilirubin 4.3 H AST 98 H ALT 38 Alkaline Phosphatase 333 H Troponin I < 0.0120 Total Protein 8.4 H Albumin 3.6 Globulin 4.8 H Albumin/Globulin Ratio 0.8 L Lipase 502 H Assessment & Plan - Assessment and Plan (Free Text) Assessment: Recurrent Syncope - Admit to telemetry * Etiologies to exclude: new medications, arrhythmia, alcoholism, electrolyte imbalance - Echo (08/13/17): EF ~50%, mild tricuspid regurg. - Head CT (08/19/17): No acute findings. Chronic microvascular ischemic change in the deep white matter. Moderate generalized cortical atrophy. - CTA head/neck (08/14): significant calcified atherosclerotic plaque change in left cartoid bifurcation which appears to result in approximaltely 75% diameter stenosis. calcified atherosclerotic plaque also noted along the cavernous carotid segments extending superiorly into the supraclinoid segments with moderate stenosis. No evidence of occlusion of the cerebral vasculature. No evidence of large aneurysm nor vascular malformation - EKG: Rate 70bmp NSR - f/u Urine drug screen - f/u alcohol serum - orthostatic vitals q6h - NS @ 100cc/hr - TSH: 3.51, Free T4: 1.91 UTI - Previous admission Urine Culture - Gram positive cocci * Continue Macrobid 100mg bid (last dose Wednesday08/22/17) Hyperbilirubinemia/Transaminitis/ETOH Abuse/History of Hepatitis/Jaundice - Elevated total bilirubin 4.3 * Abdominal US (08/14/17): mildhepatosplenomegaly with prominent common bile duct. Intraluminal gallbladder sludge however no stones are identified. Liver increased echotexture consistent with fatty infiltration however infiltrative hepatocellular disease process not excluded. - Hepatitis: negative - HIV: negative Macrocytic Anemia Secondary to long history of alcohol abuse - MCV: 102.4; Hgb: 10.3 - Iron Studies done 08/13/17 admission: * Iron: 167, TIBC: 220, iron: 76 * folate: 2.9-->low * b12: 808 * reticulocyte count: 1.4 * Reticulocyte index: 0.58-->hypoproliferation of reticulocytes * haptoglobin: 102 History of EtOH abuse * Multivitamin 1 tab PO daily * Thiamine 100mg PO daily * Folic Acid 1mg PO daily - Monitor on telemetry Electrolyte abnormality - Monitor Mg2+ * Mg2+ repleted Leukocytosis - WBC 11.1, pt afebrile * Monitor * f/u Chest xray Hypertension Medications are currently on hold: * Norvasc 5mg PO daily * Enalapril 10mg PO daily * Aspirin 81mg PO daily A1C: 4.9 Lipid panel: T, Cholesterol: 125, LDL 44, HDL: 21 Tobacco cessation Alcohol Cessation - Patient states he has not had a drink since Wednesday08/13/17 - Strongly counselled at bedside on admission Prophylaxis - Pepcid 20mg po bid - Heparin 5000 units subq Q12H - PT eval and treat Case discussed with Dr. River Pate PGY-1 <Sanford Holman P - Last Filed: 08/20/17 06:53> Results - Vital Signs Recent Vital Signs: Last Vital Signs Temp 97.4 F L 08/20/17 04:15 Pulse 73 08/20/17 05:50 Resp 20 08/20/17 05:50 BP 133/75 08/20/17 04:15 Pulse Ox 98 08/20/17 05:50 - Labs Result Diagrams: 08/19/17 20:42 08/19/17 20:42 Labs: Laboratory Results - last 24 hr 08/19/17 08/19/17 08/19/17 20:42 20:42 20:42 WBC 11.1 H RBC 2.95 L Hgb 10.3 L Hct 30.2 L MCV 102.4 H MCH 35.0 H MCHC 34.1 RDW 17.3 H Plt Count 291 D MPV 9.3 Neut % (Auto) 67.7 Lymph % (Auto) 20.5 [place] % (Auto) 9.8 Eos % (Auto) 0.4 Baso % (Auto) 1.6 Neut # (Auto) 7.5 H Lymph # (Auto) 2.3 [place] # (Auto) 1.1 H Eos # (Auto) 0.0 Baso # (Auto) 0.2 PT 14.1 H INR 1.3 APTT 33 Sodium 132 Potassium 4.1 Chloride 92 L Carbon Dioxide 25 Anion Gap 19 BUN 18 Creatinine 0.9 Est GFR ( Amer) > 60 Est GFR (Non-Af Amer) > 60 Random Glucose 133 H Calcium 8.9 Magnesium 1.1 L Total Bilirubin 4.3 H AST 98 H ALT 38 Alkaline Phosphatase 333 H Troponin I < 0.0120 Total Protein 8.4 H Albumin 3.6 Globulin 4.8 H Albumin/Globulin Ratio 0.8 L Lipase 502 H Urine Color Urine Clarity Urine pH Ur Specific [place] Urine Protein Urine Glucose (UA) Urine Ketones Urine Blood Urine Nitrate Urine Bilirubin Urine Urobilinogen Ur Leukocyte Esterase Urine WBC (Auto) Urine RBC (Auto) Ur Squamous Epith Cells Hyaline Casts Urine Opiates Screen Urine Methadone Screen Ur Barbiturates Screen Ur Phencyclidine Scrn Ur Amphetamines Screen U Benzodiazepines Scrn U Oth Cocaine Metabols U Cannabinoids Screen Alcohol, Quantitative 08/20/17 08/20/17 08/20/17 01:14 01:14 01:14 WBC RBC Hgb Hct MCV MCH MCHC RDW Plt Count MPV Neut % (Auto) Lymph % (Auto) [place] % (Auto) Eos % (Auto) Baso % (Auto) Neut # (Auto) Lymph # (Auto) [place] # (Auto) Eos # (Auto) Baso # (Auto) PT INR APTT Sodium Potassium Chloride Carbon Dioxide Anion Gap BUN Creatinine Est GFR ( Amer) Est GFR (Non-Af Amer) Random Glucose Calcium Magnesium Total Bilirubin AST ALT Alkaline Phosphatase Troponin I Total Protein Albumin Globulin Albumin/Globulin Ratio Lipase Urine Color [place] Urine Clarity Hazy Urine pH 5.0 Ur Specific [place] 1.024 Urine Protein 1+ H Urine Glucose (UA) Normal Urine Ketones Negative Urine Blood 1+ H Urine Nitrate Negative Urine Bilirubin 1+ H Urine Urobilinogen 4.0 Ur Leukocyte Esterase Neg Urine WBC (Auto) 6 H Urine RBC (Auto) 4 H Ur Squamous Epith Cells 5 Hyaline Casts 6-10 H Urine Opiates Screen Negative Urine Methadone Screen Negative Ur Barbiturates Screen Negative Ur Phencyclidine Scrn Negative Ur Amphetamines Screen Negative U Benzodiazepines Scrn Negative U Oth Cocaine Metabols Negative U Cannabinoids Screen Positive H Alcohol, Quantitative < 10 Attending/Attestation - Attestation I have personally seen and examined this patient.: Yes I have fully participated in the care of the patient.: Yes I have reviewed all pertinent clinical information: Yes Notes (Text): Recurrent syncopal episodes abut 1/day prior to last admission and 5 since last discharge, w/u negative except 70% left carotid obstruction, alcoholic hepatitis and advanced liver disease with gynecomastia, spider veins, jaundice, ataxic wide base gait, not drinking since last admission. Patient has stopped drinking from last admission. Syncopal episode mainly when patient is standing and walking not during sitting or laying, highly suspicious for orthostatic related bp changes. Change in diastolic 10 on form 76 to 66 from lying to standing. Plan IVF NS 100ml/hr Stop BP meds especially any new meds i.e. norvasc and enalpril MRA could be done to check severity of the left carotid stenosis Recommend single antiplatelet agent rather 2 due to recurrent falls advanced liver disease.
[2017-08-20] MEDS: Magnesium Sulfate 1 gm in D5W 1 GM/100 ML BAG IVPB SCH ×2 (01:20→02:23)
[2017-08-20 01:27] LABS: SQUAMOUS EPITHIAL 5 /hpf (0-5); URINE BILIRUBIN 1+ (NEGATIVE); URINE BLOOD 1+ (NEGATIVE); URINE CLARITY Hazy (Clear); URINE COLOR Amber (YELLOW); URINE GLUCOSE (UA) NORMAL (Normal); URINE LEUKOCYTE ESTERASE NEG Leu/uL (Negative); URINE PROTEIN 1+ mg/dL (NEGATIVE)
[2017-08-20 01:38] LABS: BARBITURATES, UR NEGATIVE (NEGATIVE); BENZODIAZEPINES, UR NEGATIVE (NEGATIVE); OPIATES, UR NEGATIVE (NEGATIVE); PHENCYCLIDINE, UR NEGATIVE (NEGATIVE)
[2017-08-20] MEDS: Sodium Chloride 0.9% 1,000 ML IV SCH ×2 (07:39→20:17)
--- NOTE | 2017-08-20 08:35 | RAD ---
Chest x-ray single frontal view History: Shortness of breath. Comparison: 08/13/2017 Findings: Mild venous congestion. Mild patchy increased markings at the lung bases. Calcification at the aortic knob. Mild cardiomegaly. Degenerative changes in the spine and shoulders. Impression: Mild venous congestion. Mild patchy increased markings at the lung bases. Calcification at the aortic knob. Mild cardiomegaly.
[2017-08-20] MEDS: Saccharomyces Boulardi 250 mg Cap PO SCH (10:04)
[2017-08-20] MEDS: Multiple Vitamins Tab PO SCH (10:05)
--- NOTE | 2017-08-20 12:40 | CP.PCM.CON ---
History of Present Illness - History of Present Illness History of Present Illness: NEURO-IR CONSULTATION The patient is a 62 year old male with a PMH significant for HTN, ETOH abuse, spinal stenosis and gout. The patient presented to the ER for a syncopla episode. CTA from 08/13/17 showed left ICA bifurcation stenosis of 75%, and moderate intracranial ICA disease. The patient denies any episodes of unulateral weakness or of unilateral visual obfuscation consistent with a hemispheric or retinal ischemic event. The patient is orhtostatic with a 20 point change in SBP done by the medical team as per Dr. Shagufta Hayes (one on once this am). Review of Systems - EENT Eyes: As Per HPI - Cardiovascular Cardiovascular: As Per HPI - Respiratory Respiratory: As Per HPI - Musculoskeletal Musculoskeletal: As Per HPI - Neurological Additional comments: comlains of LOC - Psychiatric Psychiatric: As Per HPI Past Patient History - Past Medical History & Family History Past Medical History?: Yes - Past Social History Smoking Status: Former Smoker - CARDIAC Hx Hypercholesterolemia: Yes Hx Hypertension: Yes - PULMONARY Hx Respiratory Disorders: No - NEUROLOGICAL Hx Neurological Disorder: No - HEENT Hx HEENT Problems: No - RENAL Hx Chronic Kidney Disease: No - ENDOCRINE/METABOLIC Hx Endocrine Disorders: No - HEMATOLOGICAL/ONCOLOGICAL Hx Blood Disorders: No - INTEGUMENTARY Hx Dermatological Problems: No - MUSCULOSKELETAL/RHEUMATOLOGICAL Hx Falls: Yes Hx Gout: Yes - GASTROINTESTINAL Hx Gastrointestinal Disorders: No - GENITOURINARY/GYNECOLOGICAL Hx Genitourinary Disorders: No - PSYCHIATRIC Hx Substance Use: No - SURGICAL HISTORY Hx Herniorrhaphy: Yes - ANESTHESIA Hx Anesthesia: Yes Hx Anesthesia Reactions: No Meds Allergies/Adverse Reactions: Allergies Allergy/AdvReac Type Severity Reaction Status Date / Time No Known Allergies Allergy Unverified 08/13/17 11:47 - Medications Medications: Current Medications Escitalopram Oxalate (Lexapro) 5 mg PO DAILY [facility] Last Admin: 08/20/17 10:05 Dose: 5 mg Famotidine (Pepcid) 20 mg PO BID [facility] Last Admin: 08/20/17 10:05 Dose: 20 mg Folic Acid (Folic Acid) 1 mg PO DAILY [facility] Last Admin: 08/20/17 10:05 Dose: 1 mg Heparin Sodium (Porcine) (Heparin) 5,000 units SC Q12 [facility] Last Admin: 08/20/17 10:05 Dose: 5,000 units Sodium Chloride (Sodium Chloride 0.9%) 1,000 mls @ 100 mls/hr IV .Q10H [facility] Last Admin: 08/20/17 07:39 Dose: Not Given Multivitamins (Hexavitamin) 1 tab PO DAILY [facility] Last Admin: 08/20/17 10:05 Dose: 1 tab Nitrofurantoin Macrocrystals (Macrobid) 100 mg PO BID [facility] PRN Reason: Protocol Stop: 08/22/17 00:00 Last Admin: 08/20/17 10:05 Dose: 100 mg Saccharomyces Boulardii (Florastor) 250 mg PO DAILY [facility] Last Admin: 08/20/17 10:04 Dose: 250 mg Thiamine HCl (Vitamin B1 Tab) 100 mg PO DAILY [facility] Last Admin: 08/20/17 10:04 Dose: 100 mg Physical Exam - Psychiatric Exam Additional comments: Awake and alert No dysarthria No aphasia Moves all extrmieites No drift Results - Vital Signs Recent Vital Signs: Last Vital Signs Temp 97.7 F 08/20/17 07:15 Pulse 67 08/20/17 08:03 Resp 20 08/20/17 07:15 BP 116/68 08/20/17 07:15 Pulse Ox 98 08/20/17 07:15 - Labs Result Diagrams: 08/19/17 20:42 08/19/17 20:42 Labs: Laboratory Results - last 24 hr 08/19/17 08/19/17 08/19/17 20:42 20:42 20:42 WBC 11.1 H RBC 2.95 L Hgb 10.3 L Hct 30.2 L MCV 102.4 H MCH 35.0 H MCHC 34.1 RDW 17.3 H Plt Count 291 D MPV 9.3 Neut % (Auto) 67.7 Lymph % (Auto) 20.5 [place] % (Auto) 9.8 Eos % (Auto) 0.4 Baso % (Auto) 1.6 Neut # (Auto) 7.5 H Lymph # (Auto) 2.3 [place] # (Auto) 1.1 H Eos # (Auto) 0.0 Baso # (Auto) 0.2 PT 14.1 H INR 1.3 APTT 33 Sodium 132 Potassium 4.1 Chloride 92 L Carbon Dioxide 25 Anion Gap 19 BUN 18 Creatinine 0.9 Est GFR ( Amer) > 60 Est GFR (Non-Af Amer) > 60 Random Glucose 133 H Calcium 8.9 Magnesium 1.1 L Total Bilirubin 4.3 H AST 98 H ALT 38 Alkaline Phosphatase 333 H Troponin I < 0.0120 Total Protein 8.4 H Albumin 3.6 Globulin 4.8 H Albumin/Globulin Ratio 0.8 L Lipase 502 H Urine Color Urine Clarity Urine pH Ur Specific [place] Urine Protein Urine Glucose (UA) Urine Ketones Urine Blood Urine Nitrate Urine Bilirubin Urine Urobilinogen Ur Leukocyte Esterase Urine WBC (Auto) Urine RBC (Auto) Ur Squamous Epith Cells Hyaline Casts Urine Opiates Screen Urine Methadone Screen Ur Barbiturates Screen Ur Phencyclidine Scrn Ur Amphetamines Screen U Benzodiazepines Scrn U Oth Cocaine Metabols U Cannabinoids Screen Alcohol, Quantitative 08/20/17 08/20/17 08/20/17 01:14 01:14 01:14 WBC RBC Hgb Hct MCV MCH MCHC RDW Plt Count MPV Neut % (Auto) Lymph % (Auto) [place] % (Auto) Eos % (Auto) Baso % (Auto) Neut # (Auto) Lymph # (Auto) [place] # (Auto) Eos # (Auto) Baso # (Auto) PT INR APTT Sodium Potassium Chloride Carbon Dioxide Anion Gap BUN Creatinine Est GFR ( Amer) Est GFR (Non-Af Amer) Random Glucose Calcium Magnesium Total Bilirubin AST ALT Alkaline Phosphatase Troponin I Total Protein Albumin Globulin Albumin/Globulin Ratio Lipase Urine Color [place] Urine Clarity Hazy Urine pH 5.0 Ur Specific [place] 1.024 Urine Protein 1+ H Urine Glucose (UA) Normal Urine Ketones Negative Urine Blood 1+ H Urine Nitrate Negative Urine Bilirubin 1+ H Urine Urobilinogen 4.0 Ur Leukocyte Esterase Neg Urine WBC (Auto) 6 H Urine RBC (Auto) 4 H Ur Squamous Epith Cells 5 Hyaline Casts 6-10 H Urine Opiates Screen Negative Urine Methadone Screen Negative Ur Barbiturates Screen Negative Ur Phencyclidine Scrn Negative Ur Amphetamines Screen Negative U Benzodiazepines Scrn Negative U Oth Cocaine Metabols Negative U Cannabinoids Screen Positive H Alcohol, Quantitative < 10 Assessment & Plan - Assessment and Plan (Free Text) Assessment: 62 year old male with syncopal event in the context of orhtostatic hypotension. Plan: 1. left ICA is not symptomatic, no history of retinal or hemispheric ischemia. As such I would not offer carotid stenting at this time and would defer to neurology for medical management. 2.I think the patient would benefit from a Vascular surgery consultation regarding CEA 3. Neurology consultation 4. Would get an MRI of the brain without VALERIY to look for any silent ischemia d/w Dr. Shagufta Hayes - Date & Time Date: 08/20/17 Time: 12:39
--- NOTE | 2017-08-20 13:52 | CP.PCM.CON ---
History of Present Illness - History of Present Illness History of Present Illness: Mr. Lee is a 62 yr old male with pmh of htn, etoh abuse, gout and spinal stenosis, who came to Er for syncope. He was discharged on Wednesday for similar symptoms where he had dizziness and suddenly collapsed, with no blurriness of vision, tachycardia or diaphoresis. The says that he just falls on his face suddenly with no warning. There is no trigger that he can note , and it is not linked to alcohol, no post event confusion, no loss of consciousness. Patient states his last drink was last Wednesday08/13/17. Patient denies chest pain, palpitations, shortness of breath, nausea, vomiting, diarrhea or constipation. On review of CTA done on 08/13/17, it was found that he has 75 % stenosis of ICA. was consulted and greatly appreciate his consult, and did not recommend a stent at this time. Past Medical History: HTN, EtOH abuse, spinal stenosis and gout (once per year) Past Surgical History: umbilical hernia repair (2001) Family History: mom - diabetes Medications: Allergies: NKDA Social History: Lives with ; quit smoking 8 years ago; used to smoke about 1.5 ppd (cigarettes) x 30 yrs; 1 pint of VODKA nearly daily x 13 years (last drink was last Wednesday08/13/17); occasional marijuana. On exam: Normal neurological examination. there is no ataxia or instability when walking , no turn issues. no cogwheel rigidity. no aphasia. CN 2-12 normal. motor: strength normal, sensory normal. +2 dtr ul and ll bl. toes downgoing. no clonus. Past Patient History - Past Medical History & Family History Past Medical History?: Yes - Past Social History Smoking Status: Former Smoker - CARDIAC Hx Hypercholesterolemia: Yes Hx Hypertension: Yes - PULMONARY Hx Respiratory Disorders: No - NEUROLOGICAL Hx Neurological Disorder: No - HEENT Hx HEENT Problems: No - RENAL Hx Chronic Kidney Disease: No - ENDOCRINE/METABOLIC Hx Endocrine Disorders: No - HEMATOLOGICAL/ONCOLOGICAL Hx Blood Disorders: No - INTEGUMENTARY Hx Dermatological Problems: No - MUSCULOSKELETAL/RHEUMATOLOGICAL Hx Falls: Yes Hx Gout: Yes - GASTROINTESTINAL Hx Gastrointestinal Disorders: No - GENITOURINARY/GYNECOLOGICAL Hx Genitourinary Disorders: No - PSYCHIATRIC Hx Substance Use: No - SURGICAL HISTORY Hx Herniorrhaphy: Yes - ANESTHESIA Hx Anesthesia: Yes Hx Anesthesia Reactions: No Meds Allergies/Adverse Reactions: Allergies Allergy/AdvReac Type Severity Reaction Status Date / Time No Known Allergies Allergy Unverified 08/13/17 11:47 - Medications Medications: Current Medications Alprazolam (Xanax) 0.5 mg PO ONCE PRN PRN Reason: Anxiety Escitalopram Oxalate (Lexapro) 5 mg PO DAILY [facility] Last Admin: 08/20/17 10:05 Dose: 5 mg Famotidine (Pepcid) 20 mg PO BID [facility] Last Admin: 08/20/17 10:05 Dose: 20 mg Folic Acid (Folic Acid) 1 mg PO DAILY [facility] Last Admin: 08/20/17 10:05 Dose: 1 mg Heparin Sodium (Porcine) (Heparin) 5,000 units SC Q12 [facility] Last Admin: 08/20/17 10:05 Dose: 5,000 units Sodium Chloride (Sodium Chloride 0.9%) 1,000 mls @ 100 mls/hr IV .Q10H [facility] Last Admin: 08/20/17 07:39 Dose: Not Given Multivitamins (Hexavitamin) 1 tab PO DAILY [facility] Last Admin: 08/20/17 10:05 Dose: 1 tab Nitrofurantoin Macrocrystals (Macrobid) 100 mg PO BID [facility] PRN Reason: Protocol Stop: 08/22/17 00:00 Last Admin: 08/20/17 10:05 Dose: 100 mg Saccharomyces Boulardii (Florastor) 250 mg PO DAILY [facility] Last Admin: 08/20/17 10:04 Dose: 250 mg Thiamine HCl (Vitamin B1 Tab) 100 mg PO DAILY [facility] Last Admin: 08/20/17 10:04 Dose: 100 mg Results - Vital Signs Recent Vital Signs: Last Vital Signs Temp 97.7 F 08/20/17 07:15 Pulse 67 08/20/17 08:03 Resp 20 08/20/17 07:15 BP 116/68 08/20/17 07:15 Pulse Ox 98 08/20/17 07:15 - Labs Result Diagrams: 08/19/17 20:42 08/19/17 20:42 Labs: Laboratory Results - last 24 hr 08/19/17 08/19/17 08/19/17 20:42 20:42 20:42 WBC 11.1 H RBC 2.95 L Hgb 10.3 L Hct 30.2 L MCV 102.4 H MCH 35.0 H MCHC 34.1 RDW 17.3 H Plt Count 291 D MPV 9.3 Neut % (Auto) 67.7 Lymph % (Auto) 20.5 [place] % (Auto) 9.8 Eos % (Auto) 0.4 Baso % (Auto) 1.6 Neut # (Auto) 7.5 H Lymph # (Auto) 2.3 [place] # (Auto) 1.1 H Eos # (Auto) 0.0 Baso # (Auto) 0.2 PT 14.1 H INR 1.3 APTT 33 Sodium 132 Potassium 4.1 Chloride 92 L Carbon Dioxide 25 Anion Gap 19 BUN 18 Creatinine 0.9 Est GFR ( Amer) > 60 Est GFR (Non-Af Amer) > 60 Random Glucose 133 H Calcium 8.9 Magnesium 1.1 L Total Bilirubin 4.3 H AST 98 H ALT 38 Alkaline Phosphatase 333 H Troponin I < 0.0120 Total Protein 8.4 H Albumin 3.6 Globulin 4.8 H Albumin/Globulin Ratio 0.8 L Lipase 502 H Urine Color Urine Clarity Urine pH Ur Specific [place] Urine Protein Urine Glucose (UA) Urine Ketones Urine Blood Urine Nitrate Urine Bilirubin Urine Urobilinogen Ur Leukocyte Esterase Urine WBC (Auto) Urine RBC (Auto) Ur Squamous Epith Cells Hyaline Casts Urine Opiates Screen Urine Methadone Screen Ur Barbiturates Screen Ur Phencyclidine Scrn Ur Amphetamines Screen U Benzodiazepines Scrn U Oth Cocaine Metabols U Cannabinoids Screen Alcohol, Quantitative 08/20/17 08/20/17 08/20/17 01:14 01:14 01:14 WBC RBC Hgb Hct MCV MCH MCHC RDW Plt Count MPV Neut % (Auto) Lymph % (Auto) [place] % (Auto) Eos % (Auto) Baso % (Auto) Neut # (Auto) Lymph # (Auto) [place] # (Auto) Eos # (Auto) Baso # (Auto) PT INR APTT Sodium Potassium Chloride Carbon Dioxide Anion Gap BUN Creatinine Est GFR ( Amer) Est GFR (Non-Af Amer) Random Glucose Calcium Magnesium Total Bilirubin AST ALT Alkaline Phosphatase Troponin I Total Protein Albumin Globulin Albumin/Globulin Ratio Lipase Urine Color [place] Urine Clarity Hazy Urine pH 5.0 Ur Specific [place] 1.024 Urine Protein 1+ H Urine Glucose (UA) Normal Urine Ketones Negative Urine Blood 1+ H Urine Nitrate Negative Urine Bilirubin 1+ H Urine Urobilinogen 4.0 Ur Leukocyte Esterase Neg Urine WBC (Auto) 6 H Urine RBC (Auto) 4 H Ur Squamous Epith Cells 5 Hyaline Casts 6-10 H Urine Opiates Screen Negative Urine Methadone Screen Negative Ur Barbiturates Screen Negative Ur Phencyclidine Scrn Negative Ur Amphetamines Screen Negative U Benzodiazepines Scrn Negative U Oth Cocaine Metabols Negative U Cannabinoids Screen Positive H Alcohol, Quantitative < 10 Assessment & Plan - Assessment and Plan (Free Text) Assessment: 62 yr old male with significant stenosis of his ICA 75% that is most likely etiology of his strokes. Plan: 1. Neurointerventional consult. 2. Aspirin and plavix 3. Gait training. 4. B12 and [address]ate[address] DR. Alvaro MD,DPN.
--- NOTE | 2017-08-20 15:31 | CP.PCM.PN ---
<Tip Ivory - Last Filed: 08/20/17 15:57> Subjective - Date & Time of Evaluation Date of Evaluation: 08/20/17 Time of Evaluation: 14:16 - Subjective Subjective: PGY1 Medicine Note for Dr. Eb Hayes Patient seen and examined at bedside this afternoon. No acute events overnight. Patient is sitting up on the side of the bed talking with his family. He states that when he is sitting/laying down he feels completely normal. His states that he was passing out multiple times since he was recently discharged and it usually was shortly after he stood up from a seated position. He denies any feeling of lightheadedness or dizziness prior to passing out. "I feel completely normal, then I wake up on the ground." Patient has no complaints currently except that he is bummed to be back in the hospital. Patient denies fevers, chills, nausea, vomiting, diarrhea, constipation, chest pain, shortness of breath, abdominal pain, lightheadedness, dizziness, blurred vision, double vision or headaches. Approximately 3:45p, patient attempt to stand up and go to the bathroom but needed to sit back down because he felt like he was about to pass out. Symptoms resolved with him sitting back down. Objective - Vital Signs/Intake and Output Vital Signs (last 24 hours): Temp Pulse Resp BP Pulse Ox 97.7 F 67 20 116/68 98 08/20/17 07:15 08/20/17 08:03 08/20/17 07:15 08/20/17 07:15 08/20/17 07:15 - Medications Medications: Current Medications Alprazolam (Xanax) 0.5 mg PO ONCE PRN PRN Reason: Anxiety Escitalopram Oxalate (Lexapro) 5 mg PO DAILY [facility] Last Admin: 08/20/17 10:05 Dose: 5 mg Famotidine (Pepcid) 20 mg PO BID [facility] Last Admin: 08/20/17 10:05 Dose: 20 mg Folic Acid (Folic Acid) 1 mg PO DAILY [facility] Last Admin: 08/20/17 10:05 Dose: 1 mg Heparin Sodium (Porcine) (Heparin) 5,000 units SC Q12 [facility] Last Admin: 08/20/17 10:05 Dose: 5,000 units Sodium Chloride (Sodium Chloride 0.9%) 1,000 mls @ 100 mls/hr IV .Q10H [facility] Last Admin: 08/20/17 07:39 Dose: Not Given Multivitamins (Hexavitamin) 1 tab PO DAILY [facility] Last Admin: 08/20/17 10:05 Dose: 1 tab Nitrofurantoin Macrocrystals (Macrobid) 100 mg PO BID [facility] PRN Reason: Protocol Stop: 08/22/17 00:00 Last Admin: 08/20/17 10:05 Dose: 100 mg Saccharomyces Boulardii (Florastor) 250 mg PO DAILY [facility] Last Admin: 08/20/17 10:04 Dose: 250 mg Thiamine HCl (Vitamin B1 Tab) 100 mg PO DAILY [facility] Last Admin: 08/20/17 10:04 Dose: 100 mg - Labs Labs: 08/19/17 20:42 08/19/17 20:42 PT 14.1 SECONDS (9.7-12.2) H 08/19/17 20:42 INR 1.3 08/19/17 20:42 APTT 33 SECONDS (21-34) 08/19/17 20:42 - Constitutional Appears: Non-toxic, No Acute Distress - Head Exam Head Exam: NORMOCEPHALIC. absent: ATRAUMATIC (healing abrasion on forhead) - Eye Exam Eye Exam: EOMI, PERRL, Scleral icterus - ENT Exam ENT Exam: Mucous Membranes Moist - Respiratory Exam Respiratory Exam: Clear to Ausculation Bilateral, NORMAL BREATHING PATTERN. absent: Accessory Muscle Use, Rales, Rhonchi, Wheezes, Respiratory Distress - Cardiovascular Exam Cardiovascular Exam: REGULAR RHYTHM, +S1, +S2 - GI/Abdominal Exam GI & Abdominal Exam: Soft, Normal Bowel Sounds. absent: Distended, Firm, Guarding, Rigid, Tenderness - Extremities Exam Extremities Exam: absent: Calf Tenderness, Pedal Edema Additional comments: ecchymosis on left forearm - Neurological Exam Neurological Exam: Alert, Awake, CN II-XII Intact, Oriented x3 Neuro motor strength exam: Left Upper Extremity: 5, Right Upper Extremity: 5, Left Lower Extremity: 5, Right Lower Extremity: 5 - Psychiatric Exam Psychiatric exam: Normal Affect, Normal Mood - Skin Skin Exam: Dry, Warm Assessment and Plan - Assessment and Plan (Free Text) Plan: Recurrent Syncope - Admit to telemetry * Etiologies to exclude: new medications, arrhythmia, alcoholism, electrolyte imbalance - Neurology Consult, Dr. John - Syncope/orthostatic hypotension - Cardiology Consult, Dr. Bustamante - loop recorder - Vascular Surgery, Dr. Schmidt, possible Carotid Endarterectomy - Neuro IR Consult, Dr. Murguia, Left carotid stenosis >75% * Left ICA is not symptomatic, no history of retinal or hemispheric ischemia. As such I would not offer carotid stenting at this time and would defer to neurology for medical management. * I think the patient would benefit from a Vascular surgery consultation regarding CEA * Neurology consultation * Would get an MRI of the brain without VALERIY to look for any silent ischemia * f/u brain MRI w/o contrast - Echo (08/13/17): EF ~50%, mild tricuspid regurg. - Head CT (08/19/17): No acute findings. Chronic microvascular ischemic change in the deep white matter. Moderate generalized cortical atrophy. - CTA head/neck (08/14): significant calcified atherosclerotic plaque change in left cartoid bifurcation which appears to result in approximaltely 75% diameter stenosis. calcified atherosclerotic plaque also noted along the cavernous carotid segments extending superiorly into the supraclinoid segments with moderate stenosis. No evidence of occlusion of the cerebral vasculature. No evidence of large aneurysm nor vascular malformation - Head CT (08/19): No acute findings. Chronic microvascular ischemic change in the deep white matter. Moderate generalized cortical atrophy. - EKG: Rate 70bmp NSR - Urine drug screen - positive for cannabinoids only - alcohol serum < 10 (negative) - orthostatic vitals q6h * Patient has Orthostatic Hypotension * Lying - 134/76 * Sitting - 128/71 * Standing - 103/69 - NS @ 100cc/hr - TSH: 3.51, Free T4: 1.91 UTI - Previous admission Urine Culture - Gram positive cocci * Continue Macrobid 100mg bid (last dose Wednesday08/22/17) Hyperbilirubinemia/Transaminitis/ETOH Abuse/History of Hepatitis/Jaundice - Elevated total bilirubin 4.3 * Abdominal US (08/14/17): mildhepatosplenomegaly with prominent common bile duct. Intraluminal gallbladder sludge however no stones are identified. Liver increased echotexture consistent with fatty infiltration however infiltrative hepatocellular disease process not excluded. - Hepatitis: negative - HIV: negative Macrocytic Anemia Secondary to long history of alcohol abuse - MCV: 102.4; Hgb: 10.3 - Iron Studies done 08/13/17 admission: * Iron: 167, TIBC: 220, iron: 76 * folate: 2.9-->low * b12: 808 * reticulocyte count: 1.4 * Reticulocyte index: 0.58-->hypoproliferation of reticulocytes * haptoglobin: 102 History of EtOH abuse * Multivitamin 1 tab PO daily * Thiamine 100mg PO daily * Folic Acid 1mg PO daily - Monitor on telemetry Leukocytosis - WBC 11.1, pt afebrile * Monitor * Chest xray (08/19) - Mild venous congestion. Mild patchy increased markings at the lung bases. Calcification at the aortic knob. Mild cardiomegaly Hypertension Medications are currently on hold: * Norvasc 5mg PO daily * Enalapril 10mg PO daily * Aspirin 81mg PO daily A1C: 4.9 Lipid panel: T, Cholesterol: 125, LDL 44, HDL: 21 Tobacco cessation Alcohol Cessation - Patient states he has not had a drink since Wednesday08/13/17 - Strongly counselled at bedside on admission Prophylaxis - Pepcid 20mg po bid - Heparin 5000 units subq Q12H - PT eval and treat Case discussed with Dr. Eb Ivory PGY1 <Denis Hayes - Last Filed: 08/20/17 18:14> Objective - Vital Signs/Intake and Output Vital Signs (last 24 hours): Temp Pulse Resp BP Pulse Ox 98.0 F 70 20 126/74 98 08/20/17 15:18 08/20/17 15:18 08/20/17 15:18 08/20/17 15:18 08/20/17 15:18 - Medications Medications: Current Medications Alprazolam (Xanax) 0.5 mg PO ONCE PRN PRN Reason: Anxiety Escitalopram Oxalate (Lexapro) 5 mg PO DAILY [facility] Last Admin: 08/20/17 10:05 Dose: 5 mg Famotidine (Pepcid) 20 mg PO BID [facility] Last Admin: 08/20/17 10:05 Dose: 20 mg Folic Acid (Folic Acid) 1 mg PO DAILY [facility] Last Admin: 08/20/17 10:05 Dose: 1 mg Heparin Sodium (Porcine) (Heparin) 5,000 units SC Q12 [facility] Last Admin: 08/20/17 10:05 Dose: 5,000 units Sodium Chloride (Sodium Chloride 0.9%) 1,000 mls @ 100 mls/hr IV .Q10H [facility] Last Admin: 08/20/17 07:39 Dose: Not Given Multivitamins (Hexavitamin) 1 tab PO DAILY [facility] Last Admin: 08/20/17 10:05 Dose: 1 tab Nitrofurantoin Macrocrystals (Macrobid) 100 mg PO BID [facility] PRN Reason: Protocol Stop: 08/22/17 00:00 Last Admin: 08/20/17 10:05 Dose: 100 mg Saccharomyces Boulardii (Florastor) 250 mg PO DAILY [facility] Last Admin: 08/20/17 10:04 Dose: 250 mg Thiamine HCl (Vitamin B1 Tab) 100 mg PO DAILY [facility] Last Admin: 08/20/17 10:04 Dose: 100 mg - Labs Labs: 08/19/17 20:42 08/19/17 20:42 PT 14.1 SECONDS (9.7-12.2) H 08/19/17 20:42 INR 1.3 08/19/17 20:42 APTT 33 SECONDS (21-34) 08/19/17 20:42 Attending/Attestation - Attestation I have personally seen and examined this patient.: Yes I have fully participated in the care of the patient.: Yes I have reviewed all pertinent clinical information, including history, physical exam and plan: Yes Notes (Text): 08/20/17 18:06 Patient was seen and examined at 10:45 AM. Exam, assessment and plan were gone over with the resident. Spoke extensively with patient and concerning the above diagnosises Spoke with Interventional NeuroRadiologist Dr. Sebas Estes and no stenting of the Left Carotid Stenosis is recommended at this time. Spoke with Vascular Surgeon Dr. Simeon Schmidt and no carotid endarterectomy is recommended at this time. Await Drafter Cartographic Dr. Bustamante evaluation for possible cardiac loop recorder. Follow up morning Cortisol test and if low order ACTH Stimulation test as possible cause of the Orthostatic Hypotension leading to his syncopal episodes Denis Hayes D.O.
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
--- NOTE | 2017-08-20 22:23 | CARD ---
APPROVED REPORT EKG Measurement Heart [id number] IN 160P44 [id number] <Conclusion> Normal sinus rhythm Inferior infarct, age undetermined Abnormal ECG
[2017-08-21] MEDS: Sodium Chloride 0.9% 1,000 ML IV SCH ×4 (01:43→22:51)
[2017-08-21 06:57] LABS: BLOOD UREA NITROGEN 9 mg/dL (9-20); CALCIUM 8.3 mg/dl (8.6-10.4); GFR AFRICAN-AMERICAN > 60; GFR NON-AFRICAN AMERICAN > 60
[2017-08-21 06:58] LABS: ALB/GLOB RATIO 0.8 (1.0-2.1); ALT/SGPT 33 U/L (21-72); AST/SGOT 86 U/L (17-59)
[2017-08-21 07:11] LABS: BASO % 0.7 % (0.0-2.0); EOS # 0.1 K/uL (0.0-0.7); EOS % 0.9 % (0.0-4.0); HEMOGLOBIN 9.7 g/dL (12.0-18.0); LYMPH # 1.6 K/uL (1.0-4.3); LYMPH % 21.7 % (20.0-40.0); MEAN CELL VOLUME 102.9 fL (80.0-94.0); MEAN CORPUSCULAR HEMOGLOBIN 35.7 pg (27.0-31.0); MEAN CORPUSCULAR HGB CONC 34.7 g/dL (33.0-37.0); MEAN PLATELET VOLUME 9.5 fL (7.2-11.7); MONO # 0.8 K/uL (0.0-0.8); MONO % 11.6 % (0.0-10.0); NEUT # 4.7 K/uL (1.8-7.0); NEUT % 65.1 % (50.0-75.0); RBC 2.71 Mil/uL (4.40-5.90); RED CELL DISTRIBUTION WIDTH 17.4 % (11.5-14.5); WHITE BLOOD COUNT 7.3 K/uL (4.8-10.8)
[2017-08-21] MEDS: Multiple Vitamins Tab PO SCH (09:01)
[2017-08-21] MEDS: Magnesium Sulfate 1 gm in D5W 1 GM/100 ML BAG IVPB SCH ×2 (09:01→10:28)
[2017-08-21] MEDS: Saccharomyces Boulardi 250 mg Cap PO SCH (09:02)
--- NOTE | 2017-08-21 09:36 | CP.PCM.PN ---
Subjective - Date & Time of Evaluation Date of Evaluation: 08/21/17 Time of Evaluation: 09:36 - Subjective Subjective: Medicine progress note for Dr. Hayes's service: Patient seen and examined. Patient states his weakness with position changes is improving. Patient states he is trying to make slower transitions from sitting to standing. Patient denies nausea, vomiting, diarrhea, constipation, chest pain, shortness of breath, abdominal pain, blurred vision, double vision or headaches. Objective - Vital Signs/Intake and Output Vital Signs (last 24 hours): Temp Pulse Resp BP Pulse Ox 97.5 F L 74 20 110/66 96 08/21/17 07:00 08/21/17 07:00 08/21/17 07:00 08/21/17 07:00 08/21/17 07:00 - Medications Medications: Current Medications Alprazolam (Xanax) 0.5 mg PO ONCE PRN PRN Reason: Anxiety Escitalopram Oxalate (Lexapro) 5 mg PO DAILY [facility] Last Admin: 08/21/17 09:02 Dose: 5 mg Famotidine (Pepcid) 20 mg PO BID [facility] Last Admin: 08/21/17 09:01 Dose: 20 mg Folic Acid (Folic Acid) 1 mg PO DAILY [facility] Last Admin: 08/21/17 09:01 Dose: 1 mg Heparin Sodium (Porcine) (Heparin) 5,000 units SC Q12 [facility] Last Admin: 08/21/17 09:02 Dose: 5,000 units Sodium Chloride (Sodium Chloride 0.9%) 1,000 mls @ 100 mls/hr IV .Q10H [facility] Last Admin: 08/21/17 01:43 Dose: 100 mls/hr Magnesium Sulfate/Dextrose (Magnesium Sulfate 1 Gm/100 Ml D5w) 1 gm in 100 mls @ 200 mls/hr IVPB Q1H [facility] Stop: 08/21/17 10:14 Last Admin: 08/21/17 09:01 Dose: 200 mls/hr Multivitamins (Hexavitamin) 1 tab PO DAILY [facility] Last Admin: 08/21/17 09:01 Dose: 1 tab Nitrofurantoin Macrocrystals (Macrobid) 100 mg PO BID [facility] PRN Reason: Protocol Stop: 08/22/17 00:00 Last Admin: 08/21/17 09:02 Dose: 100 mg Saccharomyces Boulardii (Florastor) 250 mg PO DAILY [facility] Last Admin: 08/21/17 09:02 Dose: 250 mg Thiamine HCl (Vitamin B1 Tab) 100 mg PO DAILY [facility] Last Admin: 08/21/17 09:01 Dose: 100 mg - Labs Labs: 08/21/17 06:30 08/21/17 06:30 PT 14.1 SECONDS (9.7-12.2) H 08/19/17 20:42 INR 1.3 08/19/17 20:42 APTT 33 SECONDS (21-34) 08/19/17 20:42 - Constitutional Appears: No Acute Distress - Head Exam Head Exam: NORMOCEPHALIC - Eye Exam Eye Exam: EOMI - ENT Exam ENT Exam: Mucous Membranes Moist - Respiratory Exam Respiratory Exam: Clear to Ausculation Bilateral, NORMAL BREATHING PATTERN - Cardiovascular Exam Cardiovascular Exam: +S1, +S2 - GI/Abdominal Exam GI & Abdominal Exam: Soft, Normal Bowel Sounds. absent: Tenderness - Extremities Exam Extremities Exam: Normal Inspection. absent: Pedal Edema - Neurological Exam Neurological Exam: Alert, Awake, Oriented x3 - Psychiatric Exam Psychiatric exam: Normal Affect - Skin Skin Exam: Warm Assessment and Plan - Assessment and Plan (Free Text) Assessment: Recurrent Syncope cortisol 13.3, low will check ACTH stimulation test eval pending for loop recorder will re-check orthostatic vitals with MEGHAN stockings - monitor on telemetry * Etiologies to exclude: new medications, arrhythmia, alcoholism, electrolyte imbalance - Neurology Consult, Dr. John - Syncope/orthostatic hypotension - Cardiology Consult, Dr. Bustamante - loop recorder - Vascular Surgery, Dr. Schmidt, possible Carotid Endarterectomy - Neuro IR Consult, Dr. Murguia, Left carotid stenosis >75% * Left ICA is not symptomatic, no history of retinal or hemispheric ischemia. As such I would not offer carotid stenting at this time and would defer to neurology for medical management. * I think the patient would benefit from a Vascular surgery consultation regarding CEA * Neurology consultation * Would get an MRI of the brain without VALERIY to look for any silent ischemia * f/u brain MRI w/o contrast - Echo (08/13/17): EF ~50%, mild tricuspid regurg. - Head CT (08/19/17): No acute findings. Chronic microvascular ischemic change in the deep white matter. Moderate generalized cortical atrophy. - CTA head/neck (08/14): significant calcified atherosclerotic plaque change in left cartoid bifurcation which appears to result in approximaltely 75% diameter stenosis. calcified atherosclerotic plaque also noted along the cavernous carotid segments extending superiorly into the supraclinoid segments with moderate stenosis. No evidence of occlusion of the cerebral vasculature. No evidence of large aneurysm nor vascular malformation - Head CT (08/19): No acute findings. Chronic microvascular ischemic change in the deep white matter. Moderate generalized cortical atrophy. - EKG: Rate 70bmp NSR - Urine drug screen - positive for cannabinoids only - alcohol serum < 10 (negative) - orthostatic vitals q6h 08/21/17 * Patient has Orthostatic Hypotension * Lying - 140/73 * Sitting - 113/67 * Standing - 113/69 - NS @ 100cc/hr - TSH: 3.51, Free T4: 1.91 UTI - Previous admission Urine Culture - Gram positive cocci * Continue Macrobid 100mg bid (last dose Wednesday08/22/17) Hyperbilirubinemia/Transaminitis/ETOH Abuse/History of Hepatitis/Jaundice - Elevated total bilirubin 4.3 * Abdominal US (08/14/17): mildhepatosplenomegaly with prominent common bile duct. Intraluminal gallbladder sludge however no stones are identified. Liver increased echotexture consistent with fatty infiltration however infiltrative hepatocellular disease process not excluded. - Hepatitis: negative - HIV: negative Macrocytic Anemia Secondary to long history of alcohol abuse - MCV: 102.9; Hgb: 9.7 - Iron Studies done 08/13/17 admission: * Iron: 167, TIBC: 220, iron: 76 * folate: 2.9-->low * b12: 808 * reticulocyte count: 1.4 * Reticulocyte index: 0.58-->hypoproliferation of reticulocytes * haptoglobin: 102 History of EtOH abuse * Multivitamin 1 tab PO daily * Thiamine 100mg PO daily * Folic Acid 1mg PO daily - Monitor on telemetry Leukocytosis resolved - WBC 7.3, pt afebrile * Monitor * Chest xray (08/19) - Mild venous congestion. Mild patchy increased markings at the lung bases. Calcification at the aortic knob. Mild cardiomegaly Hypertension Medications are currently on hold: * Norvasc 5mg PO daily * Enalapril 10mg PO daily * Aspirin 81mg PO daily A1C: 4.9 Lipid panel: T, Cholesterol: 125, LDL 44, HDL: 21 Tobacco cessation Alcohol Cessation - Patient states he has not had a drink since Wednesday08/13/17 - Strongly counselled at bedside on admission Prophylaxis - Pepcid 20mg po bid - Heparin 5000 units subq Q12H - PT eval and treat Case discussed with Dr. Eb Hayes
--- NOTE | 2017-08-21 13:39 | MRI ---
PROCEDURE: MRI of the brain dated 08/21/2017. HISTORY: Orthostatic Hypotension. Carotid Stenosis COMPARISON: Comparison made with prior CT scan of the brain dated 08 19 17 TECHNIQUE: Multiplanar, multisequence MR images of the brain were obtained without intravenous contrast enhancement. Note the examination is limited by motion artifact. FINDINGS: HEMORRHAGE: No acute parenchymal, subarachnoid or extra-axial hemorrhage. No evidence hemosiderin deposition seen on gradient echo weighted sequence. DWI: No evidence of an acute or early subacute infarction seen on diffusion imaging. BRAIN PARENCHYMA: Mild diffuse/confluent chronic periventricular white matter ischemic changes are seen both cerebral hemispheres. There also appear to be a several tiny chronic appearing lacunar type infarcts scattered about the deep and subcortical white matter probably both basal nuclei and left cerebellum. None of these changes exhibit restricted diffusion. Moderate to fairly significant volume loss VENTRICLES: No obstructive Hydrocephalus. CRANIUM: Calvarium appears grossly normal so far as can seen. ORBITS: Orbits and contents appear grossly unremarkable. PARANASAL SINUSES/MASTOIDS: Clear VASCULAR SYSTEM: Visualized major vascular flow voids at skull base patent. OTHER FINDINGS: None. IMPRESSION: Limited motion degraded study. Mild chronic periventricular white matter ischemic changes with several smaller chronic appearing lacunar type infarcts scattered about the deep and subcortical white matter as well as both basal nuclei of the cerebellum. Moderate to fairly significant volume loss.
--- NOTE | 2017-08-21 17:01 | CP.PCM.CON ---
History of Present Illness - History of Present Illness History of Present Illness: Reason for consultation: syncope HPI: 62 year old male with past medical history of HTN, EtOH abuse, spinal stenosis and gout presents to the ER for syncope. Patient states after being discharged on Wednesday for similar symptoms he has had a few syncopal episodes. Today he has had 3 episodes where he just all of a sudden collapses. He denies feeling lightheaded, dizzy, or changes of vision. He states these events happen randomly and are not triggered by a specific event. He states he usually passed out for a few minutes. Patient states his last drink was last Wednesday08/13/17. Patient denies chest pain, palpitations, shortness of breath, nausea, vomiting, diarrhea or constipation. Review of Systems - Cardiovascular Cardiovascular: absent: Chest Pain, Chest Pain at Rest, Dyspnea on Exertion, Irregular Heart Rhythm, Leg Edema, Lightheadedness, Palpitations - Respiratory Respiratory: absent: Cough, Dyspnea, Dyspnea on Exertion - Gastrointestinal Gastrointestinal: absent: Constipation, Diarrhea Past Patient History - Past Medical History & Family History Past Medical History?: Yes - Past Social History Smoking Status: Former Smoker - CARDIAC Hx Hypercholesterolemia: Yes Hx Hypertension: Yes - PULMONARY Hx Respiratory Disorders: No - NEUROLOGICAL Hx Neurological Disorder: Yes Hx Syncope: Yes - HEENT Hx HEENT Problems: No - RENAL Hx Chronic Kidney Disease: No - ENDOCRINE/METABOLIC Hx Endocrine Disorders: No - HEMATOLOGICAL/ONCOLOGICAL Hx Blood Disorders: No - INTEGUMENTARY Hx Dermatological Problems: No - MUSCULOSKELETAL/RHEUMATOLOGICAL Hx Falls: Yes Hx Gout: Yes - GASTROINTESTINAL Hx Gastrointestinal Disorders: No - GENITOURINARY/GYNECOLOGICAL Hx Genitourinary Disorders: No - PSYCHIATRIC Hx Substance Use: No - SURGICAL HISTORY Hx Surgeries: Yes Hx Herniorrhaphy: Yes (umbilical) Hx Musculoskeletal Surgery: Yes (left leg) - ANESTHESIA Hx Anesthesia: Yes Hx Anesthesia Reactions: No Meds Home Medications: Home Medication List Medication Instructions Recorded Confirmed Type Escitalopram [Lexapro] 10 mg PO DAILY #30 tab 08/23/17 08/19/17 Rx Allergies/Adverse Reactions: Allergies Allergy/AdvReac Type Severity Reaction Status Date / Time No Known Allergies Allergy Unverified 08/13/17 11:47 - Medications Medications: Current Medications Alprazolam (Xanax) 0.5 mg PO ONCE PRN PRN Reason: Anxiety Last Admin: 08/21/17 10:36 Dose: 0.5 mg Aspirin (Aspirin Chewable) 81 mg PO DAILY [facility] Last Admin: 08/21/17 12:14 Dose: 81 mg Cosyntropin (Cortrosyn) 0.25 mg IV ONCE ONE Stop: 08/22/17 07:01 Escitalopram Oxalate (Lexapro) 5 mg PO DAILY [facility] Last Admin: 08/21/17 09:02 Dose: 5 mg Famotidine (Pepcid) 20 mg PO BID [facility] Last Admin: 08/21/17 09:01 Dose: 20 mg Folic Acid (Folic Acid) 1 mg PO DAILY [facility] Last Admin: 08/21/17 09:01 Dose: 1 mg Heparin Sodium (Porcine) (Heparin) 5,000 units SC Q12 [facility] Last Admin: 08/21/17 09:02 Dose: 5,000 units Sodium Chloride (Sodium Chloride 0.9%) 1,000 mls @ 100 mls/hr IV .Q10H [facility] Last Admin: 08/21/17 13:14 Dose: Not Given Multivitamins (Hexavitamin) 1 tab PO DAILY [facility] Last Admin: 08/21/17 09:01 Dose: 1 tab Nitrofurantoin Macrocrystals (Macrobid) 100 mg PO BID [facility] PRN Reason: Protocol Stop: 08/22/17 00:00 Last Admin: 08/21/17 09:02 Dose: 100 mg Saccharomyces Boulardii (Florastor) 250 mg PO DAILY [facility] Last Admin: 08/21/17 09:02 Dose: 250 mg Thiamine HCl (Vitamin B1 Tab) 100 mg PO DAILY [facility] Last Admin: 08/21/17 09:01 Dose: 100 mg Physical Exam - Constitutional Appears: Non-toxic - Head Exam Head Exam: NORMAL INSPECTION - Eye Exam Eye Exam: absent: Scleral icterus - ENT Exam ENT Exam: Mucous Membranes Moist - Neck Exam Neck exam: Negative for: Full Rom, Lymphadenopathy - Respiratory Exam Respiratory Exam: NORMAL BREATHING PATTERN. absent: Decreased Breath Sounds - Cardiovascular Exam Cardiovascular Exam: REGULAR RHYTHM. absent: Bradycardia, Diastolic murmur, Irregular Rhythm - GI/Abdominal Exam GI & Abdominal Exam: Soft. absent: Tenderness - Extremities Exam Extremities exam: Negative for: calf tenderness, joint swelling, pedal edema - Neurological Exam Neurological exam: Alert, Oriented x3 Results - Vital Signs Recent Vital Signs: Last Vital Signs Temp 98.0 F 08/21/17 15:00 Pulse 67 08/21/17 15:00 Resp 20 08/21/17 15:00 BP 116/67 08/21/17 15:00 Pulse Ox 95 08/21/17 15:00 - Labs Result Diagrams: 08/23/17 07:08 08/23/17 07:08 Labs: Laboratory Results - last 24 hr 08/21/17 08/21/17 08/21/17 06:30 06:30 06:30 WBC 7.3 RBC 2.71 L Hgb 9.7 L Hct 27.9 L MCV 102.9 H MCH 35.7 H MCHC 34.7 RDW 17.4 H Plt Count 218 MPV 9.5 Neut % (Auto) 65.1 Lymph % (Auto) 21.7 [place] % (Auto) 11.6 H Eos % (Auto) 0.9 Baso % (Auto) 0.7 Neut # (Auto) 4.7 Lymph # (Auto) 1.6 [place] # (Auto) 0.8 Eos # (Auto) 0.1 Baso # (Auto) 0.0 Sodium 136 Potassium 3.8 Chloride 100 Carbon Dioxide 26 Anion Gap 15 BUN 9 Creatinine 0.7 L Est GFR ( Amer) > 60 Est GFR (Non-Af Amer) > 60 Random Glucose 99 Calcium 8.3 L Phosphorus 2.6 Magnesium 1.3 L Total Bilirubin 3.6 H AST 86 H ALT 33 Alkaline Phosphatase 310 H Total Protein 7.0 Albumin 3.0 L Globulin 4.0 H Albumin/Globulin Ratio 0.8 L Cortisol AM Sample 13.3 Assessment & Plan - Assessment and Plan (Free Text) Assessment: Recurrent syncope DDx Arrhythmias Seizure Vasovagal secondary to autonomic neuropathy Chronic Etoh abuse Plan: TILT TABLE TEST If TTT is negative, then we will proceed with Loop recorder implant. Above plan was explained with with Dr Denis Hayes. - Date & Time Date: 08/21/17 Time: 11:10
--- NOTE | 2017-08-21 19:52 | PCM.PSYCH ---
Initial Psychiatric Evaluation - Initial Psychiatric Evaluation Type of Admission: Voluntary Legal Status: Capacity Chief Complaint (in patient's own words): I became fainted at home. History of Present Illness and Precipitating Events: Patient seen, chart reviewed and case discussed Consult was requested for his possible depression, and alcoholism Patient is a 62 years old, , retired, male, living with his . Patient was admitted due to syncope. is worried that he had increased his drinking "a lot." However, he claims he still drinks 1 pint a day." His last drink reported about one week ago. Risks discussed No seizures (yet known) or DTs. Drinnking for decades but no previous tx history No drugs but cannabis use at times, was guarded about further details. Quit smoking cigarettes, 5 years ago He also has some anxiety and depressive sxs but not suicidal - Denied any psychotic, or manic symptoms. Past psych hx: Denied Current Medications: Active Medications Generic Name Dose Route Start Last Admin Trade Name Freq PRN Reason Stop Dose Admin Alprazolam 0.5 mg 08/20/17 12:36 08/21/17 10:36 Xanax PO 0.5 mg ONCE PRN Administration Anxiety Aspirin 81 mg 08/21/17 11:15 08/21/17 12:14 Aspirin Chewable PO 81 mg DAILY [facility] Administration Cosyntropin 0.25 mg 08/22/17 07:00 Cortrosyn IV 08/22/17 07:01 ONCE ONE Escitalopram Oxalate 10 mg 08/21/17 19:48 Lexapro PO DAILY [facility] Famotidine 20 mg 08/20/17 10:00 08/21/17 17:48 Pepcid PO 20 mg BID [facility]EL Administration Folic Acid 1 mg 08/20/17 10:00 08/21/17 09:01 Folic Acid PO 1 mg DAILY [facility] Administration Heparin Sodium (Porcine) 5,000 units 08/20/17 10:00 08/21/17 09:02 Heparin SC 5,000 units Q12 [facility] Administration Sodium Chloride 1,000 mls @ 100 mls/hr 08/19/17 20:45 08/21/17 17:49 Sodium Chloride 0.9% IV 100 mls/hr .Q10H [facility] Administration Lorazepam 1 mg 08/21/17 19:42 Ativan PO Q8 PRN Anxiety Multivitamins 1 tab 08/20/17 10:00 08/21/17 09:01 Hexavitamin PO 1 tab DAILY [facility] Administration Nitrofurantoin Macrocrystals 100 mg 08/20/17 10:00 08/21/17 17:48 Macrobid PO 08/22/17 00:00 100 mg BID [facility] Administration Protocol Saccharomyces Boulardii 250 mg 08/20/17 10:00 08/21/17 09:02 Florastor PO 250 mg DAILY [facility] Administration Thiamine HCl 100 mg 08/20/17 10:00 08/21/17 09:01 Vitamin B1 Tab PO 100 mg DAILY [facility] Administration Past Psychiatric History - Past Psychiatric History Previous Treatment History: Inpatient History of Abuse: None reported History of ETOH/Drug Use: See HPI History of Family Illness: None reported Pertinent Medical Hx (Current Medical&Sleep Prob, Allergies): Allergies Allergy/AdvReac Type Severity Reaction Status Date / Time No Known Allergies Allergy Unverified 08/13/17 11:47 Aspirin [Ecotrin] 81 mg PO DAILY #30 tabec 08/17/17 Clopidogrel [Plavix] 75 mg PO DAILY #30 tab 08/17/17 Enalapril Maleate [Vasotec] 10 mg PO DAILY #30 tab 08/17/17 Escitalopram [Lexapro] 5 mg PO DAILY #30 tab 08/17/17 Folic Acid 1 mg PO DAILY #30 tab 08/17/17 Multivitamins [Hexavitamin] 1 tab PO DAILY #30 tab 08/17/17 Nitrofurantoin Macrocrystals [Macrobid] 100 mg PO BID #10 cap 08/17/17 Saccharomyces Boulardi [Florastor] 250 mg PO BID #78 cap 08/17/17 Thiamine [Vitamin B1 Tab] 100 mg PO DAILY #30 tab 08/17/17 amLODIPine [Norvasc] 5 mg PO Q24H #30 tab 08/17/17 Hypertension Review of Systems - Psychiatric Psychiatric: Anxiety, Depression, Other Mental Status Examination - Personal Presentation Personal Presentation: Looks stated age - Affect Affect: Depressed - Motor Activity Motor Activity: Calm - Reliability in Providing Information Reliability in Providing Information: Fair - Speech Speech: Relevant - Mood Mood: Depressed - Formal Thought Process Formal Thought Process: No Impairment - Hallucinations/Delusions Hallucinations: Other (None reported) Delusions: Other - Obsessions/Compulsions Obsessions: None Compulsions: None - Cognitive Functions Orientation: Person, Place, Situation, Time Sensorium: Alert Attention/Concentration: Attentive Abstract Thinking: [place] Estimate of Intelligence: Average Judgement: Intact, as evidence by: Insight regarding need for hospitalization Memory: Recent intact, as evidence by: Ability to recall events of the day, Remote intact, as evidenced by: Ability to recall historical events - Risk Risk: Withdrawal, Diminished functioning - Strength & Assets Inventory Strength & Assets Inventory: Family support, Cooperative - Limitations Limitations: Other DSM 5 DX - DSM 5 DSM 5 Diagnosis: Major depressive disorder recurrent moderate Alcohol use disorder severe - Recommended/Plan of Treatment Treatment Recommendations and Plan of Treatment: Patient education Supportive therapy CBT for relapse prevention MO for abstinence Ativan 1 mg by mouth every 8 when necessary for anxiety/alcohol withdrawal symptoms Increase the dose of Lexapro to 10 mg daily Other when necessary medications - Smoking Cessation Smoking Cessation Initiated: No
[2017-08-22] MEDS: Sodium Chloride 0.9% 1,000 ML IV SCH ×2 (03:00→08:42)
[2017-08-22 08:08] LABS: BASO # 0.1 K/uL (0.0-0.2); BASO % 0.7 % (0.0-2.0); EOS # 0.1 K/uL (0.0-0.7); HEMOGLOBIN 9.8 g/dL (12.0-18.0); LYMPH # 2.1 K/uL (1.0-4.3); LYMPH % 25.6 % (20.0-40.0); MEAN CELL VOLUME 102.4 fL (80.0-94.0); MEAN CORPUSCULAR HEMOGLOBIN 35.9 pg (27.0-31.0); MEAN CORPUSCULAR HGB CONC 35.1 g/dL (33.0-37.0); MEAN PLATELET VOLUME 9.7 fL (7.2-11.7); MONO # 0.9 K/uL (0.0-0.8); MONO % 10.8 % (0.0-10.0); NEUT % 61.9 % (50.0-75.0); NRBC % 0.1 % (0.0-2.0); RBC 2.72 Mil/uL (4.40-5.90); RED CELL DISTRIBUTION WIDTH 17.2 % (11.5-14.5)
[2017-08-22 08:20] LABS: ALB/GLOB RATIO 0.7 (1.0-2.1); ALBUMIN 2.9 g/dL (3.5-5.0); ALT/SGPT 27 U/L (21-72); AST/SGOT 89 U/L (17-59); BLOOD UREA NITROGEN 6 mg/dL (9-20); CALCIUM 8.7 mg/dl (8.6-10.4); GFR AFRICAN-AMERICAN > 60; GFR NON-AFRICAN AMERICAN > 60
[2017-08-22] MEDS ORDERED: Potassium Chloride 20 mEq ER Tab PO STA (08:49)
[2017-08-22] MEDS: Magnesium Sulfate 1 gm in D5W 1 GM/100 ML BAG IVPB SCH ×2 (09:04→10:11)
[2017-08-22] MEDS: Multiple Vitamins Tab PO SCH (09:05)
[2017-08-22] MEDS: Saccharomyces Boulardi 250 mg Cap PO SCH (09:05)
--- NOTE | 2017-08-22 09:54 | CP.PCM.PN ---
<Adeline Fry DO - Last Filed: 08/22/17 13:59> Subjective - Date & Time of Evaluation Date of Evaluation: 08/22/17 Time of Evaluation: 09:54 - Subjective Subjective: Medicine progress note for Dr. Hayes's service Patient seen and examined with family at bedside. Patient states he is feeling well. Patient is wearing compression stockings. He states he still gets lightheaded with positional changes. Plan for tilt table test and loop recorder discussed with patient and family who express understanding. Objective - Vital Signs/Intake and Output Vital Signs (last 24 hours): Temp Pulse Resp BP Pulse Ox 98.1 F 72 20 145/71 97 08/22/17 07:00 08/22/17 07:00 08/22/17 07:00 08/22/17 07:00 08/22/17 07:00 Intake and Output: 08/22/17 08/22/17 06:59 18:59 Intake Total 920 Output Total 300 Balance 620 - Medications Medications: Current Medications Aspirin (Aspirin Chewable) 81 mg PO DAILY [facility] Last Admin: 08/22/17 09:05 Dose: 81 mg Escitalopram Oxalate (Lexapro) 10 mg PO DAILY [facility] Last Admin: 08/22/17 09:05 Dose: 10 mg Famotidine (Pepcid) 20 mg PO BID [facility] Last Admin: 08/22/17 09:05 Dose: 20 mg Folic Acid (Folic Acid) 1 mg PO DAILY [facility] Last Admin: 08/22/17 09:05 Dose: 1 mg Heparin Sodium (Porcine) (Heparin) 5,000 units SC Q12 [facility] Last Admin: 08/22/17 09:06 Dose: 5,000 units Sodium Chloride (Sodium Chloride 0.9%) 1,000 mls @ 100 mls/hr IV .Q10H [facility] Last Admin: 08/22/17 08:42 Dose: Not Given Magnesium Sulfate/Dextrose (Magnesium Sulfate 1 Gm/100 Ml D5w) 1 gm in 100 mls @ 200 mls/hr IVPB Q1H [facility] Stop: 08/22/17 10:29 Last Admin: 08/22/17 09:04 Dose: 200 mls/hr Lorazepam (Ativan) 1 mg PO Q8 PRN PRN Reason: Anxiety Multivitamins (Hexavitamin) 1 tab PO DAILY [facility] Last Admin: 08/22/17 09:05 Dose: 1 tab Saccharomyces Boulardii (Florastor) 250 mg PO DAILY [facility] Last Admin: 08/22/17 09:05 Dose: 250 mg Thiamine HCl (Vitamin B1 Tab) 100 mg PO DAILY [facility] Last Admin: 08/22/17 09:05 Dose: 100 mg - Labs Labs: 08/22/17 07:47 08/22/17 07:47 PT 14.1 SECONDS (9.7-12.2) H 08/19/17 20:42 INR 1.3 08/19/17 20:42 APTT 33 SECONDS (21-34) 08/19/17 20:42 - Constitutional Appears: Non-toxic, No Acute Distress - Head Exam Head Exam: ATRAUMATIC, NORMOCEPHALIC - Eye Exam Eye Exam: EOMI - ENT Exam ENT Exam: Mucous Membranes Moist - Respiratory Exam Respiratory Exam: Clear to Ausculation Bilateral, NORMAL BREATHING PATTERN - Cardiovascular Exam Cardiovascular Exam: +S1, +S2 - GI/Abdominal Exam GI & Abdominal Exam: Soft, Normal Bowel Sounds. absent: Tenderness - Extremities Exam Extremities Exam: absent: Pedal Edema Additional comments: MEGHAN stockings in place - Neurological Exam Neurological Exam: Alert, Awake - Skin Skin Exam: Warm Assessment and Plan - Assessment and Plan (Free Text) Assessment: Recurrent Syncope base line cortisol 13.3, low ACTH stimulation test: first cortisol sample 15.3, second sample 26.1 which likely represents secondary adrenal insufficiency- will need ACTH level to confirm will start florinef 0.1mg PO daily Dr Bustamante to do tilt table test and loop recorder 08/23/17 Dr. John, neurology, recommends daily aspirin and plavix- to resume after loop recorder is placed 08/14/17: B12 808, folate 2.9 MRI brain: mild chronic periventricular white matter ischemic changes with several smaller chronic appearing lacunar type infarcts scattered about the deep and subcortical white matter as well as both basal nuclei of the cerebellum. Moderate to fairly significant volume loss. - monitor on telemetry * Etiologies to exclude: new medications, arrhythmia, alcoholism, electrolyte imbalance - Neurology Consult, Dr. John - Syncope/orthostatic hypotension - Cardiology Consult, Dr. Bustamante - loop recorder - Vascular Surgery, Dr. Schmidt, possible Carotid Endarterectomy - Neuro IR Consult, Dr. Murguia, Left carotid stenosis >75% * Left ICA is not symptomatic, no history of retinal or hemispheric ischemia. As such I would not offer carotid stenting at this time and would defer to neurology for medical management. * I think the patient would benefit from a Vascular surgery consultation regarding CEA - Echo (08/13/17): EF ~50%, mild tricuspid regurg. - Head CT (08/19/17): No acute findings. Chronic microvascular ischemic change in the deep white matter. Moderate generalized cortical atrophy. - CTA head/neck (08/14): significant calcified atherosclerotic plaque change in left cartoid bifurcation which appears to result in approximaltely 75% diameter stenosis. calcified atherosclerotic plaque also noted along the cavernous carotid segments extending superiorly into the supraclinoid segments with moderate stenosis. No evidence of occlusion of the cerebral vasculature. No evidence of large aneurysm nor vascular malformation - Head CT (08/19): No acute findings. Chronic microvascular ischemic change in the deep white matter. Moderate generalized cortical atrophy. - EKG: Rate 70bmp NSR - Urine drug screen - positive for cannabinoids only - alcohol serum < 10 (negative) - orthostatic vitals q6h 08/21/17 * Patient has Orthostatic Hypotension * Lying - 140/73 * Sitting - 113/67 * Standing - 113/69 - NS @ 100cc/hr - TSH: 3.51, Free T4: 1.91 UTI - Previous admission Urine Culture - Gram positive cocci * Continue Macrobid 100mg bid (last dose Wednesday08/22/17) Hyperbilirubinemia/Transaminitis/ETOH Abuse/History of Hepatitis/Jaundice - Elevated total bilirubin 4.3 * Abdominal US (08/14/17): mildhepatosplenomegaly with prominent common bile duct. Intraluminal gallbladder sludge however no stones are identified. Liver increased echotexture consistent with fatty infiltration however infiltrative hepatocellular disease process not excluded. - Hepatitis: negative - HIV: negative Macrocytic Anemia Secondary to long history of alcohol abuse - MCV: 102.9; Hgb: 9.7 - Iron Studies done 08/13/17 admission: * Iron: 167, TIBC: 220, iron: 76 * folate: 2.9-->low * b12: 808 * reticulocyte count: 1.4 * Reticulocyte index: 0.58-->hypoproliferation of reticulocytes * haptoglobin: 102 History of EtOH abuse * Multivitamin 1 tab PO daily * Thiamine 100mg PO daily * Folic Acid 1mg PO daily - Monitor on telemetry Leukocytosis resolved - WBC 7.3, pt afebrile * Monitor * Chest xray (08/19) - Mild venous congestion. Mild patchy increased markings at the lung bases. Calcification at the aortic knob. Mild cardiomegaly Hypertension Medications are currently on hold: * Norvasc 5mg PO daily * Enalapril 10mg PO daily * Aspirin 81mg PO daily A1C: 4.9 Lipid panel: T, Cholesterol: 125, LDL 44, HDL: 21 Tobacco cessation -strongly urge patient to quit smoking Alcohol Cessation - Patient states he has not had a drink since Wednesday08/13/17 - Strongly counselled at bedside on admission Depression Dr. Garcia consulted, help appreciated -increase dose of Lexapro to 10mg PO daily Prophylaxis - Pepcid 20mg po bid - Heparin 5000 units subq Q12H - PT eval and treat Case discussed with Dr. Eb Hayes <Denis Hayes - Last Filed: 08/22/17 19:56> Objective - Vital Signs/Intake and Output Vital Signs (last 24 hours): Temp Pulse Resp BP Pulse Ox 98.3 F 66 20 133/72 97 08/22/17 15:15 08/22/17 15:15 08/22/17 15:15 08/22/17 15:15 08/22/17 15:15 Intake and Output: 08/22/17 08/23/17 18:59 06:59 Intake Total 900 Balance 900 - Medications Medications: Current Medications Escitalopram Oxalate (Lexapro) 10 mg PO DAILY [facility] Famotidine (Pepcid) 20 mg PO BID [facility] Last Admin: 08/22/17 17:44 Dose: 20 mg Fludrocortisone Acetate (Florinef) 0.1 mg PO DAILY [facility] Last Admin: 08/22/17 11:29 Dose: 0.1 mg Folic Acid (Folic Acid) 1 mg PO DAILY [facility] Last Admin: 08/22/17 09:05 Dose: 1 mg Lorazepam (Ativan) 1 mg PO Q8 PRN PRN Reason: Anxiety Multivitamins (Hexavitamin) 1 tab PO DAILY [facility] Last Admin: 08/22/17 09:05 Dose: 1 tab Saccharomyces Boulardii (Florastor) 250 mg PO DAILY [facility] Last Admin: 08/22/17 09:05 Dose: 250 mg Thiamine HCl (Vitamin B1 Tab) 100 mg PO DAILY [facility] Last Admin: 08/22/17 09:05 Dose: 100 mg - Labs Labs: 08/22/17 07:47 08/22/17 07:47 PT 14.1 SECONDS (9.7-12.2) H 08/19/17 20:42 INR 1.3 08/19/17 20:42 APTT 33 SECONDS (21-34) 08/19/17 20:42 Attending/Attestation - Attestation I have personally seen and examined this patient.: Yes I have fully participated in the care of the patient.: Yes I have reviewed all pertinent clinical information, including history, physical exam and plan: Yes Notes (Text): 08/22/17 19:34 Patient was seen and examined at 11:45 AM Exam, assessment and plan were gone over with the resident. Spoke with Aquatics Lifeguard Dr. Bustamante who will place Loop Recorder and perform Tilt Table Testing on 08/23/17. Patient is NPO after midnight and the ASA, Heparin are on Hold for the the Loop Recorder placement. Please restart ASA 81 mg PO 1x/day, Heparin 5,000 Units SC Q8H and add Plavix 75 mg PO 1x/day afterwards. ACTH stimulation test showed that Cortisol level was low at 30 minutes post administration of Cosyntropin although there was a rise at 60 minutes. Therefore this is likely Adrenal Insufficiency. Added Florinef to see if this will help with the Orthostatic Hypotension. There is likely an element of Depression in this patient and therefore Psychiatry was brought on board again (he was seen by them on last admission): Lexapro was increased to 10 mg 1x/day. Family was concerned about the patient's ability to make decisions. I explained to them on 08/21/17, that the patient does have the ability to make his own decisions, its just that those decisions may not agree with what is best for him. Medicine Team, please make sure Psychiatrist has addressed this issue with the family. Extensive conversation with patient today about doing the things that he enjoyed doing when he was younger (cooking, fishing) and spending more time with his (like going to the park and walking like they used to do when they were courting one another) once he is cleared for discharge. Explained to today, that patient must be kept socially active as much as possible. MRI Brain showed multiple old infarcts as well as generalized volume loss UTI with Gram + Cocci: finished treatment with Macrobid 08/22/17. Patient has no more urinary complaints. NO CVA tenderness on exam. Possible causes of the Orthostatic Hypotension: Carotid Stenosis: see the Interventional Neurologist and Vascular Surgeon evaluation as documented above. 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 He is now on Florinef Marijuana Use leading to Autonomic Dysfunction (increased Parasympathetic tone and decreased Sympathetic tone to the heart): counseled patient and family that this will contribute to the Orthostatic Hypotension Please note that I had an extensive 45 minute family meeting on 08/21/17 with , Sister, 2 Sons, and Daughter explaining in detail the results of patient's tests, the plan for treatment as outline above, and the possible causes of patient's Orthostatic Hypotension. Denis Hayes D.O.
--- NOTE | 2017-08-22 10:45 | CP.PCM.PN ---
Subjective - Date & Time of Evaluation Date of Evaluation: 08/22/17 Time of Evaluation: 10:42 - Subjective Subjective: Mr. Lee was seen and examined at the bedside. He is alert, oriented in all spheres. His family at bedside and was updating the patient his treatment plans. He denies any headache, dizziness, lightheadedness, nausea, or vomiting. He is able to follow simple commands. He is aware of his schedule procedure with the sustainable landscape architect in am ( loop recorder placement and a tilt table testing) . He had the cortisol testing done this morning. MRI of the brain showed mild chronic periventricular white matter ischemic changes with several smaller chronic appearing lacunar type infarcts scattered about the deep and subcortical white matter as well as both basal nuclei of the cerebellum. Patient was evaluated by both vascular and neurointerventional which they do not recommend any invasive treatment/ intervention for the stenosis in his left ICA. There was no untoward events overnight. Objective - Vital Signs/Intake and Output Vital Signs (last 24 hours): Temp Pulse Resp BP Pulse Ox 98.1 F 72 20 145/71 97 08/22/17 07:00 08/22/17 07:00 08/22/17 07:00 08/22/17 07:00 08/22/17 07:00 Intake and Output: 08/22/17 08/22/17 06:59 18:59 Intake Total 920 Output Total 300 Balance 620 - Medications Medications: Current Medications Escitalopram Oxalate (Lexapro) 10 mg PO DAILY [facility] Last Admin: 08/22/17 09:05 Dose: 10 mg Famotidine (Pepcid) 20 mg PO BID [facility] Last Admin: 08/22/17 09:05 Dose: 20 mg Fludrocortisone Acetate (Florinef) 0.1 mg PO DAILY [facility] Folic Acid (Folic Acid) 1 mg PO DAILY [facility] Last Admin: 08/22/17 09:05 Dose: 1 mg Sodium Chloride (Sodium Chloride 0.9%) 1,000 mls @ 100 mls/hr IV .Q10H [facility] Last Admin: 08/22/17 08:42 Dose: Not Given Lorazepam (Ativan) 1 mg PO Q8 PRN PRN Reason: Anxiety Multivitamins (Hexavitamin) 1 tab PO DAILY [facility] Last Admin: 08/22/17 09:05 Dose: 1 tab Saccharomyces Boulardii (Florastor) 250 mg PO DAILY [facility] Last Admin: 08/22/17 09:05 Dose: 250 mg Thiamine HCl (Vitamin B1 Tab) 100 mg PO DAILY [facility] Last Admin: 08/22/17 09:05 Dose: 100 mg - Labs Labs: 08/22/17 07:47 08/22/17 07:47 PT 14.1 SECONDS (9.7-12.2) H 08/19/17 20:42 INR 1.3 08/19/17 20:42 APTT 33 SECONDS (21-34) 08/19/17 20:42 - Constitutional Appears: No Acute Distress - Head Exam Head Exam: NORMAL INSPECTION - Extremities Exam Extremities Exam: Full ROM - Neurological Exam Neurological Exam: Alert, Awake, Oriented x3 Neuro motor strength exam: Left Upper Extremity: 5, Right Upper Extremity: 5, Left Lower Extremity: 5, Right Lower Extremity: 5 Additional comments: He is alert, oriented x3, follow commands. Assessment and Plan (1) Syncope Assessment & Plan: Case discussed with Dr. John, continue all current medical and physical therapies. Recommend folate and vitamin b 12 levels. Recommend aspirin 81 mg PO daily and plavix 75 mg po daily which will be resume after loop recorder placement javier. Status: Acute
[2017-08-22] MEDS ORDERED: Magnesium Sulfate 1 gm in D5W 1 GM/100 ML BAG IVPB SCH (12:45)
[2017-08-23 07:18] LABS: BASO # 0.1 K/uL (0.0-0.2); BASO % 0.6 % (0.0-2.0); EOS % 0.4 % (0.0-4.0); LYMPH # 1.8 K/uL (1.0-4.3); LYMPH % 17.6 % (20.0-40.0); MEAN CELL VOLUME 102.6 fL (80.0-94.0); MEAN CORPUSCULAR HEMOGLOBIN 35.4 pg (27.0-31.0); MEAN CORPUSCULAR HGB CONC 34.5 g/dL (33.0-37.0); MEAN PLATELET VOLUME 10.3 fL (7.2-11.7); MONO % 9.9 % (0.0-10.0); NEUT # 7.2 K/uL (1.8-7.0); NEUT % 71.5 % (50.0-75.0); NRBC % 0.1 % (0.0-2.0); RBC 2.82 Mil/uL (4.40-5.90); RED CELL DISTRIBUTION WIDTH 17.4 % (11.5-14.5); WHITE BLOOD COUNT 10.1 K/uL (4.8-10.8)
[2017-08-23 07:30] LABS: INR 1.2
[2017-08-23 07:56] LABS: ALB/GLOB RATIO 0.8 (1.0-2.1); ALBUMIN 3.3 g/dL (3.5-5.0); ALT/SGPT 38 U/L (21-72); AST/SGOT 101 U/L (17-59); BLOOD UREA NITROGEN 7 mg/dL (9-20); GFR AFRICAN-AMERICAN > 60; GFR NON-AFRICAN AMERICAN > 60
[2017-08-23] MEDS ORDERED: ceFAZolin IV 1 gm in Dextrose 2 GM/100 ML BAG IVPB ONE (09:29)
--- NOTE | 2017-08-23 09:37 | CP.PCM.PN ---
Subjective - Date & Time of Evaluation Date of Evaluation: 08/23/17 Time of Evaluation: 09:33 - Subjective Subjective: PROCEDURE NOTE Proc: Tilt table test Indic: Recurrent syncope IMPRESSION: NEGATIVE TILT TABLE TEST Appropriate BP and HR response to Tilt Table Test Pt is ASYMPTOMATIC throughout the test. Full report was dictated. Dr Rosio Bustamante Objective - Vital Signs/Intake and Output Vital Signs (last 24 hours): Temp Pulse Resp BP Pulse Ox 97.7 F 69 20 127/72 98 08/23/17 07:15 08/23/17 07:15 08/23/17 07:15 08/23/17 07:15 08/23/17 07:15 Intake and Output: 08/23/17 08/23/17 06:59 18:59 Intake Total 0 Balance 0 - Medications Medications: Current Medications Escitalopram Oxalate (Lexapro) 10 mg PO DAILY [facility] Famotidine (Pepcid) 20 mg PO BID [facility] Last Admin: 08/22/17 17:44 Dose: 20 mg Fludrocortisone Acetate (Florinef) 0.1 mg PO DAILY [facility] Last Admin: 08/22/17 11:29 Dose: 0.1 mg Folic Acid (Folic Acid) 1 mg PO DAILY [facility] Last Admin: 08/22/17 09:05 Dose: 1 mg Cefazolin Sodium 2 gm/ Sodium (Chloride) 100 mls @ 100 mls/hr IVPB ONCE ONE PRN Reason: Protocol Stop: 08/23/17 10:59 Lorazepam (Ativan) 1 mg PO Q8 PRN PRN Reason: Anxiety Multivitamins (Hexavitamin) 1 tab PO DAILY [facility] Last Admin: 08/22/17 09:05 Dose: 1 tab Saccharomyces Boulardii (Florastor) 250 mg PO DAILY [facility] Last Admin: 08/22/17 09:05 Dose: 250 mg Thiamine HCl (Vitamin B1 Tab) 100 mg PO DAILY [facility] Last Admin: 08/22/17 09:05 Dose: 100 mg - Labs Labs: 08/23/17 07:08 08/23/17 07:08 PT 14.0 SECONDS (9.7-12.2) H 08/23/17 07:08 INR 1.2 08/23/17 07:08 APTT 34 SECONDS (21-34) 08/23/17 07:08
[2017-08-23 09:43] LABS: FOLATE 7.9 ng/mL
[2017-08-23] MEDS ORDERED: DiphenhydrAMINE 50 mg/ml Inj ONE (09:49)
[2017-08-23] MEDS ORDERED: Midazolam 2 MG/2 ML VIAL ONE (09:51)
[2017-08-23] MEDS ORDERED: ceFAZolin 2 GM in Sodium Chloride 0.9% 100 ML IVPB ONE (10:00)
[2017-08-23] MEDS ORDERED: Sodium Chloride 0.9% 500 ML IV ONE (10:10)
[2017-08-23] MEDS: Multiple Vitamins Tab PO SCH (10:15)
[2017-08-23] MEDS: Saccharomyces Boulardi 250 mg Cap PO SCH (10:15)
[2017-08-23] MEDS ORDERED: Sodium Chloride 0.9% 1,000 ML IV SCH (10:15)
--- NOTE | 2017-08-23 11:07 | CARDCATH ---
PROCEDURE DATE: 08/23/2017 PROCEDURE: Tilt table test report. FIRE EXTINGUISHER TESTER: Rosio Bustamante MD INDICATIONS: Recurrent syncope. DESCRIPTION OF PROCEDURE: The patient was put on the table and the table was tilted at 30 degrees for 5 minutes and 60 degrees for 15 minutes. Blood pressure and heart rate response were monitored and recorded. The patient tolerated the procedure well. The patient denied any dizziness or any lightheadedness. The heart rate and the blood pressure were stable all throughout the test. IMPRESSION: Negative tilt-table test. The patient had appropriate blood pressure and heart rate response to tilt table test. The patient was asymptomatic throughout the test. Rosio Bustamante MD
--- NOTE | 2017-08-23 12:21 | PCM.PYCHPN ---
Psychiatric Progress Note - Psychiatric Progress Note Patient seen today, length of contact: 16 min Patient Chief Complaint: "I'm fine" Problems Identified/Issues Discussed: The patient is seen, chart reviewed and case discussed. His was at bedside and she is also contacted with his permission. He is doing "better" but his thinks that he is confused at times. The patient was oriented and not confused when the parts data writer saw the patient. They argue a lot regarding patient's not taking care of himself. How to deal with this problem discussed. He is on Lexapro for depression. No side effects Not suicidal/homicidal. No withdrawal symptoms as he was in the hospital for many days and on the outside for 2 days and his reports that he did not drink during that time. Support given, IA used. He still uninterested in outpatient alcoholism treatment. Medication Change: Yes Medical Record Reviewed: Yes Mental Status Examination - Cognitive Function Orientation: Person, Place, Situation, Time Memory: Impaired Attention: Poor Concentration: Poor Association: WNL Fund of Knowledge: WNL - Mood Mood: Depressed - Affect Affect: Constricted - Speech Speech: Appropriate - Formal Thought Process Formal Thought Process: No Impairment - Suicidal Ideation Suicidal Ideation: No - Homicidal Ideation Homicidal Ideation: No Goal/Treatment Plan - Goal/Treatment Plan Need for Continued Stay: Severe functional impairment, Other (Medical) Progress Toward Problem(s) and Goals/Treatment Plan: Continue medications Support, psychoeducation and IA As needed medications, such as for insomnia Psych will follow
[2017-08-23 15:48] VITALS: BP 165/90; PULSE 71; TEMP 98.3; O2SAT 95
--- NOTE | 2017-08-23 16:36 | CP.PCM.DIS ---
Provider - Provider Date of Admission: 08/21/17 11:21 Attending physician: Denis Hayes MD Time Spent in preparation of Discharge (in minutes): 45 Hospital Course - Lab Results Lab Results: Most Recent Lab Values WBC 10.1 K/uL (4.8-10.8) 08/23/17 07:08 RBC 2.82 Mil/uL (4.40-5.90) L 08/23/17 07:08 Hgb 10.0 g/dL (12.0-18.0) L 08/23/17 07:08 Hct 29.0 % (35.0-51.0) L 08/23/17 07:08 MCV 102.6 fL (80.0-94.0) H 08/23/17 07:08 MCH 35.4 pg (27.0-31.0) H 08/23/17 07:08 MCHC 34.5 g/dL (33.0-37.0) 08/23/17 07:08 RDW 17.4 % (11.5-14.5) H 08/23/17 07:08 Plt Count 262 K/uL (130-400) 08/23/17 07:08 MPV 10.3 fL (7.2-11.7) 08/23/17 07:08 Neut % (Auto) 71.5 % (50.0-75.0) 08/23/17 07:08 Lymph % (Auto) 17.6 % (20.0-40.0) L 08/23/17 07:08 [place] % (Auto) 9.9 % (0.0-10.0) 08/23/17 07:08 Eos % (Auto) 0.4 % (0.0-4.0) 08/23/17 07:08 Baso % (Auto) 0.6 % (0.0-2.0) 08/23/17 07:08 Neut # (Auto) 7.2 K/uL (1.8-7.0) H 08/23/17 07:08 Lymph # (Auto) 1.8 K/uL (1.0-4.3) 08/23/17 07:08 [place] # (Auto) 1.0 K/uL (0.0-0.8) H 08/23/17 07:08 Eos # (Auto) 0.0 K/uL (0.0-0.7) 08/23/17 07:08 Baso # (Auto) 0.1 K/uL (0.0-0.2) 08/23/17 07:08 PT 14.0 SECONDS (9.7-12.2) H 08/23/17 07:08 INR 1.2 08/23/17 07:08 APTT 34 SECONDS (21-34) 08/23/17 07:08 Sodium 134 mmol/L (132-148) 08/23/17 07:08 Potassium 4.1 mmol/L (3.6-5.2) 08/23/17 07:08 Chloride 97 mmol/L (98-107) L 08/23/17 07:08 Carbon Dioxide 26 mmol/L (22-30) 08/23/17 07:08 Anion Gap 15 (10-20) 08/23/17 07:08 BUN 7 mg/dL (9-20) L 08/23/17 07:08 Creatinine 0.7 mg/dL (0.8-1.5) L 08/23/17 07:08 Est GFR ( Amer) > 60 08/23/17 07:08 Est GFR (Non-Af Amer) > 60 08/23/17 07:08 Random Glucose 118 mg/dL (75-110) H 08/23/17 07:08 Calcium 9.0 mg/dl (8.6-10.4) 08/23/17 07:08 Phosphorus 2.7 mg/dL (2.5-4.5) 08/23/17 07:08 Magnesium 1.3 mg/dL (1.6-2.3) L 08/23/17 07:08 Total Bilirubin 3.5 mg/dL (0.2-1.3) H 08/23/17 07:08 AST 101 U/L (17-59) H 08/23/17 07:08 ALT 38 U/L (21-72) 08/23/17 07:08 Alkaline Phosphatase 322 U/L (38-126) H 08/23/17 07:08 Troponin I < 0.0120 ng/mL (0.00-0.120) 08/19/17 20:42 Total Protein 7.5 g/dL (6.3-8.3) 08/23/17 07:08 Albumin 3.3 g/dL (3.5-5.0) L 08/23/17 07:08 Globulin 4.2 gm/dL (2.2-3.9) H 08/23/17 07:08 Albumin/Globulin Ratio 0.8 (1.0-2.1) L 08/23/17 07:08 Lipase 502 U/L (23-300) H 08/19/17 20:42 Vitamin B12 695 pg/mL (239-931) 08/23/17 07:08 Folate 7.9 ng/mL 08/23/17 07:08 Cortisol AM Sample 26.1 ug/dL (4.46-22.7) H 08/22/17 08:00 Urine Color [place] (YELLOW) 08/20/17 01:14 Urine Clarity Hazy (Clear) 08/20/17 01:14 Urine pH 5.0 (5.0-8.0) 08/20/17 01:14 Ur Specific [place] 1.024 (1.003-1.030) 08/20/17 01:14 Urine Protein 1+ mg/dL (NEGATIVE) H 08/20/17 01:14 Urine Glucose (UA) Normal mg/dL (Normal) 08/20/17 01:14 Urine Ketones Negative mg/dL (NEGATIVE) 08/20/17 01:14 Urine Blood 1+ (NEGATIVE) H 08/20/17 01:14 Urine Nitrate Negative (NEGATIVE) 08/20/17 01:14 Urine Bilirubin 1+ (NEGATIVE) H 08/20/17 01:14 Urine Urobilinogen 4.0 mg/dL (0.2-1.0) 08/20/17 01:14 Ur Leukocyte Esterase Neg [place]/uL (Negative) 08/20/17 01:14 Urine WBC (Auto) 6 /hpf (0-5) H 08/20/17 01:14 Urine RBC (Auto) 4 /hpf (0-3) H 08/20/17 01:14 Ur Squamous Epith Cells 5 /hpf (0-5) 08/20/17 01:14 Hyaline Casts 6-10 /lpf (0-2) H 08/20/17 01:14 Urine Opiates Screen Negative (NEGATIVE) 08/20/17 01:14 Urine Methadone Screen Negative (NEGATIVE) 08/20/17 01:14 Ur Barbiturates Screen Negative (NEGATIVE) 08/20/17 01:14 Ur Phencyclidine Scrn Negative (NEGATIVE) 08/20/17 01:14 Ur Amphetamines Screen Negative (NEGATIVE) 08/20/17 01:14 U Benzodiazepines Scrn Negative (NEGATIVE) 08/20/17 01:14 U Oth Cocaine Metabols Negative (NEGATIVE) 08/20/17 01:14 U Cannabinoids Screen Positive (NEGATIVE) H 08/20/17 01:14 Alcohol, Quantitative < 10 mg/dl (0-10) 08/20/17 01:14 RPR Nonreactive (NONREACTIVE) 08/21/17 11:27 Discharge Exam - Head Exam Head Exam: ATRAUMATIC, NORMOCEPHALIC Discharge Plan - Follow Up Plan Condition: FAIR Disposition: HOME/ ROUTINE Additional Instructions: Patient is to be discharged to a rehab facility per Dr. Gray. Patient it to follow up with his primary care physician within one week of being discharged. If he he does not have a primary care physician, he can follow up with the [facility] located in the [facility]. The phone number is [phone], please call to schedule an appointment. Patient is to follow up with Dr. Roe Ball (Neurology) for further evaluation of recurrent syncopal episodes upon discharge from Rehab Facility. Patient is to follow up with Dr. Almita Washburn (Cardiology) within two weeks of being discharged for continued management and evaluation of recurrent syncopal episodes. It was stressed to the patient that he needs to discontinue drinking alcohol. Continuing to drink alcohol will only make these symptoms worse. He is not only doing damage to his brain but he was also found to have elevated liver enzymes, indicating damage to his liver. This are local Alcoholic Anonymous support groups located in near by [place], [place] [phone] and [place], [place] [phone]. Please call for more support in helping to quit drinking alcohol. Patient is to continue taking his home medications as followed: (Carotid Stenosis) Clopidogrel (Plavix) 75 mg PO once daily (Carotid Stenosis) Aspirin 81 mg PO once daily (Depression) Escitalopram (Lexapro) 5 mg PO once daily - disp #30 tabs --> increased to 10 mg PO once daily (Alcohol Abuse) Folic Acid 1 mg PO once daily (Alcohol Abuse) Multivitamin 1 tab PO once daily (Alcohol Abuse) Thiamine (Vitamin B1 tab) 100 mg PO once daily (Prophylactic Care)Saccharomyces Boulardi (Florastor) 250 mg PO BID Medications to be STOPPED. (High Blood Pressure) Amlodipine (Norvasc) 5 mg PO once daily (High Blood Pressure) Enalapril Maleate (Vasotec) 10 mg PO once daily It was stress to the patient the importance of close and consistent follow up, along with life style changes to improve these symptoms. Patient states he understands. If patient begins to experience any new or worsening symptoms, please go to the nearest emergency department. Referrals: Fito Garcia MD [Staff Provider] - Roe Ball MD [Staff Provider] - Almita Washburn MD [Staff Provider] -
--- NOTE | 2017-08-23 19:38 | CP.PCM.PN ---
Subjective - Date & Time of Evaluation Date of Evaluation: 08/22/17 Time of Evaluation: 09:05 - Subjective Subjective: Pt seen with and daughter at bedside No syncope or dizziness today Objective - Vital Signs/Intake and Output Vital Signs (last 24 hours): Temp Pulse Resp BP Pulse Ox 98.3 F 71 20 165/90 H 95 08/23/17 15:45 08/23/17 16:00 08/23/17 15:45 08/23/17 15:45 08/23/17 15:45 Intake and Output: 08/23/17 08/24/17 18:59 06:59 Intake Total 500 Balance 500 - Labs Labs: 08/23/17 07:08 08/23/17 07:08 PT 14.0 SECONDS (9.7-12.2) H 08/23/17 07:08 INR 1.2 08/23/17 07:08 APTT 34 SECONDS (21-34) 08/23/17 07:08 - Constitutional Appears: Non-toxic - Head Exam Head Exam: NORMOCEPHALIC - Eye Exam Eye Exam: absent: Scleral icterus - ENT Exam ENT Exam: Mucous Membranes Moist - Neck Exam Neck Exam: Full ROM - Respiratory Exam Respiratory Exam: Clear to Ausculation Bilateral - Cardiovascular Exam Cardiovascular Exam: REGULAR RHYTHM - GI/Abdominal Exam GI & Abdominal Exam: Soft. absent: Tenderness - Extremities Exam Extremities Exam: absent: Full ROM, Pedal Edema - Neurological Exam Neurological Exam: Alert, Awake, Oriented x3. absent: CN II-XII Intact Assessment and Plan - Assessment and Plan (Free Text) Assessment: Recurrent syncope of unknown etiology Chronic Etoh abuse HTN Plan: TILT TABLE TEST Loop recorder implant if Tilt table test is negative. Above procedures were explain to family and patient.
--- NOTE | 2017-08-24 07:08 | PROCN ---
PROCEDURE: Linq loop recorder implant ANESTHESIA: Versed 1 mg IV and Benadryl 25 mg IV push. INDICATION: Recurrent syncope. SURGEON: Rosio Bustamante MD DESCRIPTION OF PROCEDURE: After an informed consent, the patient was prepped and draped in the usual sterile fashion. Subsequently, the patient received subcutaneous lidocaine to the fourth intercostal space, 2 cm left of the parasternal area for local anesthesia. A small incision was made and the loop recorder was implanted. The patient tolerated the procedure well. There was no bleeding, 2 gm of Ancef IV push was given 15 minutes prior to the procedure. PARAMETERS: R-wave 0.3 mV. Rosio Bustamante MD
== END 2017-08-23 18:47 | DRG 261 ==
LOC: C.ER 20:08 → C.6T 22:51 → OBSVTOIN 08-21 11:21
PROVIDERS: ADMIT Family Medicine; ATTEND Family Medicine
PROC: 4A02XFZ Measurement of Cardiac Rhythm, External Approach (ICD-10-PCS; principal; 2017-08-23)
PROC: 0JH602Z Insertion of Monitoring Device into Chest Subcutaneous Tissue and Fascia, Open Approach (ICD-10-PCS; 2017-08-23)
PROC: 4A03XB1 Measurement of Arterial Pressure, Peripheral, External Approach (ICD-10-PCS; 2017-08-23)
DX: R55 Syncope and collapse (principal); F33.1 Major depressive disorder, recurrent, moderate; N39.0 Urinary tract infection, site not specified; E78.5 Hyperlipidemia, unspecified; F10.20 Alcohol dependence, uncomplicated; F12.90 Cannabis use, unspecified, uncomplicated; F41.9 Anxiety disorder, unspecified; I10 Essential (primary) hypertension; R29.6 Repeated falls; I65.22 Occlusion and stenosis of left carotid artery; R56.9 Unspecified convulsions; Z87.891 Personal history of nicotine dependence; D53.9 Nutritional anemia, unspecified